=== PATIENT | female | born 1970 | race Caucasian/White ===

== ENCOUNTER 2017-11-06 08:17 | Emergency (ER) | payer MEDICAID, SELFPAY ==
[2017-11-06 08:29] VITALS: BP 140/97; PULSE 92; RESP 16; TEMP 37.1; O2SAT 96
--- NOTE | 2017-11-06 08:34 | W.ED.GENAD ---
Discharge Plan Disposition Patient Disposition: HOME Condition: Stable Discharge Details Chief Complaint: Sorethroat Clinical Impression: Pharyngitis Primary Care Provider: Riri Awad ED Provider: Celia Maloney Home Meds and New Rx's Prescriptions: Continue calcium carbonate-vitamin D3 1 EACH tablet 1 ea PO BID RF: 0 Discharge Instructions Instructions: Pharyngitis (ED) Additional Instructions: Please return immediately to the emergency department if you develop any new or worsening symptoms or if you become otherwise concerned. It is extremely important that you make an appointment to seen by your primary care doctor within the next 1-2 weeks in follow-up for this visit. Stand Alone Forms: Work Release Referrals: Riri Awad PA [Primary Care Provider] - Discharge Data Discharge Date/Time-TO BE ENTERED AT DEPARTURE: 11/06/17 09:06 Medical Decision Making MDM Narrative Medical decision making narrative: Sloane Marte is a 47-year-old woman with history of hypertension presenting to the emergency department with sore throat and subjective fevers since yesterday. On exam she is well and nontoxic-appearing. Her voice is slightly hoarse. She has mild erythema of the posterior oropharynx. No drooling, handling secretions without issue. There is no meningismus. Exam/history not consistent with RPA, GUEST SERVICES AGENT, epiglottitis, meningitis, sepsis. Concern for bacterial versus viral pharyngitis. Plan for rapid strep. Rapid strep negative. Suspect viral pharyngitis. Lengthy discussion with patient regarding return to emergency department precautions and importance of outpatient follow-up with her PCP. Patient has not taken any medications for her sore throat. Will give ibuprofen. Patient is amenable to the plan. Medical Records Medical records reviewed: Yes I reviewed the patient's medical records. Lab Data Lab results reviewed: Yes I reviewed the patient's lab results. HPI - General Adult General Mode of arrival: ambulatory. Date/Time Provider Initiated Documentation: 11/06/17 08:34. Limitations to Documentation: no limitations. Information obtained by: patient and RN notes reviewed. HPI Narrative: Sloane Marte is a 47-year-old woman with history of hypertension presenting to the emergency department with sore throat. Patient reports that she developed sore throat yesterday that seemed somewhat worse this morning. She also has a scratchy voice. She reports no other pain. She has been able to eat and drink without issue. She has had subjective fevers at home. She denies cough, shortness of breath, rash, weakness. Has taken no medications for this. No other recent illnesses. No recent travel. Related Data Home Medications Medication Instructions Recorded Confirmed calcium carbonate-vitamin D3 1 ea PO BID 09/25/12 11/06/17 Allergies Allergy/AdvReac Type Severity Reaction Status Date / Time lactose Allergy Mild Unverified 11/06/17 08:40 Penicillins Allergy Unknown Unverified 11/06/17 08:40 Review of Systems Review of Systems Constitutional: reports subjective fevers Eyes: denies eye pain ENT: denies facial pain, dental pain, reports sore throat Cardiovascular: denies chest pain Respiratory: denies SOB, cough GI: denies abdominal pain, vomiting, diarrhea : denies flank pain MSK: denies back pain, neck pain, arthralgias, myalgias Skin: denies rash Neuro: denies headaches, weakness PFSH Social History Smoking/Tobacco Use Status: Former Tobacco Use Exam Narrative Exam Narrative: Constitutional: well and not-zazmo-rdjcwfkky, pleasant, conversing normally HENT: head atraumatic, normocephalic normal inspection, mucous membranes moist, mild erythema of the posterior oropharynx. Status post tonsillectomy. Handling secretions without issue, no drooling. Eyes: conjunctiva normal, sclera normal, pupils 3mm b/l Neck: no stridor, normal painless ROM, trachea midline, supple Chest: normal inspection Resp: normal work of breathing, LCTAB Cardio: normal rate, normal rhythm, systolic murmur known to patient Back: normal inspection, no rash Skin: warm, dry, normal color, no rash Neuro: alert, not altered, grossly non-focal, normal tone Psych: normal mood, normal affect, normal behavior
[2017-11-06] MEDS: Ibuprofen 400 MG TAB PO (08:50)
--- NOTE | 2017-11-06 08:51 | ED.GENADUL_ITS ---
Discharge Plan Disposition Patient Disposition: HOME Condition: Stable Discharge Details Chief Complaint: Sorethroat Clinical Impression: Pharyngitis Primary Care Provider: Riri Awad ED Provider: Celia Maloney Home Meds and New Rx's Prescriptions: Continue calcium carbonate-vitamin D3 1 EACH tablet 1 ea PO BID RF: 0 Discharge Instructions Instructions: Pharyngitis (ED) Additional Instructions: Please return immediately to the emergency department if you develop any new or worsening symptoms or if you become otherwise concerned. It is extremely important that you make an appointment to seen by your primary care doctor within the next 1-2 weeks in follow-up for this visit. Stand Alone Forms: Work Release Referrals: Riri Awad PA [Primary Care Provider] - Discharge Data Discharge Date/Time-TO BE ENTERED AT DEPARTURE: 11/06/17 09:06 Medical Decision Making MDM Narrative Medical decision making narrative: Sloane Marte is a 47-year-old woman with history of hypertension presenting to the emergency department with sore throat and subjective fevers since yesterday. On exam she is well and nontoxic- appearing. Her voice is slightly hoarse. She has mild erythema of the posterior oropharynx. No drooling, handling secretions without issue. There is no meningismus. Exam/history not consistent with RPA, CRITICAL CARE NURSE SPECIALIST, epiglottitis, meningitis, sepsis. Concern for bacterial versus viral pharyngitis. Plan for rapid strep. Rapid strep negative. Suspect viral pharyngitis. Lengthy discussion with patient regarding return to emergency department precautions and importance of outpatient follow-up with her PCP. Patient has not taken any medications for her sore throat. Will give ibuprofen. Patient is amenable to the plan. Medical Records Medical records reviewed: Yes I reviewed the patient's medical records. Lab Data Lab results reviewed: Yes I reviewed the patient's lab results. HPI - General Adult General Mode of arrival: ambulatory . Date/Time Provider Initiated Documentation: 11/06/17 08:34 . Limitations to Documentation: no limitations . Information obtained by: patient and RN notes reviewed . HPI Narrative: Sloane Marte is a 47-year-old woman with history of hypertension presenting to the emergency department with sore throat. Patient reports that she developed sore throat yesterday that seemed somewhat worse this morning. She also has a scratchy voice. She reports no other pain. She has been able to eat and drink without issue. She has had subjective fevers at home. She denies cough, shortness of breath, rash, weakness. Has taken no medications for this. No other recent illnesses. No recent travel. Related Data Home Medications Medication Instructions Recorded Confirmed calcium carbonate-vitamin D3 1 ea PO BID 09/25/12 11/06/17 Allergies Allergy/AdvReac Type Severity Reaction Status Date / Time lactose Allergy Mild Unverified 11/06/17 08:40 Penicillins Allergy Unknown Unverified 11/06/17 08:40 Review of Systems Review of Systems Constitutional: reports subjective fevers Eyes: denies eye pain ENT: denies facial pain, dental pain, reports sore throat Cardiovascular: denies chest pain Respiratory: denies SOB, cough GI: denies abdominal pain, vomiting, diarrhea : denies flank pain MSK: denies back pain, neck pain, arthralgias, myalgias Skin: denies rash Neuro: denies headaches, weakness PFSH Social History Smoking/Tobacco Use Status: Former Tobacco Use Exam Narrative Exam Narrative: Constitutional: well and juz-iqupt-hpnkxntjk, pleasant, conversing normally HENT: head atraumatic, normocephalic normal inspection, mucous membranes moist, mild erythema of the posterior oropharynx. Status post tonsillectomy. Handling secretions without issue, no drooling. Eyes: conjunctiva normal, sclera normal, pupils 3mm b/l Neck: no stridor, normal painless ROM, trachea midline, supple Chest: normal inspection Resp: normal work of breathing, LCTAB Cardio: normal rate, normal rhythm, systolic murmur known to patient Back: normal inspection, no rash Skin: warm, dry, normal color, no rash Neuro: alert, not altered, grossly non-focal, normal tone Psych: normal mood, normal affect, normal behavior
== END 2017-11-06 09:06 | disposition home or self-care (01) ==
PROVIDERS: Emergency Provider Student in an Organized Health Care Education/Training Program; PCP Physician Assistant Medical
DX: J02.9 Acute pharyngitis, unspecified (principal); R50.9 Fever, unspecified; I10 Essential (primary) hypertension
CPT/HCPCS: 87880; 99282; 87081

== ENCOUNTER 2017-11-10 16:01 | Outpatient (REF) | payer MEDICAID, SELFPAY ==
[2017-11-13 12:07] LABS: Hepatitis C Ab w Rflx HCV PCR Negative (NEGAT)
[2017-11-13 13:12] LABS: HIV-1/2 Ag & Ab Screen Negative (NEGAT)
[2017-11-13 14:10] LABS: Syphilis Serology (RPR) Negative (Negative)
[2017-11-13 14:45] LABS: Chlamydia Result Negative; GC Result Negative; Specimen Description URINE
== END 2017-11-10 16:21 ==
LOC: NCHCN 16:01
PROVIDERS: PCP Physician Assistant Medical; Referring Provider Physician Assistant Medical; Visit Provider Physician Assistant Medical
DX: Z11.3 Encounter for screening for infections with a predominantly sexual mode of transmission (principal); Z11.4 Encounter for screening for human immunodeficiency virus [HIV]; Z11.59 Encounter for screening for other viral diseases; Z01.84 Encounter for antibody response examination
CPT/HCPCS: 86803; 87389; 87491; 87591; 86592

== ENCOUNTER 2019-03-08 08:25 | Outpatient (REF) | payer MEDICAID, SELFPAY ==
[2019-03-08 19:54] LABS: Anion Gap 10.7 mmol/L (3-11); BUN 12 mg/dL (7-18); CO2 26.3 mmol/L (21.0-32.0); CREATININE 0.59 mg/dL (0.55-1.02); Calcium 8.9 mg/dL (8.5-10.1); Calculated LDL 149 mg/dL; Chloride 104 mmol/L (98-107); Cholesterol 216 mg/dL (<200); Glucose 106 mg/dL (74-106); HDL Cholesterol 45 mg/dL (40-60); Potassium 4.3 mmol/L (3.5-5.1); Sodium 141 mmol/L (136-145); TSH 1.42 uIU/mL (0.36-3.74); Triglyceride 110 mg/dL (<150)
== END 2019-03-08 08:45 ==
LOC: NCHCN 08:25
PROVIDERS: PCP Physician Assistant Medical; Visit Provider Nurse Practitioner Family
DX: I10 Essential (primary) hypertension (principal)
CPT/HCPCS: 80048; 80061; 84443

== ENCOUNTER 2019-06-28 10:40 | Emergency (ER) | payer MEDICAID, SELFPAY ==
[2019-06-28 10:56] VITALS: BP 152/96; PULSE 96; RESP 18; TEMP 36.5; O2SAT 96
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
== END 2019-06-28 12:32 | disposition home or self-care (01) ==
PROVIDERS: Emergency Provider Physician Assistant; PCP Physician Assistant Medical
DX: M54.2 Cervicalgia (principal); M54.5 Low back pain; V43.52XA Car driver injured in collision with other type car in traffic accident, initial encounter
CPT/HCPCS: 99283; 72040; L0172

== ENCOUNTER 2019-10-10 00:53 | Outpatient (CLI) | payer MEDICAID, SELFPAY ==
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
== END 2019-10-10 01:13 ==
PROVIDERS: PCP Physician Assistant Medical; Visit Provider Physician Assistant Medical
DX: M50.31 Other cervical disc degeneration, high cervical region (principal); M48.02 Spinal stenosis, cervical region; M54.2 Cervicalgia
CPT/HCPCS: 72141

== ENCOUNTER 2020-05-22 18:31 | Outpatient (REF) | payer MEDICAID, SELFPAY ==
[2020-05-22 18:27] LABS: VALPROIC ACID 24.7 ug/mL (50-100)
[2020-05-22 18:28] LABS: ALT 44 U/L (14-59); AST 24 U/L (15-37); Alkaline Phosphatase 84 U/L (46-116); Anion Gap 10.8 mmol/L (3-11); BUN 11 mg/dL (7-18); Bilirubin, Total 0.5 mg/dL (0.2-1.0); CO2 27.2 mmol/L (21.0-32.0); CREATININE 0.7 mg/dL (0.55-1.02); Calcium 8.9 mg/dL (8.5-10.1); Calculated LDL 125 mg/dL (<100); Chloride 104 mmol/L (98-107); Cholesterol 196 mg/dL (<200); Glucose 118 mg/dL (74-106); HDL Cholesterol 38 mg/dL (40-60); Potassium 3.9 mmol/L (3.5-5.1); Sodium 142 mmol/L (136-145); Total Protein 7.3 g/dL (6.4-8.2); Triglyceride 167 mg/dL (<150)
[2020-05-22 18:29] LABS: Hemoglobin A1C 5.4 % (<5.7)
== END 2020-05-22 18:32 | disposition home or self-care (01) ==
LOC: NCHCN 18:31
PROVIDERS: PCP Physician Assistant Medical; Visit Provider Physician Assistant Medical
DX: R73.03 Prediabetes (principal); I10 Essential (primary) hypertension; Z51.81 Encounter for therapeutic drug level monitoring
CPT/HCPCS: 80053; 80061; 80164; 83036

== ENCOUNTER 2020-07-01 17:35 | Emergency (ER) | payer MEDICAID, SELFPAY ==
--- NOTE | 2020-07-01 17:37 | ED.GENADUL_ITS ---
Discharge Plan Disposition Patient Disposition: HOME Condition: Fair Discharge Details Clinical Impression: COVID-19, Hypokalemia Primary Care Provider: Riri Awad ED Provider: Yeimi King Home Meds and New Rx's Prescriptions: New benzonatate [Tessalon Perles] 100 mg capsule 100 mg PO TID PRN (Reason: cough) Qty: 10 RF: 0 Continued calcium carbonate-vitamin D3 1 EACH tablet 1 ea PO BID RF: 0 divalproex 500 mg Tablet,Delayed Release (Dr/Ec) 500 mg PO BID RF: 0 triamcinolone acetonide 0.025 % Cream 0.025 TOPICAL RF: 0 lisinopril 10 mg Tablet 10 mg PO HS RF: 0 escitalopram oxalate 20 mg Tablet 20 mg PO DAILY RF: 0 Discharge Instructions Instructions: Hypokalemia (ED), Pulse Oximetry (ED), COVID-19 (Coronavirus Disease 2019) (ED) Additional Instructions: Your labs and imaging are reassuring here today. They were significant for a low potassium which was replenished orally. Please encourage potassium rich foods, attached is information on this. In regard to your COVID-19, this is likely what is causing your symptoms. Please encourage water intake. You may continue with Tylenol and/or ibuprofen as needed for discomfort. Prescription for Tessalon Perles has been given to help with cough. This is been sent to your pharmacy of choice. You may qualify for multiclonal antibody infusion as we discussed. Your primary care will reach out to you tomorrow to discuss this further. If you do not hear from them tomorrow morning, please call the office. Please follow-up with primary care in 1 week for reevaluation. You are being sent home with a pulse oximetry, please see attached education on pulse oximetry. If your pulse oximetry reading is less than 90 to 92% please seek care urgently once again. If you develop difficulty breathing, increased shortness of breath, inability to stay hydrated or low oxygen please return to the emergency department once again. Referrals: Riri Awad PA [Primary Care Provider] - Medical Decision Making Patient is a pleasant 49-year-old female presenting today with chief complaint of shortness of breath in the setting of COVID-19. Patient reports she began having symptoms 6 days ago and had a Covid positive test 5 days ago. States over the past 2 to 3 days she developed increased shortness of breath, increased cough and pleuritic chest discomfort. She denies any exertional chest pain. States that she has some nausea but no vomiting. Initially had diarrhea which is now subsided. No melena or bright red blood per rectum. Denies abdominal pain. Has been using Tylenol ibuprofen to help with symptomatic management. Past medical history pertinent for hypertension, psoriasis and anxiety. On exam, patient appears anxious. No respiratory distress. Lungs are clear in all park. Patient is tachycardic with a heart rate of 104. Symptoms are most consistent with known diagnosis of COVID-19. However, unable to rule out pulmonary embolism with PERC criteria based on the patient's tachycardia. Plan to obtain D-dimer for screening. Will obtain bedside x-ray to evaluate for potential bacterial pneumonia although none is appreciated on exam. Patient is afebrile. Will give hydration and reassess EKG reviewed by Dr. Grant. Patient is in normal sinus rhythm with a rate of 95. No acute ischemic changes noted. History and exam not consistent with ACS, dissection. X-ray reviewed by radiology: FINDINGS: Lungs: The lungs are clear without opacity or suspicious parenchymal finding. Pleural spaces: Unremarkable. No pleural effusion. No pneumothorax. Heart/Mediastinum: Unremarkable. No cardiomegaly. Bones/joints: Unremarkable. IMPRESSION: No acute cardiopulmonary process. Labs reviewed. No leukocytosis. Stable H&H. D-dimer within normal limits. Patient potassium 3.1, replenish this orally. Reevaluated patient. Heart rate is coming down. She does appear less anxious a nd is resting comfortably. She continues to have no respiratory distress. Advised her symptoms are associated with her COVID-19. We did discuss [id number] and home regimens that may help with symptomatic management. Patient is requesting medication to help with cough, will prescribe Tessalon Perles. Patient with patient's BMI, I am concerned she is at increased risk for complications and she is a candidate for Mab infusion. I did reach out to on- call primary care physician, Dr. Milner, who is aware of the patient and will help arrange for this as an outpatient tomorrow. Patient I did discuss the potential for infusion. Patient will be sent home with pulse oximeter. Strict return precautions were discussed. All of her questions and concerns were addressed and she is in agreement with this plan. HPI General Mode of arrival: ambulatory . Date/Time Provider Initiated Documentation: 07/01/20 17:37 . Limitations to Documentation: no limitations . Information obtained by: patient and RN notes reviewed . History of Present Illness 49 year old F presents to the emergency department with the chief complaint of increased SOB associated with known COVID diagnosis, described as moderate, Quality is described as aching, and is localized to the chest. Patient reports no radiation. Patient started experiencing this day(s) and it has been constant. No relieving factors improve symptom(s), No exacerbating factors reported . Patient notes chest pain (reports discomfort with coughing), cough, loss of appetite, nausea/vomiting (intermittent nausea, none currently) and shortness of breath; denies fever/chills and rash. Patient did receive the following treatments prior to arrival, NSAID and other (tylenol) Related Data Home Medications Medication Instructions Recorded Confirmed calcium carbonate-vitamin D3 1 ea PO BID 09/25/12 06/28/19 divalproex 500 mg PO BID 06/28/19 07/01/20 escitalopram oxalate 20 mg PO DAILY 06/28/19 07/01/20 lisinopril 10 mg PO HS 06/28/19 07/01/20 triamcinolone acetonide 0.025 TOPICAL 06/28/19 benzonatate [Tessalon Perles] 100 mg PO TID PRN #10 cap 07/01/20 Previous Rx's Medication Instructions Recorded benzonatate [Tessalon Perles] 100 mg PO TID PRN #10 cap 07/01/20 Allergies Allergy/AdvReac Type Severity Reaction Status Date / Time lactose Allergy Mild Unverified 07/01/20 17:49 Penicillins Allergy Unknown Unverified 07/01/20 17:49 General ALBINO: 3 Review of Systems Constitutional Constitutional: Reports as per HPI, Reports chills, Denies fever(s), Reports headache(s), Reports lethargy and Reports poor appetite Eyes Eyes: Denies change in vision ENT Ears, Nose, Mouth, and Throat: Denies dizziness and Reports headache(s) Cardiovascular Cardiovascular: Reports as per HPI, Denies chest pain at rest, Denies chest pain with activity, Denies lightheadedness, Reports dyspnea and Reports dyspnea on exertion Respiratory Respiratory: Reports as per HPI, Denies chest congestion, Reports cough, Denies hemoptysis, Denies pain on inspiration, Reports pain with cough, Reports dyspnea, Reports dyspnea on exertion and Denies wheezing Gastrointestinal Gastrointestinal: Reports as per HPI, Denies abdominal pain, Denies diarrhea, Reports nausea and Denies vomiting Musculoskeletal Musculoskeletal: Reports as per HPI and Denies back pain Integumentary/Breasts Skin/Breast: Reports as per HPI and Denies rash Neurologic Neurologic: Reports as per HPI, Denies dizziness and Reports headache(s) Allergic/Immunologic Allergic/Immunologic: Denies wheezing [facility] Social History Smoking/Tobacco Use Status: Former Tobacco Use Smoking risk assessment performed?: Yes Drug use: Never Substance use type: does not use Do you feel safe in your relationship?: Yes Exam Const General: cooperative, healthy appearing, uncomfortable, no acute distress, well developed and anxious Nutritional Appearance: well nourished and obese Orientation: alert, awake and oriented x3 HENMT Head: normal to inspection Ears: hearing grossly normal bilaterally Face and sinus: normal facial exam Mouth: oral mucosae normal, lip normal, tongue normal and mucous membranes dry (looks dry) Teeth and gingiva: dentition normal Throat: posterior oropharynx normal, tonsils normal and uvula midline Chest Chest: normal inspection of the chest, normal palpation of entire chest wall and no crepitus Resp Effort & Inspection: normal respiratory effort, able to speak in complete sentences and no respiratory distress Auscultation: clear to auscultation bilaterally, no rales, no rhonchi and no wheezes Cardio Rate: tachycardic (104) Rhythm: regular rhythm Heart Sounds: S1 normal and S2 normal GI Inspection: normal to inspection, no edema and non-distended Palpation: soft, no hepatosplenomegaly, not firm, no guarding, not rigid and nontender Auscultation: normal bowel sounds Skin General skin exam: no rashes or lesions noted Trauma: no lacerations or abrasions Neuro General: patient alert, patient awake and patient oriented x3 Cognition: normal cognition Speech: speech normal Gait: normal gait Extrem General: normal to inspection, capillary refill normal, no pedal edema, no calf tenderness and normal gait Psych Appearance: grossly normal and well kempt Mental Status: mental status grossly normal Speech and Movement: speech and movement normal
[2020-07-01 17:43] VITALS: BP 153/92; PULSE 105; RESP 18; TEMP 36.5; O2SAT 96
--- NOTE | 2020-07-01 18:00 | RT.EKG_ITS ---
APPROVED REPORT Exam: Resting ECG Reason for Exam: SOB Patient Location: E HR:95 bpm ECG Measurements Heart Rate 95 AXIS ID 177 P 54 QRSd 85 QRS 26 QT 356 T 44 QTc 448 Conclusion Sinus rhythm...normal P axis, V-rate 60- 99
[2020-07-01 18:20] LABS: Abs Immature Grans 0.01 10^3/uL (0.0-0.06); Absolute Basophil Count 0.01 10^3/uL (0.0-0.2); Absolute Eosinophil Count 0.04 10^3/uL (0.0-0.7); Absolute Lymphocyte Count 0.83 10^3/uL (1.2-3.4); Absolute Monocyte Count 0.44 10^3/uL (0.1-0.8); Absolute Neutrophil Count 2.88 10^3/uL (1.2-6.7); Basophils % 0.2; HCT 36.8 % (36.0-46.0); HGB 12.4 g/dL (11.2-15.7); Immature Grans % 0.2; Lymphocytes % 19.7; MCH 32.1 pg (27.0-33.0); MCHC 33.7 % (32.0-36.0); MCV 95.3 fL (80-95); MPV 8.4 fL (8.0-11.0); Monocytes % 10.5; Neutrophils % 68.4; Nucleated RBC 0 %; Platelet Count 207 10^3/uL (130-400); RBC 3.86 10^6/uL (3.93-5.22); RDW 14.3 % (11.7-14.6); RDW-SD 50.2 fL; WBC 4.21 10^3/uL (4.4-10.8)
[2020-07-01 18:25] LABS: ALT 25 U/L (14-59); AST 18 U/L (15-37); Albumin 3.8 g/dL (3.4-5.0); Alkaline Phosphatase 92 U/L (46-116); Anion Gap 10.6 mmol/L (3-11); BUN 8 mg/dL (7-18); Bilirubin, Total 0.5 mg/dL (0.2-1.0); CO2 26.4 mmol/L (21.0-32.0); CREATININE 0.8 mg/dL (0.55-1.02); Calcium 8.7 mg/dL (8.5-10.1); Chloride 103 mmol/L (98-107); Glucose 143 mg/dL (74-106); Potassium 3.1 mmol/L (3.5-5.1); Sodium 140 mmol/L (136-145); Total Protein 7.6 g/dL (6.4-8.2)
[2020-07-01 18:33] LABS: PTT Activated 24.7 sec (21.0-27.5); Prothrombin Time 10.3 sec (9.3-11.0)
[2020-07-01 18:50] LABS: D-Dimer 464 ng/mlFEU (<500)
--- NOTE | 2020-07-01 19:01 | DI.RAD_ITS ---
Exam(s) XR PORTABLE CHEST AP EXAM: XR PORTABLE CHEST AP CLINICAL HISTORY: covid +, increased SOB. TECHNIQUE: 2D digital imaging was performed. COMPARISON: No exams were available for comparison FINDINGS: Heart size is upper normal. The mediastinum is not widened. Lungs are clear. No infiltrates nor obvious pleural effusions. IMPRESSION: No acute pulmonary findings on this single AP portable view of the chest. DATA REPOSITORY: RADIATION DOSE DELIVERED: All CT scans at this facility use at least one of these dose optimization techniques: automated exposure control; mA and/or kV adjustment per patient size (includes targeted e xams where dose is matched to clinical indication); or iterative reconstruction.
--- NOTE | 2020-07-01 19:21 | DI.VRAD_ITS ---
PROCEDURE INFORMATION: Exam: XR Chest Exam date and time: 07/01/2020 7:01 PM Age: 49 years old Clinical indication: Shortness of breath TECHNIQUE: Imaging protocol: XR of the chest. Views: 1 view. COMPARISON: No relevant prior studies available. FINDINGS: Lungs: The lungs are clear without opacity or suspicious parenchymal finding. Pleural spaces: Unremarkable. No pleural effusion. No pneumothorax. Heart/Mediastinum: Unremarkable. No cardiomegaly. Bones/joints: Unremarkable. IMPRESSION: No acute cardiopulmonary process. Dictated and Authenticated by: Fabrice Summers MD. Ordering:JUDY Jalloh MD
--- NOTE | 2020-07-01 19:33 | NUR.NOTE ---
Referral to Care Management, patient needs [facility] 07/02/20. Dr. Alvarenga quality control lab technician is aware.Nursing Note:
[2020-07-01 19:45] VITALS: BP 143/78; PULSE 96; RESP 18; TEMP 36.5; O2SAT 96
== END 2020-07-01 19:49 | disposition home or self-care (01) ==
PROVIDERS: Emergency Provider Physician Assistant; PCP Physician Assistant Medical
DX: U07.1 COVID-19 (principal); R06.02 Shortness of breath; R05 Cough; R07.81 Pleurodynia; E87.6 Hypokalemia
CPT/HCPCS: 36415; 80053; 93005; 99285; 71045; 85025; 85379; 85610; 85730; 93010; 99284

== ENCOUNTER 2020-07-02 10:44 | Outpatient (CLI) | payer MEDICAID, SELFPAY ==
[2020-07-02 11:05] VITALS: BP 128/87; PULSE 97; RESP 16; TEMP 36; O2SAT 97
[2020-07-02 11:10] VITALS: BP 128/87; PULSE 97; RESP 16; TEMP 36; O2SAT 97
[2020-07-02] MEDS: Normal Saline 500 ML 30 ML IV (11:36)
[2020-07-02] MEDS: Normal Saline Flush 10 ML SYR IVP (11:37)
[2020-07-02 11:50] VITALS: BP 127/85; PULSE 91; RESP 14; TEMP 36.5; O2SAT 96
[2020-07-02 12:20] VITALS: BP 121/85; PULSE 95; TEMP 36.4; O2SAT 95
[2020-07-02 12:49] VITALS: BP 129/85; PULSE 88; RESP 12; TEMP 36.9; O2SAT 98
[2020-07-02 13:25] VITALS: BP 119/85; PULSE 85; RESP 12; TEMP 36.8; O2SAT 97
== END 2020-07-02 10:45 | disposition home or self-care (01) ==
LOC: INF 10:47
PROVIDERS: PCP Physician Assistant Medical; Visit Provider Family Medicine
DX: U07.1 COVID-19 (principal)
CPT/HCPCS: 96365

== ENCOUNTER 2020-07-06 10:16 | Outpatient (REF) | payer MEDICAID, SELFPAY ==
[2020-07-06 15:34] LABS: Abs Immature Grans 0.03 10^3/uL (0.0-0.06); Absolute Basophil Count 0.02 10^3/uL (0.0-0.2); Absolute Eosinophil Count 0.13 10^3/uL (0.0-0.7); Absolute Lymphocyte Count 1.39 10^3/uL (1.2-3.4); Absolute Monocyte Count 0.38 10^3/uL (0.1-0.8); Absolute Neutrophil Count 2.81 10^3/uL (1.2-6.7); Basophils % 0.4; Eosinophils % 2.7; HCT 37.2 % (36.0-46.0); HGB 12.3 g/dL (11.2-15.7); Immature Grans % 0.6; Lymphocytes % 29.2; MCH 31.8 pg (27.0-33.0); MCHC 33.1 % (32.0-36.0); MCV 96.1 fL (80-95); MPV 8.8 fL (8.0-11.0); Neutrophils % 59.1; Nucleated RBC 0 %; Platelet Count 259 10^3/uL (130-400); RBC 3.87 10^6/uL (3.93-5.22); RDW 13.9 % (11.7-14.6); RDW-SD 48.9 fL; WBC 4.76 10^3/uL (4.4-10.8)
[2020-07-06 15:44] LABS: Anion Gap 10.7 mmol/L (3-11); BUN 13 mg/dL (7-18); CO2 27.3 mmol/L (21.0-32.0); CREATININE 0.6 mg/dL (0.55-1.02); Calcium 8.4 mg/dL (8.5-10.1); Chloride 103 mmol/L (98-107); Glucose 97 mg/dL (74-106); Sodium 141 mmol/L (136-145)
== END 2020-07-06 10:17 | disposition home or self-care (01) ==
LOC: NCHCN 10:16
PROVIDERS: PCP Physician Assistant Medical; Visit Provider Physician Assistant Medical
DX: E87.6 Hypokalemia (principal); U07.1 COVID-19
CPT/HCPCS: 80048; 85025

== ENCOUNTER 2020-08-07 02:55 | Outpatient (CLI) | payer MEDICAID, SELFPAY ==
[2020-08-07 15:41] LABS: Abs Immature Grans 0.02 10^3/uL (0.0-0.06); Absolute Basophil Count 0.04 10^3/uL (0.0-0.2); Absolute Eosinophil Count 0.17 10^3/uL (0.0-0.7); Absolute Lymphocyte Count 1.88 10^3/uL (1.2-3.4); Absolute Monocyte Count 0.69 10^3/uL (0.1-0.8); Absolute Neutrophil Count 3.87 10^3/uL (1.2-6.7); Basophils % 0.6; Eosinophils % 2.5; HCT 37.4 % (36.0-46.0); HGB 12.4 g/dL (11.2-15.7); Immature Grans % 0.3; Lymphocytes % 28.2; MCH 32.1 pg (27.0-33.0); MCHC 33.2 % (32.0-36.0); MCV 96.9 fL (80-95); MPV 8.8 fL (8.0-11.0); Monocytes % 10.3; Neutrophils % 58.1; Nucleated RBC 0 %; Platelet Count 300 10^3/uL (130-400); RBC 3.86 10^6/uL (3.93-5.22); RDW 14.2 % (11.7-14.6); RDW-SD 50.3 fL; WBC 6.67 10^3/uL (4.4-10.8)
[2020-08-07 17:09] LABS: ALT 37 U/L (14-59); AST 24 U/L (15-37); Albumin 4.1 g/dL (3.4-5.0); Alkaline Phosphatase 81 U/L (46-116); BUN 11 mg/dL (7-18); Bilirubin, Total 0.4 mg/dL (0.2-1.0); CREATININE 0.7 mg/dL (0.55-1.02); Calcium 9.1 mg/dL (8.5-10.1); Chloride 104 mmol/L (98-107); Glucose 97 mg/dL (74-106); Potassium 4.1 mmol/L (3.5-5.1); Sodium 142 mmol/L (136-145); Total Protein 7.5 g/dL (6.4-8.2)
== END 2020-08-07 02:56 | disposition home or self-care (01) ==
LOC: LBO 02:55
PROVIDERS: PCP Physician Assistant Medical; Visit Provider Physician Assistant Medical
DX: R53.83 Other fatigue (principal); U07.1 COVID-19
CPT/HCPCS: 36415; 80053; 84443; 85025

== ENCOUNTER 2020-10-14 15:33 | Outpatient (REF) | payer MEDICAID, SELFPAY ==
[2020-10-14 20:23] LABS: Anion Gap 9.9 mmol/L (3-11); BUN 12 mg/dL (7-18); CO2 28.1 mmol/L (21.0-32.0); CREATININE 0.6 mg/dL (0.55-1.02); Chloride 101 mmol/L (98-107); Glucose 72 mg/dL (74-106); Potassium 3.7 mmol/L (3.5-5.1); Sodium 139 mmol/L (136-145)
== END 2020-10-14 15:34 | disposition home or self-care (01) ==
LOC: NCHCN 15:33
PROVIDERS: PCP Physician Assistant Medical; Visit Provider Physician Assistant Medical
DX: I10 Essential (primary) hypertension (principal); G43.909 Migraine, unspecified, not intractable, without status migrainosus; F32.9 Major depressive disorder, single episode, unspecified; Z51.81 Encounter for therapeutic drug level monitoring
CPT/HCPCS: 80048; 80164; 83735

== ENCOUNTER 2021-05-13 03:18 | Inpatient (IN) | payer MEDICAID, SELFPAY ==
[2021-05-13] VITALS (84 sets, daily range): BP systolic 111–170; BP diastolic 71–156; PULSE 98–124; RESP 10–32; TEMP 36.3–36.7; O2SAT 88–98
--- NOTE | 2021-05-13 | DI.MRI_ITS ---
Exam(s) MR ABDOMEN WO EXAM: MR ABDOMEN WO CLINICAL HISTORY: gallstone pancreatitis/elevated T Hood. TECHNIQUE: Multiplanar multisequence MRA of the Abdomen was performed. COMPARISON: US US ABDOMEN LIMITED from 05/13/[address] ABDOMEN PELVIS W from 05/13/2021 FINDINGS: Liver: The liver measures 21 cm long. Pancreas: There is mild stranding seen around the head and proximal body of the pancreas. There is s ome infiltration in the pancreatic head. No focal peripancreatic fluid collection is present. Gallbladder and Bile Ducts: Gallstones are present. No gallbladder wall thickening is present. Ther e is pericholecystic fluid. There is no biliary ductal dilatation. No choledocholithiasis is presen t. Adrenals: Unremarkable. Kidneys: Unremarkable. Spleen: Unremarkable. Bowel: Unremarkable. Aorta: Unremarkable. Soft Tissues: Unremarkable. Bone: Unremarkable. Lymph Nodes: Unremarkable. IMPRESSION: 1. Cholelithiasis. No biliary ductal dilatation or choledocholithiasis. Mild pericholecystic fluid. 2. Mild edema seen in the pancreatic head with a small amount of fluid around the pancreatic head and proximal body. The findings raise a question of acute pancreatitis. No focal fluid collection is s een to suggest abscess or pseudocyst. 3. Hepatomegaly. DATA REPOSITORY:
--- NOTE | 2021-05-13 03:30 | DI.CT_ITS ---
Exam(s) CT ABDOMEN PELVIS W EXAM: CT ABDOMEN PELVIS W CLINICAL HISTORY: epigastric/RUQ pain TECHNIQUE: Imaging Protocol: Axial computed tomography images with coronal and sagittal reformatted images were created and reviewed CONTRAST MATERIAL: Intravenous: Omnipaque 350 Contrast volume:100 mL Oral: No COMPARISON: No exams were available for comparison FINDINGS: ABDOMEN: Lung Bases: Normal where visualized. Liver: There is diffuse fatty infiltration of the liver. The liver measures 22 cm long. No measurable mass. Portal, Superior Mesenteric, and Splenic Veins: Unremarkable. Gallbladder and Biliary Tract: Cholelithiasis. There is a small amount of pericholecystic fluid. No b iliary ductal dilatation. Pancreas: Normal density, no abnormal calcifications or inflammatory process. Spleen: Normal. Adrenals: No masses seen. Kidneys: Normal size, contour and axis. No radiodense stones or obstructive uropathy. No masses seen. Abdominal Aorta: Abdominal portion non-dilated. Bowel: No obstruction or bowel wall thickening. The patient appears status post appendectomy. Peritoneal Cavity: No ascites, collection or mesenteric inflammatory response. No free air. Lymph Nodes: Within normal limits. Bones: Within normal limits for the patient's age. Soft Tissues: Unremarkable. PELVIS: Bladder: Symmetric distention, no gross wall thickening. Reproductive Organs: Patient has an IUD which is in good position. Lymph Nodes: Within normal limits. Bones: Within normal limits for the patient's age. IMPRESSION: Cholelithiasis with small amount of pericholecystic fluid. This may represent acute cholecystitis. Ga llbladder ultrasound is recommended for further evaluation. RADIATION DOSE DELIVERED: 1,236.93mGy.cm Total DLP DATA REPOSITORY: All CT scans at this facility are submitted to the National Radiology Data Registry (NRDR) Dose Index Registry (DIR) with the [employer] (A[employer]). RADIATION OPTIMIZATION: All CT scans at this facility use at least one of these dose optimization te chniques: automated exposure control; mA and/or kV adjustment per patient size (includes targeted exa ms where dose is matched to clinical indication); or iterative reconstruction.
--- NOTE | 2021-05-13 03:41 | ED.GENADUL_ITS ---
Discharge Plan Disposition Patient Disposition: [facility] INPATIENT Condition: Serious Discharge Details Clinical Impression: Acute cholecystitis, Acute pancreatitis Admit Date/Time: 05/13/21 09:21 Admit Provider: Marce Allen Attending Provider: Marce Allen Primary Care Provider: Riri Awad ED Provider: Manjeet Maloney Discharge Data Discharge Date/Time-TO BE ENTERED AT DEPARTURE: 05/13/21 12:56 Medical Decision Making <Ronak Grant MD - Last Filed: 05/13/21 07:28> 50-year-old female presents from home. States she was awakened early this morning with epigastric pain that is sharp and constant. One episode of emesis and some nausea. No fever or chills. She has had an appendectomy and previous C-sections. On exam patient is tender in the epigastrium and right upper quadrant. Differential diagnosis includes biliary colic, cholecystitis, pancreatitis. Patient IV established, given fluids, antiemetic, analgesia. Patient's laboratories reveal a white blood cell count of 12, hematocrit 42, platelets 407. Sodium 133, potassium 3.1, BUN 19, creatinine 0.9. Total bili of 2.9, AST 177, ALT 121, lipase 10,682. CT images: Cholelithiasis within a distended gallbladder with small amount of adjacent fluid suggesting possible acute cholecystitis. No choledocholithiasis noted. Bile ducts are nondilated. Must exclude choledocholithiasis. Patient referred for ultrasound. Please see Dr. Maloney's note regarding final impression and disposition. Lab Data Lab results reviewed: Yes I reviewed the patient's lab results. Labs: Laboratory Results - last 24 hr 05/13/21 05/13/21 05/13/21 03:37 03:37 04:05 WBC 12.40 H RBC 4.51 Hgb 14.4 Hct 42.3 MCV 93.8 MCH 31.9 MCHC 34.0 RDW 13.8 Plt Count 407 H MPV 9.0 Immature Gran % 0.2 Neutrophils % 75.7 Lymphocytes % 16.1 Monocytes % 7.3 Eosinophils % 0.3 Basophils % 0.4 Nucleated RBC % 0 Absolute Neutrophils 9.39 H Absolute Lymphocytes 2.00 Absolute Monocytes 0.91 H Absolute Eosinophils 0.04 Absolute Basophils 0.05 Sodium 133 L Potassium 3.1 L Chloride 93 L Carbon Dioxide 27.2 Anion Gap 12.8 H BUN 19 H Creatinine 0.9 Estimated GFR/1.73 m2 >= 60.00 Glucose 279 H Calcium 9.2 Magnesium 2.0 Total Bilirubin 2.9 H AST 177 H ALT 121 H Alkaline Phosphatase 94 Total Protein 8.3 H Albumin 4.6 Lipase 96796 H Urine Color Yellow Urine Clarity Clear Urine pH 6.5 Ur Specific [place] 1.020 Urine Protein Trace H Urine Ketones 40 H Urine Blood Small H Urine Nitrite Negative Urine Bilirubin Negative Urine Urobilinogen 2.0 H Ur Leukocyte Esterase Trace H Urine RBC 5-10 H Urine WBC 10-20 H Ur Epithelial Cells Few Urine Crystals Negative Urine Bacteria Few Urine Casts Negative Urine Mucus Negative Urine Other Rare Trichomonas Ur Culture Indicated? Yes Urine Glucose 100 HPI <Ronak Grant MD - Last Filed: 05/13/21 07:28> General Mode of arrival: ambulatory . Date/Time Provider Initiated Documentation: 05/13/21 03:35 . Limitations to Documentation: no limitations . Information obtained by: patient . History of Present Illness 50 year old F presents to the emergency department with the chief complaint of Epigastric pain, described as moderate, and is localized to the abdomen. Patient reports no radiation. Patient started experiencing this hour(s) and it has been constant. improves with No relieving factors improve symptom(s), No e xacerbating factors reported . Patient notes loss of appetite and nausea/vomiting; denies fever/chills. Patient did receive the following treatments prior to arrival, none Related Data Home Medications Medication Instructions Recorded Confirmed lisinopril 10 mg tablet 10 mg PO HS 06/28/19 05/13/21 adalimumab 40 mg/0.4 mL 40 mg SUBCUT Q2W 05/13/21 05/13/21 subcutaneous pen kit (Humira(CF) Pen) amitriptyline 10 mg tablet 20 mg PO HS 05/13/21 05/13/21 benzonatate 100 mg capsule 100 mg PO TID PRN 05/13/21 05/13/21 hydrochlorothiazide 25 mg tablet 25 mg PO DAILY 05/13/21 05/13/21 Allergies Allergy/AdvReac Type Severity Reaction Status Date / Time lactose Allergy Mild Unverified 05/13/21 03:27 Penicillins Allergy Unknown Unverified 05/13/21 03:27 General Stated Complaint: Abd Prob ALBINO: 3 Review of Systems <Ronak Grant MD - Last Filed: 05/13/21 07:28> Narrative: 6 systems reviewed and otherwise negative PFSH <Ronak Grant MD - Last Filed: 05/13/21 07:28> All Active Problems Former smoker (Acute) Gallstone pancreatitis (Acute) Gallstones (Acute) COVID-19 (Acute) Hypokalemia (Acute) Acute cholecystitis (Acute) Acute pancreatitis (Acute) Social History Smoking/Tobacco Use Status: Former Tobacco Use Smoking risk assessment performed?: Yes Drug use: Never Substance use type: does not use Do you feel safe in your relationship?: Yes Exam <Ronak Grant MD - Last Filed: 05/13/21 07:28> Narrative Exam Narrative: GEN: awake, alert, oriented 3. Pleasant, well groomed, interactive. HEAD: Normocephalic, atraumatic ENT: Mucous membranes moist, oropharynx unremarkable, External ear exam unremarkable EYES: PERRL, EOMI NECK: Full ROM, no JYOTSNA, no menigismus CHEST/RESP: Nontender, clear to auscultation bilateral, no wheeze/rhonchi/rales CARDIOVASCULAR: regular and tqachycardic, no murmur, rub terry. 2+ Rad pulse bilateral ABDOMEN: Soft, tender in the epigastrium and right upper quadrant, no mass. +Bowel sounds EXT: Full ROM, no edema, no rash Neuro: Grossly normal neurologic exam, conversant, interactive. Psych: Speech fluent, thoughts congruent, affect normal Course <Ronak Grant MD - Last Filed: 05/13/21 07:28> Vital Signs Vital signs: Vital Signs Temperature 36.3 C L 05/13/21 03:22 Pulse 124 H 05/13/21 03:22 Respiratory Rate 22 05/13/21 03:22 Blood Pressure 138/86 05/13/21 03:22 Pulse Oximetry 97 05/13/21 03:22 Temperature 36.3 C L 05/13/21 03:22 Temperature Source Skin 05/13/21 03:22 Pulse 124 H 05/13/21 03:22 Respiratory Rate 22 05/13/21 03:22 Respiratory Effort 05/13/21 03:25 Blood Pressure 138/86 05/13/21 03:22 Blood Pressure Position Supine 05/13/21 03:22 Pulse Oximetry 97 05/13/21 03:22 Oxygen Delivery Method Room Air 05/13/21 03:22 Oxygen Flow Rate 0 05/13/21 03:22 Pain Level 10 05/13/21 03:22 Sign Out <Ronak Grant MD - Last Filed: 05/13/21 07:28> Sign Out Data: Sign Out Comment: Followup US Last updated by Ronak Grant MD at 05/13/21 07:31
[2021-05-13] MEDS: Ondansetron 4 MG/2 ML VIAL IVP ×4 (03:47→15:36)
[2021-05-13] MEDS: HYDROmorphone 2 MG/ML VIAL 1 MG IVP ×2 (03:47→07:00)
[2021-05-13] MEDS: Normal Saline 1,000 ML 1000 ML IV (03:48)
[2021-05-13 04:03] LABS: Abs Immature Grans 0.03 10^3/uL (0.0-0.06); Absolute Basophil Count 0.05 10^3/uL (0.0-0.2); Absolute Eosinophil Count 0.04 10^3/uL (0.0-0.7); Basophils % 0.4; Eosinophils % 0.3; HCT 42.3 % (36.0-46.0); HGB 14.4 g/dL (11.2-15.7); Immature Grans % 0.2; Lymphocytes % 16.1; MCH 31.9 pg (27.0-33.0); MCV 93.8 fL (80-95); Monocytes % 7.3; Neutrophils % 75.7; Nucleated RBC 0 %; Platelet Count 407 10^3/uL (130-400); RBC 4.51 10^6/uL (3.93-5.22); RDW 13.8 % (11.7-14.6); RDW-SD 47.6 fL
[2021-05-13 04:06] LABS: Absolute Monocyte Count 0.91 10^3/uL (0.1-0.8); Absolute Neutrophil Count 9.39 10^3/uL (1.2-6.7)
[2021-05-13 04:16] LABS: Bilirubin Negative (Negative); Blood Small (Negative); Clarity Clear (Clear); Glucose 100 mg/dL (Negative); Ketones 40 mg/dL (Negative); Leukocyte Esterase Trace (Negative); Nitrite Negative (Negative); pH 6.5 (5-8)
[2021-05-13 04:19] LABS: ALT 121 U/L (14-59); AST 177 U/L (15-37); Albumin 4.6 g/dL (3.4-5.0); Alkaline Phosphatase 94 U/L (46-116); Anion Gap 12.8 mmol/L (3-11); BUN 19 mg/dL (7-18); Bilirubin, Total 2.9 mg/dL (0.2-1.0); CO2 27.2 mmol/L (21.0-32.0); CREATININE 0.9 mg/dL (0.55-1.02); Calcium 9.2 mg/dL (8.5-10.1); Chloride 93 mmol/L (98-107); Glucose 279 mg/dL (74-106); Potassium 3.1 mmol/L (3.5-5.1); Sodium 133 mmol/L (136-145); Total Protein 8.3 g/dL (6.4-8.2)
[2021-05-13 04:24] LABS: Bacteria Few HPF (Negative); C & S Indicated? Yes; Casts Negative LPF (Negative); Crystals Negative HPF (Negative); Epithelial Cells Few HPF (Negative); Mucus Negative (Negative)
[2021-05-13 04:34] LABS: Lipase 10682 U/L (73-393)
[2021-05-13] MEDS: POTASSIUM CHLORIDE/0.9% NACL 1,000 ML 150 MEQ IV (04:48)
[2021-05-13] MEDS: Omnipaque 350 MG/ML 100 ML BTL IJ (04:50)
[2021-05-13] MEDS: Normal Saline Flush 10 ML SYR IVP ×2 (04:51→13:28)
--- NOTE | 2021-05-13 07:00 | DI.US_ITS ---
Exam(s) US ABDOMEN LIMITED EXAM: US ABDOMEN LIMITED CLINICAL HISTORY: RUQ pain, gallstones TECHNIQUE: Ultrasound abdomen performed using standard protocol. COMPARISON: CT CT ABDOMEN PELVIS W from 05/13/2021 FINDINGS: PANCREAS: Normal where visualized. LIVER: There is diffuse increased echogenicity of the liver consistent with fatty infiltration. Hepa topedal flow in the Portal Vein. The liver measures in 21 length. GALLBLADDER:Multiple mobile gallstones are present. No evidence of wall thickening. No pericholecyst ic fluid identified. BILIARY SYSTEM: Common bile duct measures < 7 mm. No intrahepatic biliary ductal dilation. AGOSTO'S SIGN: Positive RIGHT KIDNEY: Kidney is normal in size. No evidence of renal calculi. No evidence of hydronephrosis. No renal mass or cyst identified. ASCITES: None seen. IMPRESSION: Cholelithiasis with a positive sonographic Agosto sign suggestive of acute cholecystitis. DATA REPOSITORY:
--- NOTE | 2021-05-13 07:08 | DI.VRAD_ITS ---
PROCEDURE INFORMATION: Exam: CT Abdomen And Pelvis With Contrast Exam date and time: 05/13/2021 4:36 AM Age: 50 years old Clinical indication: Abdominal pain; Localized; Right upper quadrant (ruq); Prior surgery; Surgery date: 6+ months; Surgery type: C-sections; Additional info: Acute ruq pain TECHNIQUE: Imaging protocol: Computed tomography of the abdomen and pelvis with contrast. Radiation optimization: All CT scans at this facility use at least one of these dose optimization techniques: automated exposure control; mA and/or kV adjustment per patient size (includes targeted exams where dose is matched to clinical indication); or iterative reconstruction. Contrast material: OMNI 350; Contrast volume: 100 ml; Contrast route: INTRAVENOUS (IV); COMPARISON: XR PORTABLE CHEST AP 07/01/2020 6:55 PM FINDINGS: Liver: Hepatomegaly. Fatty Infiltration. No mass. Gallbladder and bile ducts: Cholelithiasis within a distended gallbladder with small amount of adjacent fluid suggesting possible acute cholecystitis. No definite wall thickening. Nuclear medicine HIDA scan and/or gallbladder ultrasound may be of benefit to confirm cystic duct obstruction. No choledocholithiasis. Bile ducts nondilated. Pancreas: No enlargement. No mass. No ductal dilatation. Spleen: Normal size. No mass. Adrenal glands: No mass. No enlargement. No hemorrhage. Kidneys and ureters: No mass. No hydronephrosis. No hydroureter or ureterolithiasis. Stomach and bowel: Stomach decompressed and relatively unremarkable. Small bowel normal caliber without mechanical obstruction or pneumatosis. Large bowel relatively unremarkable and decompressed distally. No significant diverticulosis or diverticulitis. No colitis. Appendix: Status post appendectomy. Intraperitoneal space: No significant free fluid. No free intraperitoneal air. Vasculature: Aorta normal caliber without aneurysm. Lymph nodes: No significant lymphadenopathy demonstrated. Urinary bladder: No wall thickening, mass or calculus. Reproductive: Unremarkable uterus. IUD in place without perforation or extrusion. Ovarian follicular changes. No dominant adnexal mass. Bones/joints: Mild degenerative changes noted throughout the spine. No fracture or subluxation. Soft tissues: Small uncomplicated fat containing umbilical hernia. Generous subcutaneous adipose tissues. IMPRESSION: 1. Cholelithiasis within a distended gallbladder with small amount of adjacent fluid suggesting possible acute cholecystitis. No definite wall thickening. Nuclear medicine HIDA scan and/or gallbladder ultrasound may be of benefit to confirm cystic duct obstruction. 2. Nonemergent findings as described above. Dictated and Authenticated by: Talat Hernandez MD. Ordering:VICTORIANO Simons MD
[2021-05-13 07:45] LABS: Source Nasal/Nares
--- NOTE | 2021-05-13 08:11 | NUR.NOTE ---
Nursing Note:Pt is A/O x3 HRR but Tachy, B/P high in response to pain, came down after zofran and pain meds. BS Hypoactive, pain on Right side of abdomen and much worse with gentle touching. No Major swelling noted in extremities, Mild trace edema in BLLE, states that Edema in BLLE is normal for her. Pt is on Monitor and waiting to go to Ultrasound when it is available. Daughter and fiancee have alternated being at bedside. Room has been darkened to allow some rest.
[2021-05-13 08:24] LABS: COVID-19 PCR Negative (Negative)
--- NOTE | 2021-05-13 09:30 | HPE_ITS ---
Date of service: 05/13/21 Time of Service: 09:30 Assessment and Plan Assessment and plan (1) Gallstones: Status: Acute (2) Gallstone pancreatitis: Status: Acute Assessment and plan: pepcid hydration pain management MRCP- neg for choledocholiasis supportive care for pancreatitis repeat labs in am lap rochelle in 2-3 wks time (3) Hypokalemia: Status: Acute (4) Acute cholecystitis: Status: Acute (5) Acute pancreatitis: Status: Acute Assessment and plan: ? (6) Former smoker: Status: Acute History of Present Illness Consults Consult date: 05/13/21 Narrative: from ED: 50-year-old female presents from home.? States she was awakened early this morning with epigastric pain that is sharp and constant.? One episode of emesis and some nausea.? No fever or chills.? She has had an appendectomy and previous C-sections. Patient states she woke up with severe epigastric pain that radiated straight into her back. It was associated with nausea and vomiting. Patient has never had anything like this before. Prior to this episode she has been having mild episodes of right upper quadrant pain associated with eating. They have been very mild and far in between and only lasted a few minutes. This attack was much more severe and was unrelenting and associated with nausea and vomiting. There is a family history of gallbladder disease. She does have children. Patient takes Humira every 2 weeks for eczema. She is no longer on Depakote. She has had no problems with anesthesia in the past. She has no cardiopulmonary problems. MPRESSION: 1. Cholelithiasis.? No biliary ductal dilatation or choledocholithiasis.? Mild pericholecystic fluid. 2. Mild edema seen in the pancreatic head with a small amount of fluid around the pancreatic head and proximal body.? The findings raise a question of acute pancreatitis.? No focal fluid collection is seen to suggest abscess or pseudocyst. 3. Hepatomegaly Review of Systems All systems reviewed & are unremarkable except as noted in HPI and below PFSH All Active Problems Former smoker (Acute) Gallstone pancreatitis (Acute) Gallstones (Acute) COVID-19 (Acute) Hypokalemia (Acute) Acute cholecystitis (Acute) Acute pancreatitis (Acute) Social History Smoking/Tobacco Use Status: Former Tobacco Use Smoking risk assessment performed?: Yes Drug use: Never Substance use type: does not use Do you feel safe in your relationship?: Yes Meds Allergies and Home Medications Allergies Allergy/AdvReac Type Severity Reaction Status Date / Time lactose Allergy Mild Unverified 05/13/21 03:27 Penicillins Allergy Unknown Unverified 05/13/21 03:27 Home Medications Medication Instructions Recorded Confirmed Type lisinopril 10 mg tablet 10 mg PO HS 06/28/19 05/13/21 History adalimumab 40 mg/0.4 mL 40 mg SUBCUT Q2W 05/13/21 05/13/21 History subcutaneous pen kit (Humira(CF) Pen) amitriptyline 10 mg tablet 20 mg PO HS 05/13/21 05/13/21 History benzonatate 100 mg capsule 100 mg PO TID PRN 05/13/21 05/13/21 History hydrochlorothiazide 25 mg tablet 25 mg PO DAILY 05/13/21 05/13/21 History Exam Narrative Exam Narrative: PHYSICAL EXAM GENERAL APPEARANCE: Alert, healthy appearance, oriented, in no acute distress SKIN: No rashes.? No breakdown HYDRATION: Well hydrated HEAD, EYES, EARS, NECK, THROAT: Head is normocephalic, pupils equal, round, reactive to light and accommodation, ocular movement intact, sclera clear and no jaundice. ?Dentition intact. No sore throat.? No jaw pain. No thrush NECK: Supple, Trachea midline. No JVD. LUNGS: normal respiration/nl chest excursion. ?Clear to auscultation B/l no R/R/W ?HEART: Regular rate and rhythm, EXTREMITY: No edema or cyanosis? no leg pain, redness, swelling.? No IV infi ltration ABDOMEN: tender in epigastric procedure. mild distention hypoactive BS. prior C section. post surgical noted. NEURO: no focal neuro deficits. ? Results Labs Result diagrams: 05/13/21 03:37 05/13/21 03:37 Labs: Laboratory Results - last 24 hr 05/13/21 05/13/21 05/13/21 03:37 03:37 04:05 WBC 12.40 H RBC 4.51 Hgb 14.4 Hct 42.3 MCV 93.8 MCH 31.9 MCHC 34.0 RDW 13.8 Plt Count 407 H MPV 9.0 Immature Gran % 0.2 Neutrophils % 75.7 Lymphocytes % 16.1 Monocytes % 7.3 Eosinophils % 0.3 Basophils % 0.4 Nucleated RBC % 0 Absolute Neutrophils 9.39 H Absolute Lymphocytes 2.00 Absolute Monocytes 0.91 H Absolute Eosinophils 0.04 Absolute Basophils 0.05 Sodium 133 L Potassium 3.1 L Chloride 93 L Carbon Dioxide 27.2 Anion Gap 12.8 H BUN 19 H Creatinine 0.9 Estimated GFR/1.73 m2 >= 60.00 Glucose 279 H Calcium 9.2 Magnesium 2.0 Total Bilirubin 2.9 H AST 177 H ALT 121 H Alkaline Phosphatase 94 Total Protein 8.3 H Albumin 4.6 Lipase 67898 H Urine Color Yellow Urine Clarity Clear Urine pH 6.5 Ur Specific [place] 1.020 Urine Protein Trace H Urine Ketones 40 H Urine Blood Small H Urine Nitrite Negative Urine Bilirubin Negative Urine Urobilinogen 2.0 H Ur Leukocyte Esterase Trace H Urine RBC 5-10 H Urine WBC 10-20 H Ur Epithelial Cells Few Urine Crystals Negative Urine Bacteria Few Urine Casts Negative Urine Mucus Negative Urine Other Rare Trichomonas Ur Culture Indicated? Yes Urine Glucose 100 COVID-19 Source SARS-CoV-2 (PCR) 05/13/21 07:35 WBC RBC Hgb Hct MCV MCH MCHC RDW Plt Count MPV Immature Gran % Neutrophils % Lymphocytes % Monocytes % Eosinophils % Basophils % Nucleated RBC % Absolute Neutrophils Absolute Lymphocytes Absolute Monocytes Absolute Eosinophils Absolute Basophils Sodium Potassium Chloride Carbon Dioxide Anion Gap BUN Creatinine Estimated GFR/1.73 m2 Glucose Calcium Magnesium Total Bilirubin AST ALT Alkaline Phosphatase Total Protein Albumin Lipase Urine Color Urine Clarity Urine pH Ur Specific [place] Urine Protein Urine Ketones Urine Blood Urine Nitrite Urine Bilirubin Urine Urobilinogen Ur Leukocyte Esterase Urine RBC Urine WBC Ur Epithelial Cells Urine Crystals Urine Bacteria Urine Casts Urine Mucus Urine Other Ur Culture Indicated? Urine Glucose COVID-19 Source Nasal/Nares SARS-CoV-2 (PCR) Negative Last Vital Signs Temp 36.3 C L 05/13/21 03:22 Pulse 99 H 05/13/21 08:01 Resp 14 05/13/21 08:01 BP 122/81 05/13/21 08:01 Pulse Ox 97 05/13/21 08:01
--- NOTE | 2021-05-13 10:28 | ED.PROG_ITS ---
Date of service: 05/13/21 Time of Service: 10:30 Medical Decision Making Care signed out by Dr. Grant, please see his documentation regarding initial ED presentation course. Plan at signout was to follow-up on right upper quadrant abdominal ultrasound and reassess patient for disposition. Right upper quadrant ultrasound was reviewed and interpreted by radiology: Cholelithiasis is present, no gallbladder wall thickening, no choledocholithiasis. Patient was reassessed and continues to have discomfort. Labs are reviewed and elevated lipase concerning for acute pancreatitis likely related to passed gallstone. I called and spoke with Dr. Gama and discussed ED presentation and course including CT findings, ultrasound findings and labs. She will admit the patient. Care transition to Dr. Allen at time of admission Lab Data Lab results reviewed: Yes I reviewed the patient's lab results. Labs: 05/13/21 04:05 Urine - Reflex from Ua Urine Culture - Pending Laboratory Tests Range/Units 05/13/21 05/13/21 05/13/21 03:37 03:37 04:05 WBC (4.4-10.8) 10^3/uL 12.40 H RBC (3.93-5.22) 10^6/uL 4.51 Hgb (11.2-15.7) g/dL 14.4 Hct (36.0-46.0) % 42.3 MCV (80-95) fL 93.8 MCH (27.0-33.0) pg 31.9 MCHC (32.0-36.0) % 34.0 RDW (11.7-14.6) % 13.8 Plt Count (130-400) 10^3/uL 407 H MPV (8.0-11.0) fL 9.0 Immature Gran % 0.2 Neutrophils % 75.7 Lymphocytes % 16.1 Monocytes % 7.3 Eosinophils % 0.3 Basophils % 0.4 Nucleated RBC % % 0 Absolute Neutrophils (1.2-6.7) 10^3/uL 9.39 H Absolute Lymphocytes (1.2-3.4) 10^3/uL 2.00 Absolute Monocytes (0.1-0.8) 10^3/uL 0.91 H Absolute Eosinophils (0.0-0.7) 10^3/uL 0.04 Absolute Basophils (0.0-0.2) 10^3/uL 0.05 Sodium (136-145) mmol/L 133 L Potassium (3.5-5.1) mmol/L 3.1 L Chloride (98-107) mmol/L 93 L Carbon Dioxide (21.0-32.0) mmol/L 27.2 Anion Gap (3-11) mmol/L 12.8 H BUN (7-18) mg/dL 19 H Creatinine (0.55-1.02) mg/dL 0.9 Estimated GFR/1.73 m2 (mL/min/1.73m2) >= 60.00 Glucose (74-106) mg/dL 279 H Calcium (8.5-10.1) mg/dL 9.2 Magnesium (1.8-2.4) mg/dL 2.0 Total Bilirubin (0.2-1.0) mg/dL 2.9 H AST (15-37) U/L 177 H ALT (14-59) U/L 121 H Alkaline Phosphatase (46-116) U/L 94 Total Protein (6.4-8.2) g/dL 8.3 H Albumin (3.4-5.0) g/dL 4.6 Lipase (73-393) U/L 47669 H Urine Color (Yellow) Yellow Urine Clarity (Clear) Clear Urine pH (5-8) 6.5 Ur Specific [place] (1.005-1.025) 1.020 Urine Protein (Negative) mg/dL Trace H Urine Ketones (Negative) mg/dL 40 H Urine Blood (Negative) Small H Urine Nitrite (Negative) Negative Urine Bilirubin (Negative) Negative Urine Urobilinogen (Up TO 0.2) EU/dL 2.0 H Ur Leukocyte Esterase (Negative) Trace H Urine RBC (0-2) HPF 5-10 H Urine WBC (0-5) HPF 10-20 H Ur Epithelial Cells (Negative) HPF Few Urine Crystals (Negative) HPF Negative Urine Bacteria (Negative) HPF Few Urine Casts (Negative) LPF Negative Urine Mucus (Negative) Negative Urine Other (Negative) Rare Trichomonas Ur Culture Indicated? Yes Urine Glucose (Negative) mg/dL 100 COVID-19 Source SARS-CoV-2 (PCR) (Negative) Range/Units 05/13/21 07:35 WBC (4.4-10.8) 10^3/uL RBC (3.93-5.22) 10^6/uL Hgb (11.2-15.7) g/dL Hct (36.0-46.0) % MCV (80-95) fL MCH (27.0-33.0) pg MCHC (32.0-36.0) % RDW (11.7-14.6) % Plt Count (130-400) 10^3/uL MPV (8.0-11.0) fL Immature Gran % Neutrophils % Lymphocytes % Monocytes % Eosinophils % Basophils % Nucleated RBC % % Absolute Neutrophils (1.2-6.7) 10^3/uL Absolute Lymphocytes (1.2-3.4) 10^3/uL Absolute Monocytes (0.1-0.8) 10^3/uL Absolute Eosinophils (0.0-0.7) 10^3/uL Absolute Basophils (0.0-0.2) 10^3/uL Sodium (136-145) mmol/L Potassium (3.5-5.1) mmol/L Chloride (98-107) mmol/L Carbon Dioxide (21.0-32.0) mmol/L Anion Gap (3-11) mmol/L BUN (7-18) mg/dL Creatinine (0.55-1.02) mg/dL Estimated GFR/1.73 m2 (mL/min/1.73m2) Glucose (74-106) mg/dL Calcium (8.5-10.1) mg/dL Magnesium (1.8-2.4) mg/dL Total Bilirubin (0.2-1.0) mg/dL AST (15-37) U/L ALT (14-59) U/L Alkaline Phosphatase (46-116) U/L Total Protein (6.4-8.2) g/dL Albumin (3.4-5.0) g/dL Lipase (73-393) U/L Urine Color (Yellow) Urine Clarity (Clear) Urine pH (5-8) Ur Specific [place] (1.005-1.025) Urine Protein (Negative) mg/dL Urine Ketones (Negative) mg/dL Urine Blood (Negative) Urine Nitrite (Negative) Urine Bilirubin (Negative) Urine Urobilinogen (Up TO 0.2) EU/dL Ur Leukocyte Esterase (Negative) Urine RBC (0-2) HPF Urine WBC (0-5) HPF Ur Epithelial Cells (Negative) HPF Urine Crystals (Negative) HPF Urine Bacteria (Negative) HPF Urine Casts (Negative) LPF Urine Mucus (Negative) Urine Other (Negative) Ur Culture Indicated? Urine Glucose (Negative) mg/dL COVID-19 Source Nasal/Nares SARS-CoV-2 (PCR) (Negative) Negative Sign Out Sign Out Data: Sign Out Comment: Followup US Last updated by Ronak Grant MD at 05/13/21 07:31 Discharge Plan Disposition Patient Disposition: [facility] INPATIENT Condition: Serious Discharge Details Clinical Impression: Acute cholecystitis, Acute pancreatitis Primary Care Provider: Riri Awad ED Provider: Manjeet Maloney Home Meds and New Rx's Prescriptions: No Action amitriptyline 10 mg tablet 20 mg PO HS 0RF Label Comments: TAKE 2 TABLETS BY MOUTH EVERY NIGHT hydrochlorothiazide 25 mg tablet 25 mg PO DAILY 0RF benzonatate 100 mg capsule 100 mg PO TID PRN (Reason: Cough) 0RF Humira(CF) Pen 40 mg/0.4 mL pen injector kit 40 mg SUBCUT Q2W 0RF lisinopril 10 mg Tablet 10 mg PO HS 0RF
[2021-05-13] MEDS: Lactated Ringers 1,000 ML 125 ML IV (10:53)
[2021-05-13] MEDS: MORPHine 4 MG/ML SYR 2 MG IVP ×3 (11:04→15:35)
[2021-05-13] MEDS: ACETAMINOPHEN 1,000 MG/100 ML BTL 400 MG IVPB ×2 (11:36→17:30)
[2021-05-13] MEDS: FAMOTIDINE 20 MG in Normal Saline 100 ML 400 MG IVPB (11:51)
[2021-05-13] MEDS: HYDROmorphone 2 MG/ML SYR 0.5 MG IVP ×2 (18:06→22:11)
[2021-05-13] MEDS: Lisinopril 10 MG TAB PO (22:10)
[2021-05-14] MEDS: HYDROmorphone 2 MG/ML SYR 0.5 MG IVP ×3 (03:07→22:10)
[2021-05-14] MEDS: MORPHine 4 MG/ML SYR 2 MG IVP ×4 (03:58→14:39)
[2021-05-14] MEDS: ACETAMINOPHEN 1,000 MG/100 ML BTL 400 MG IVPB (04:01)
[2021-05-14] MEDS: Lactated Ringers 1,000 ML 125 ML IV (06:15)
[2021-05-14 06:59] LABS: Abs Immature Grans 0.03 10^3/uL (0.0-0.06); Absolute Basophil Count 0.03 10^3/uL (0.0-0.2); Absolute Eosinophil Count 0.06 10^3/uL (0.0-0.7); Absolute Lymphocyte Count 1.88 10^3/uL (1.2-3.4); Absolute Monocyte Count 0.55 10^3/uL (0.1-0.8); Basophils % 0.4; Eosinophils % 0.7; HCT 36.1 % (36.0-46.0); Immature Grans % 0.4; Lymphocytes % 23.2; MCH 32.1 pg (27.0-33.0); MCV 97.3 fL (80-95); MPV 8.9 fL (8.0-11.0); Monocytes % 6.8; Neutrophils % 68.5; Nucleated RBC 0 %; Platelet Count 245 10^3/uL (130-400); RBC 3.71 10^6/uL (3.93-5.22); RDW 14.4 % (11.7-14.6); RDW-SD 51.8 fL; WBC 8.12 10^3/uL (4.4-10.8)
[2021-05-14 07:02] LABS: Absolute Neutrophil Count 5.56 10^3/uL (1.2-6.7)
[2021-05-14 07:04] LABS: HGB 11.9 g/dL (11.2-15.7)
[2021-05-14 07:25] VITALS: BP 110/75; PULSE 97; RESP 14; TEMP 36.4; O2SAT 92
[2021-05-14 07:25] LABS: ALT 99 U/L (14-59); AST 63 U/L (15-37); Albumin 3.6 g/dL (3.4-5.0); Alkaline Phosphatase 71 U/L (46-116); Anion Gap 4.3 mmol/L (3-11); BUN 10 mg/dL (7-18); Bilirubin, Total 0.9 mg/dL (0.2-1.0); CO2 31.7 mmol/L (21.0-32.0); CREATININE 0.8 mg/dL (0.55-1.02); Calcium 8.4 mg/dL (8.5-10.1); Chloride 102 mmol/L (98-107); Glucose 143 mg/dL (74-106); Lipase 931 U/L (73-393); Potassium 3.3 mmol/L (3.5-5.1); Sodium 138 mmol/L (136-145); Total Protein 6.6 g/dL (6.4-8.2)
[2021-05-14] MEDS: Acetaminophen 500 MG TAB 1000 MG PO ×2 (09:14→22:08)
[2021-05-14] MEDS: Normal Saline Flush 10 ML SYR IVP ×4 (09:15→18:45)
--- NOTE | 2021-05-14 10:44 | PDOC.CMIN ---
- If Service Date Differs Date of service: 05/14/21 Time of Service: 10:44 Care Management Initial Assess REASON FOR HOSPITALIZATION:: Gallstones, Pancreatitis/Choledochlithiasis PAST MEDICAL HISTORY/PAST SURGICAL HISTORY:: Former smoker (Acute). Gallstone pancreatitis (Acute). Gallstones (Acute). COVID-19 (Acute). Hypokalemia (Acute). Acute cholecystitis (Acute). Acute pancreatitis (Acute) PREVIOUS FUNCTIONAL STATUS/SOCIAL/FAMILY SUPPORTS:: Resides in [place], SO resides in [place]. Sloane is independent at baseline in the community. CURRENT FUNCTIONAL STATUS:: Sloane slept throughout the day, waking in pain; per caterpillar tractor operator. CM continues to follow. ADVANCE DIRECTIVES:: None on file at [facility]. Has patient been provided with info about the portal/API?: Yes Did the patient sign up for the portal?: No CODE STATUS:: Full Code INSURANCE COVERAGE / FINANCIAL ISSUES:: Medicaid CURRENT HOME/COMMUNITY SERVICES/EQUIPMENT:: None, currently. PRIMARY CARE PHYSICIAN:: Riri Awad POTENTIAL DISCHARGE NEEDS:: Follow up appointments. PATIENT/FAMILY EDUCATION NEEDS:: Review discharge instructions, discuss Ask Me Three. ANTICIPATED BARRIERS TO DISCHARGE:: None identified at this time. TRANSPORTATION:: Via private vehicle with family. PLAN:: Sloane continues to be closely monitored and treated. CM continues to follow. Anticipate she will return home when ready, follow up with her community providers and transport via private vehicle with family.
[2021-05-14] MEDS: Enoxaparin 40 MG/0.4 ML SYR SC (11:37)
--- NOTE | 2021-05-14 13:28 | W.PM.PROGNOT ---
Date of Service Date of service: 05/15/21 Time of Service: 10:36 Assessment and Plan Assessment and plan (1) Gallstone pancreatitis: Status: Acute Assessment and plan: -Clinically improving, less pain today, lipase normal -Advance to regular low fat diet, DC IV fluids -PRN Miralax added, patient had 2 BMs after 1 dose -Repeat labs in AM -Possible DC home in am for outpatient follow up in 1-2 weeks with cholecystectomy in 2-3 weeks (2) Gallstones: Status: Acute Subjective Subjective Patient reports: no new complaints, feels better, pain is less and bowel movement; denies nausea or vomiting Exam Const General: cooperative, healthy appearing, comfortable and no acute distress Nutritional Appearance: average body habitus and well nourished Eyes General: appearance normal, both eyes and all related structures Conjunctivae: conjunctivae normal Sclera: sclerae normal Resp Effort & Inspection: normal respiratory effort, able to speak in complete sentences, no audible wheezes and not labored Cardio Rate: regular rate and tachycardic (intermittent) Rhythm: regular rhythm GI Inspection: normal to inspection and non-distended Palpation: soft, no guarding and nontender Percussion: normal to percussion Neuro General: patient alert, patient awake and patient oriented x3 Objective Last Vital Signs Temp 97.5 F L 05/14/21 07:25 Pulse 97 H 05/14/21 07:25 Resp 14 05/14/21 07:25 BP 110/75 05/14/21 07:25 Pulse Ox 92 05/14/21 07:25 Laboratory Results - last 24 hr 05/14/21 05/14/21 06:10 06:10 WBC 8.12 D RBC 3.71 L Hgb 11.9 D Hct 36.1 MCV 97.3 H MCH 32.1 MCHC 33.0 RDW 14.4 Plt Count 245 D MPV 8.9 Immature Gran % 0.4 Neutrophils % 68.5 Lymphocytes % 23.2 Monocytes % 6.8 Eosinophils % 0.7 Basophils % 0.4 Nucleated RBC % 0 Absolute Neutrophils 5.56 Absolute Lymphocytes 1.88 Absolute Monocytes 0.55 Absolute Eosinophils 0.06 Absolute Basophils 0.03 Sodium 138 Potassium 3.3 L Chloride 102 Carbon Dioxide 31.7 Anion Gap 4.3 BUN 10 D Creatinine 0.8 Estimated GFR/1.73 m2 >= 60.00 Glucose 143 H D Calcium 8.4 L Total Bilirubin 0.9 AST 63 H ALT 99 H Alkaline Phosphatase 71 Total Protein 6.6 Albumin 3.6 Lipase 931 H
--- NOTE | 2021-05-14 14:11 | W.PM.PROGNOT ---
Date of Service Date of service: 05/14/21 Time of Service: 14:11 Assessment and Plan Assessment and plan (1) Gallstone pancreatitis: Status: Acute Assessment and plan: pt still having pain adn nausea. (2) Gallstones: Status: Acute Objective Last Vital Signs Temp 36.4 C L 05/14/21 07:25 Pulse 97 H 05/14/21 07:25 Resp 14 05/14/21 07:25 BP 110/75 05/14/21 07:25 Pulse Ox 92 05/14/21 07:25 Laboratory Results - last 24 hr 05/14/21 05/14/21 06:10 06:10 WBC 8.12 D RBC 3.71 L Hgb 11.9 D Hct 36.1 MCV 97.3 H MCH 32.1 MCHC 33.0 RDW 14.4 Plt Count 245 D MPV 8.9 Immature Gran % 0.4 Neutrophils % 68.5 Lymphocytes % 23.2 Monocytes % 6.8 Eosinophils % 0.7 Basophils % 0.4 Nucleated RBC % 0 Absolute Neutrophils 5.56 Absolute Lymphocytes 1.88 Absolute Monocytes 0.55 Absolute Eosinophils 0.06 Absolute Basophils 0.03 Sodium 138 Potassium 3.3 L Chloride 102 Carbon Dioxide 31.7 Anion Gap 4.3 BUN 10 D Creatinine 0.8 Estimated GFR/1.73 m2 >= 60.00 Glucose 143 H D Calcium 8.4 L Total Bilirubin 0.9 AST 63 H ALT 99 H Alkaline Phosphatase 71 Total Protein 6.6 Albumin 3.6 Lipase 931 H
--- NOTE | 2021-05-14 15:04 | PDOC.CMIN ---
- If Service Date Differs Date of service: 05/14/21 Time of Service: 15:04 Care Management Initial Assess REASON FOR HOSPITALIZATION:: Gallstones Pancreatitis/Choledochlithiasis
[2021-05-14 15:23] VITALS: BP 119/78; PULSE 106; RESP 16; TEMP 37.5; O2SAT 94
--- NOTE | 2021-05-14 16:06 | CHAPLAIN ---
Sloane did not appear to be very comfortable when I stopped in. She was in bed and her nurse, RAINA Mejia, was getting ready to give her medication for her gallstones and pancreatitis. I will attempt to follow up another time.
[2021-05-14] MEDS: Lisinopril 10 MG TAB PO (22:07)
[2021-05-14 23:50] VITALS: BP 110/72; PULSE 99; RESP 16; TEMP 36.3; O2SAT 92
[2021-05-15] MEDS: Lactated Ringers 1,000 ML 100 ML IV ×2 (01:43→13:13)
[2021-05-15] MEDS: HYDROmorphone 2 MG/ML SYR 0.5 MG IVP ×3 (01:53→07:52)
[2021-05-15 07:50] LABS: Abs Immature Grans 0.02 10^3/uL (0.0-0.06); Absolute Basophil Count 0.03 10^3/uL (0.0-0.2); Absolute Lymphocyte Count 1.85 10^3/uL (1.2-3.4); Absolute Monocyte Count 0.57 10^3/uL (0.1-0.8); Absolute Neutrophil Count 4.07 10^3/uL (1.2-6.7); Basophils % 0.5; Eosinophils % 1.5; HCT 33.8 % (36.0-46.0); Immature Grans % 0.3; Lymphocytes % 27.9; MCH 32.2 pg (27.0-33.0); MCHC 32.5 % (32.0-36.0); MCV 98.8 fL (80-95); MPV 8.7 fL (8.0-11.0); Monocytes % 8.6; Neutrophils % 61.2; Nucleated RBC 0 %; Platelet Count 210 10^3/uL (130-400); RBC 3.42 10^6/uL (3.93-5.22); RDW 14.1 % (11.7-14.6); RDW-SD 50.9 fL; WBC 6.64 10^3/uL (4.4-10.8)
[2021-05-15] MEDS: Normal Saline Flush 10 ML SYR IVP (07:53)
[2021-05-15 08:08] LABS: ALT 62 U/L (14-59); AST 30 U/L (15-37); Albumin 3.3 g/dL (3.4-5.0); Alkaline Phosphatase 68 U/L (46-116); Bilirubin, Direct 0.2 mg/dL (0.0-0.2); Bilirubin, Total 0.8 mg/dL (0.2-1.0); Total Protein 6.5 g/dL (6.4-8.2)
[2021-05-15 08:11] LABS: ALT 65 U/L (14-59); AST 30 U/L (15-37); Albumin 3.3 g/dL (3.4-5.0); Alkaline Phosphatase 67 U/L (46-116); Anion Gap 7.6 mmol/L (3-11); BUN 7 mg/dL (7-18); Bilirubin, Total 0.8 mg/dL (0.2-1.0); CO2 28.4 mmol/L (21.0-32.0); CREATININE 0.5 mg/dL (0.55-1.02); Calcium 8.3 mg/dL (8.5-10.1); Chloride 105 mmol/L (98-107); Glucose 132 mg/dL (74-106); Lipase 158 U/L (73-393); Magnesium 2.3 mg/dL (1.8-2.4); Potassium 3.2 mmol/L (3.5-5.1); Sodium 141 mmol/L (136-145); Total Protein 6.5 g/dL (6.4-8.2)
[2021-05-15 09:06] VITALS: BP 136/87; PULSE 98; RESP 20; TEMP 36.6; O2SAT 96
[2021-05-15] MEDS: Potassium Chloride Liquid 20 MEQ PKT 40 MEQ PO (11:01)
[2021-05-15] MEDS: Acetaminophen 500 MG TAB 1000 MG PO ×2 (11:02→22:07)
[2021-05-15] MEDS: Polyethylene Glycol 3350 17 GM PACKET PO (11:48)
[2021-05-15] MEDS: Enoxaparin 40 MG/0.4 ML SYR SC (11:48)
[2021-05-15] MEDS: Lisinopril 10 MG TAB PO (21:58)
[2021-05-16] MEDS: Acetaminophen 500 MG TAB 1000 MG PO ×2 (05:10→14:25)
[2021-05-16 07:22] LABS: ALT 56 U/L (14-59); AST 27 U/L (15-37); Albumin 3.4 g/dL (3.4-5.0); Alkaline Phosphatase 69 U/L (46-116); Anion Gap 7.8 mmol/L (3-11); BUN 6 mg/dL (7-18); Bilirubin, Total 0.6 mg/dL (0.2-1.0); CO2 27.2 mmol/L (21.0-32.0); CREATININE 0.6 mg/dL (0.55-1.02); Calcium 8.4 mg/dL (8.5-10.1); Chloride 106 mmol/L (98-107); Glucose 141 mg/dL (74-106); Lipase 128 U/L (73-393); Magnesium 2.3 mg/dL (1.8-2.4); Potassium 3.6 mmol/L (3.5-5.1); Sodium 141 mmol/L (136-145); Total Protein 6.9 g/dL (6.4-8.2)
[2021-05-16 07:40] VITALS: BP 135/86; PULSE 86; RESP 18; TEMP 36.2; O2SAT 97
--- NOTE | 2021-05-16 15:32 | CMDISCH_ITS ---
- If Service Date Differs Date of service: 05/16/21 Time of Service: 15:32 LACE Index Scoring Tool - Questions: Length of Stay (in days): 3 Acuity (Admit via E.D.?): Yes E.D. Visits: 2 - Answers: Total Score: 8 Risk of Readmission: Low Risk Care Management Discharge Reason for Hospitalization: Gallstones, Pancreatitis/Choledochlithiasis Discharge Plan: Sloane will return home when ready, follow up with her community providers and plan of care as prescribed; per MD outpatient cholecystectomy planned in 2-3 weeks. Sloane will transport via private vehicle with family. Patient/Family Education Needs: Review discharge instructions, discuss Ask Me T hree.
[2021-05-16 15:50] VITALS: BP 148/86; PULSE 91; RESP 18; TEMP 36.4; O2SAT 96
--- NOTE | 2021-05-16 16:24 | W.PM.DS.N ---
Date of service: 05/16/21 Time of Service: 16:24 DS: Diagnosis Discharge Diagnosis (1) Gallstone pancreatitis: Status: Acute Asessment and Plan: -Resolved, will follow up outpatient to schedule laparoscopic cholecystectomy -Tylenol and Motrin OTC for pain control, patient to call if pain is not controlled with these medications (2) Gallstones: Status: Acute Discharge Plan Disposition Patient Disposition: HOME Condition: Stable Discharge Details Reason For Visit: Gallstones Pancreatitis/Choledochlithiasis Admit Date/Time: 05/13/21 09:21 Admit Provider: Marce Allen Attending Provider: Marce Allen Primary Care Provider: Riri Awad Hospital Course Hospital Course: Patient was admitted to the hospital after being found to have gallstone pancreatitis without evidence of biliary obstruction. She was treated with IV fluids and IV pain medications until she was able to tolerate PO intake. Lipase trended down to normal levels for >24hrs and patient is tolerating PO diet and medications. She will be discharged home to make follow up arrangements for cholecystectomy. Home Meds and New Rx's Prescriptions: Continued amitriptyline 10 mg tablet 20 mg PO HS 0RF Label Comments: TAKE 2 TABLETS BY MOUTH EVERY NIGHT hydrochlorothiazide 25 mg tablet 25 mg PO DAILY 0RF benzonatate 100 mg capsule 100 mg PO TID PRN (Reason: Cough) 0RF Humira(CF) Pen 40 mg/0.4 mL pen injector kit 40 mg SUBCUT Q2W 0RF lisinopril 10 mg Tablet 10 mg PO HS 0RF Discharge Instructions Instructions: Pancreatitis (DC), Diet for Stomach Ulcers and Gastritis (GEN) Referrals: Fawn Basilio MD [ [facility] STAFF PHYSICIAN] - Activity:: Activity as Tolerated Equipment/Supplies:: No Equipment Needed Diet:: low fat Discharge Orders Discharge Orders: Discharge Order (Routine); Ordered 05/16/21 Ordered By: Connie Rocha DS: Summary Time Spent with Patient providing and/or coordinating discharge services: Less than 30 minutes Status at Discharge Functional status at discharge: independent ambulation Overall status at discharge: patient is progressing back to baseline Mental Status: mental status grossly normal Speech and Movement: speech and movement normal Mood: congruent mood Affect: normal affect Exam Const General: cooperative, healthy appearing, comfortable and no acute distress Nutritional Appearance: average body habitus and well nourished Eyes General: appearance normal, both eyes and all related structures Conjunctivae: conjunctivae normal Sclera: sclerae normal Resp Effort & Inspection: normal respiratory effort, able to speak in complete sentences, no audible wheezes and not labored Cardio Rate: regular rate and tachycardic (intermittent) Rhythm: regular rhythm GI Inspection: normal to inspection and non-distended Palpation: soft, no guarding and nontender Percussion: normal to percussion Neuro General: patient alert, patient awake and patient oriented x3 Psych Mental Status: mental status grossly normal Speech and Movement: speech and movement normal Mood: congruent mood Affect: normal affect DS: Data Vitals/I&O Vitals and I&O: Vital Signs Temperature 97.5 F L 05/16/21 15:50 Temperature Source Tympanic 05/16/21 15:50 Pulse 91 H 05/16/21 15:50 Pulse Rhythm Regular 05/16/21 11:07 Pulse 107 H 05/13/21 12:31 Respiratory Rate 18 05/16/21 15:50 Respiratory Effort 05/16/21 11:07 Respiratory Depth Normal 05/16/21 11:07 Respiratory Pattern Normal 05/16/21 11:07 Blood Pressure 148/86 H 05/16/21 15:50 Blood Pressure Mean 97 05/13/21 12:30 Blood Pressure Position Supine 05/13/21 03:22 Pulse Oximetry 96 05/16/21 15:50 Oxygen Delivery Method Room Air 05/16/21 15:50 Oxygen Flow Rate 0 05/16/21 15:50 Pain Level 3 05/16/21 14:25 Intake & Output 05/15/21 05/16/21 05/16/21 23:59 11:59 23:59 Intake Total 760 / 2364 2822 / 3284 462 / 3284 Output Total 500 / 1650 500 / 1000 500 / 1000 Balance 260 / 714 2322 / 2284 -38 / 2284 Intake: IV 2102 / 2204 102 / 2204 Oral 760 / 1160 720 / 1080 360 / 1080 Output: Urine 500 / 1650 500 / 1000 500 / 1000 Other: Urine Color Yellow Urine Appearance Clear Clear Clear Stool Size Large Large Stool Characteristics Soft Soft Voiding Methods Toilet Toilet Data Completed and Pending Labs on day of discharge: Labs from last 24 hours 05/16/21 06:30 Sodium 141 Potassium 3.6 Chloride 106 Carbon Dioxide 27.2 Anion Gap 7.8 BUN 6 L Creatinine 0.6 Estimated GFR/1.73 m2 >= 60.00 Glucose 141 H Calcium 8.4 L Magnesium 2.3 Total Bilirubin 0.6 AST 27 ALT 56 Alkaline Phosphatase 69 Total Protein 6.9 Albumin 3.4 Lipase 128 PFSH All Active Problems Former smoker (Acute) Gallstone pancreatitis (Acute) Gallstones (Acute) COVID-19 (Acute) Hypokalemia (Acute) Acute cholecystitis (Acute) Acute pancreatitis (Acute) Social History Smoking/Tobacco Use Status: Former Tobacco Use Smoking risk assessment performed?: Yes Drug use: Never Substance use type: does not use Do you feel safe in your relationship?: Yes
--- NOTE | 2021-05-21 10:49 | W.PM.PROGNOT ---
Date of Service Date of service: 05/15/21 Time of Service: 13:30 Assessment and Plan Assessment and plan (1) Gallstone pancreatitis: Status: Resolved Assessment and plan: -Clinically improving, less pain today, lipase trending down -Advance to liquid diet -Repeat labs in AM (2) Gallstones: Status: Acute Exam Const General: cooperative, healthy appearing, comfortable and no acute distress Nutritional Appearance: average body habitus and well nourished Eyes General: appearance normal, both eyes and all related structures Conjunctivae: conjunctivae normal Sclera: sclerae normal Resp Effort & Inspection: normal respiratory effort, able to speak in complete sentences, no audible wheezes and not labored Cardio Rate: regular rate and tachycardic (intermittent) Rhythm: regular rhythm GI Inspection: normal to inspection and non-distended Palpation: soft, no guarding and nontender Percussion: normal to percussion Neuro General: patient alert, patient awake and patient oriented x3 Psych Mental Status: mental status grossly normal Speech and Movement: speech and movement normal Mood: congruent mood Affect: normal affect Objective Last Vital Signs Temp 97.5 F L 05/16/21 15:50 Pulse 91 H 05/16/21 15:50 Resp 18 05/16/21 15:50 BP 148/86 H 05/16/21 15:50 Pulse Ox 96 05/16/21 15:50
== END 2021-05-16 17:33 | disposition home or self-care (01) | DRG 439 ==
LOC: ER 10:31 → MS 13:04
PROVIDERS: Emergency Medicine; Surgery; Admitting Provider Surgery; Emergency Provider Student in an Organized Health Care Education/Training Program; PCP Physician Assistant Medical; Visit Provider Surgery
DX: K85.10 Biliary acute pancreatitis without necrosis or infection (principal); K80.00 Calculus of gallbladder with acute cholecystitis without obstruction; E87.6 Hypokalemia; R16.0 Hepatomegaly, not elsewhere classified; Z87.891 Personal history of nicotine dependence; Z86.16 Personal history of COVID-19
CPT/HCPCS: 36415; 80053; 80076; 81025; 83690; 87635; 96361; 96365; 96366; 96367; 96375; 96376; 99284; 99285; J1650; 74177; 74181; 76705; 81003; 81015; 83735; 85025; 87086; J0131; J1170; J2270; J2405; J3490

== ENCOUNTER 2021-05-19 14:42 | Outpatient (REF) | payer MEDICAID, SELFPAY ==
--- OUTSIDE RECORDS SUMMARY | 2021-05-19 14:43 | XMS_ITS | Encounter Summary ---
:1970 Author Organization [facility] Address [address] [place] [address] Care Team Providers Name Role Phone Nathan, Primary Care Provider Encounter Details Date Type Department Care Team Description 08/16/2006 Results Only [facility] - Brenda Grant MD [facility] [address] [facility] [address] [place], [place] [id number] [place] [address] [phone] (Wo rk) Social History Tobacco Use Types Packs/Day Years Used Date Never Assessed Sex Assigned at Date Recorded Not on file documented as of this encounter Plan of Treatment Not on filedocumented as of this encounter Procedures Procedure Name Priority Date/Time Associated Diagnosis Comme nts CYTOPATHOLOGY Routine 08/16/2006 0:00 EDT Result s for this procedure are i n the results section . documented in this encounter Results CYTOPATHOLOGY (08/16/2006 0:00 EDT) Pathology Report: CYTOPATHOLOGY REPORT [facility] Reports generated via electronic interface contain shereen ginal data; however they are lacking the format of the original re port. Caution should be taken when reading/interpreting unfo rmatted reports. Name: ? SLOANE MARTE ? Accession #: ? [id number] : ? 1970 (Age: 35) ??F ?Collect Date: ? 07/22 Location: ? [facility] ? Receive Date : ? 08/17/2006 Provider: ?BRENDA FRY MD Copy to: ? Specimen/Source: ? ThinPrep Pap Test, Cervix/Endocervix, processed on [employer] ThinPrep Imaging System, with manual evaluation Last Menstrual Period: ? 07/27/06 Other: ? Additional clinical information: last delivery 1 02/25, last pap 05/26 HPVA - HPV testing requested if ASC-US on the current ThinPrep Pap test. ? SPECIMEN ADEQUACY ? Satisfactory for Evaluation - transformation zone component absent GENERAL CATEGORIZATION ? Negative for Intraepithelial Lesion or Malignan cy ? Document reviewed and electronically signed by: ? ROB Greene(ASCP) ? Report Date: ??08/28/2006 14:25 End of Report Specimen Performing Organization Address City/State/ZIP Code Phon e Number [facility] [address] [place] [address] SERVICES [facility] [address] [place] [address] documented in this encounter Visit Diagnoses Not on filedocumented in this encounter Care Teams Circular Shear Operator Relationship Specialty Start Date End Date Unknown, Provider, PCP - General 11/26/08 12/12/12 documented as of this encounter
--- OUTSIDE RECORDS SUMMARY | 2021-05-19 14:43 | XMS_ITS | Encounter Summary ---
:1970 Author Organization [facility] Address [address] [place] [address] Care Team Providers Name Role Phone Nathan, Primary Care Provider Encounter Details Date Type Department Care Team Description 05/24/2005 Results Only [facility] - Katharine Ventura MD conversion [address] [place] [address] [place], [place] [id number] [phone] Social History Tobacco Use Types Packs/Day Years Used Date Never Assessed Sex Assigned at Date Recorded Not on file documented as of this encounter Plan of Treatment Not on filedocumented as of this encounter Procedures Procedure Name Priority Date/Time Associated Diagnosis Comme nts CYTOPATHOLOGY Routine 05/24/2005 0:00 EDT Result s for this procedure are i n the results section . documented in this encounter Results CYTOPATHOLOGY (05/24/2005 0:00 EDT) Pathology Report: CYTOPATHOLOGY REPORT [facility] Reports generated via electronic interface contain shereen ginal data; however they are lacking the format of the original re port. Caution should be taken when reading/interpreting unfo rmatted reports. Name: ? SLOANE MARTE ? Accession #: ? [id number] : ? 1970 (Age: 34) ??F ?Collect Date: ? 04/0 05/2005 Location: ? [facility] ? Receive Date : ? 05/26/2005 Provider: ?KATHARINE ECKERT MD Copy to: ? Specimen/Source: ? ThinPrep Pap Test, Cervix/Endocervix, processed on [employer] ThinPrep Imaging System, with manual evaluation Last Menstrual Period: ? Menstrual/ Status: ? SPECIMEN ADEQUACY ? Satisfactory for Evaluation - transformation zone component absent GENERAL CATEGORIZATION ? Negative for Intraepithelial Lesion or Malignan cy ? Document reviewed and electronically signed by: ? ROB Mendosa(ASCP) ? Report Date: ??05/30/2005 09:12 End of Report Specimen Performing Organization Address City/State/ZIP Code Phon e Number [facility] [address] [place] [address] SERVICES [facility] [address] [place] [address] documented in this encounter Visit Diagnoses Not on filedocumented in this encounter Care Teams Fiberglass Laminator Relationship Specialty Start Date End Date Unknown, Provider, PCP - General 11/26/08 12/12/12 documented as of this encounter
--- OUTSIDE RECORDS SUMMARY | 2021-05-19 14:43 | XMS_ITS | Clinical Summary ---
:1970 Author Organization [facility] Address [address] [place] [address] Care Team Providers Name Role Phone Sheridan Awad PA-C Primary Care Provider Social History Tobacco Use Types Packs/Day Years Used Date Never Assessed Sex Assigned at Date Recorded Not on file Plan of Treatment Health Maintenance Due Date Last Done Comments COVID-19 Vaccine (1) 1984 Insurance Payer Benefit Plan Subscriber ID Effective Phone Address Typ e / Group Dates MEDICAID ACO MEDICAID ACO [id number] 2019-Pres [phone] [address] Medicaid [place] ent [address] [facility] [id number] Care Teams Fire Extinguisher Sprinkler Inspector Relationship Specialty Start Date End Date Riri Awad PA-C PCP - General 12/13/12 [address] [place] [phone]
--- OUTSIDE RECORDS SUMMARY | 2021-05-19 14:43 | XMS_ITS | Encounter Summary ---
:1970 Author Organization [facility] Address [address] [place] [address] Care Team Providers Name Role Phone Unknown, Primary Care Provider Encounter Details Date Type Department Care Team Description 12/11/2012 Hospital Encounter [facility] - S Unknown, Pro Larry felix MD [address] [facility] [phone] [place] [address] (Work) [phone] Social History Tobacco Use Types Packs/Day Years Used Date Never Assessed Sex Assigned at Date Recorded Not on file documented as of this encounter Discharge Disposition Disposition Code Departure Means Destination Home or Self Detention documented in this encounter Plan of Treatment Not on filedocumented as of this encounter Visit Diagnoses Not on filedocumented in this encounter Care Teams Workers Compensation Claims Examiner Relationship Specialty Start Date End Date Unknown, Provider, PCP - General 11/26/08 12/12/12 documented as of this encounter
--- OUTSIDE RECORDS SUMMARY | 2021-05-19 14:43 | XMS_ITS | Encounter Summary ---
:1970 Author Organization [facility] Address [address] [place] [address] Care Team Providers Name Role Phone Unknown, Primary Care Provider Encounter Details Date Type Department Care Team Description 07/03/2009 Results Only [facility] Tisha Edge CNM Laboratory Services - [address] [facility] [place] [address] [address] [facility] [place] [address] [phone] Social History Tobacco Use Types Packs/Day Years Used Date Never Assessed Sex Assigned at Date Recorded Not on file documented as of this encounter Plan of Treatment Not on filedocumented as of this encounter Procedures Procedure Name Priority Date/Time Associated Diagnosis Comme nts CYTOPATHOLOGY Routine 07/03/2009 0:00 EDT Result s for this procedure are i n the results section . documented in this encounter Results CYTOPATHOLOGY (07/03/2009 0:00 EDT) Pathology Report: CYTOPATHOLOGY REPORT ? [facility] ? LAB Reports generated via electr onic interface contain original data; ? however they are lacking the format of the original report. ? Caution should be taken when reading/interpreting unformatted reports. ? Name: ? CAROLINE MARTE ET ? Accession #: ? [id number] ? : ? 1970 (Age: 38) ??F ?Collect Date: ? 07/03/2009 ? Location: ? [facility] ? Receive Date: ? 07/06/2009 ? Provider: ?ANEA LELON G CNM ? Copy to: ? Specimen/Source: ? Pap Test, Cervix/Endocervix, ThinPrep Imaging System ? with manual evaluation ? Last Menstrual Period: ? 02/27/10 ? Menstrual/ Status: ? SPECIMEN ADEQUACY ? Satisfactory for Eval uation ? - transformation zone compon ent absent ? GENERAL CATEGORIZATION ? Negative for Intraepi thelial Lesion or Malignancy ? Document reviewed and electr onically signed by: ? Katharine Khoi, CT(ASCP ) ? Report Date: ??05/20/ 2010 14:17 ? End of Report ? Specimen Performing Organization Address City/State/[facility] Code Phon e Number [facility] [address] [place] [address] SERVICES [facility] [address] [place] [address] documented in this encounter Visit Diagnoses Not on filedocumented in this encounter Care Teams Academic Support Coordinator Relationship Specialty Start Date End Date Unknown, Provider, PCP - General 11/26/08 12/12/12 documented as of this encounter
--- OUTSIDE RECORDS SUMMARY | 2021-05-19 14:43 | XMS_ITS | Encounter Summary ---
:1970 Author Organization [facility] Address [address] [place] [address] Care Team Providers Name Role Phone Nathan, Primary Care Provider Encounter Details Date Type Department Care Team Description 08/28/2000 Results Only [facility] - Ginny Simpson MD conversion [address] [facility] [address] [place], [place] [address] [place] [address] [phone] Social History Tobacco Use Types Packs/Day Years Used Date Never Assessed Sex Assigned at Date Recorded Not on file documented as of this encounter Plan of Treatment Not on filedocumented as of this encounter Procedures Procedure Name Priority Date/Time Associated Diagnosis Comme nts SURGICAL PATHOLOGY Routine 08/28/2000 0:00 Resul ts for this EDT procedure are i n the results section. documented in this encounter Results SURGICAL PATHOLOGY (08/28/2000 0:00 EDT) Pathology Report: SURGICAL PATHOLOGY REPORT [facility] Reports generated via electronic interface contain shereen ginal data; LAB however they are lacking the format of the original re port. Caution should be taken when reading/interpreting unfo rmatted reports. Name: ? EFRAÍN MARTE ? Accession #: ? [id number] ? : ? 1970 (Age: 30) ??F ? Collect Date: ? 08/28/2000 ? Location: ? [facility] ? Receive Date: ? 001 ? Provider: GINNY HELM MD Copy to: JANKI STEVENSON MD ? Final Pathologic Diagnosis: A. ?Tonsil, right, tonsillectomy: 1. ?Chronic active tonsillitis. 2. ?Luminal loki terial colonies consistent with Actinomyces species. 3. ?Follicular lymphoid hyperplasia. B. ?Tonsil, left, tonsillectomy: 1. ?Chronic focally active tonsillitis. 2. ?Follicular lymphoid hyperplasia. Document reviewed and electronically signed by: Reyna Youssef MD Report ??Date: 08/30/2000 16:03 By the signature above, the attending physician certif ies that he/she has personally conducted a gross and/or microscopic examin ation of the described specimens and rendered or confirmed the above diagnosi s. Specimen(s) Received: A. ?Tonsil, right #1 B. ?Tonsil, left #2 Clinical History: ? Chronic and acute tonsillitis Gross Description: ? Received in formalin labelled Boutah and rig ht tonsil is an ovoid peter-pink focally hemorrhagic lobular fir m palatine tonsil which measures 3.0 x 1.8 x 1.4 cm. ??Serially sectioned pieces reveal no nodules. ??Casework Supervisor section submitted as (A). Received in formalin labelled Boutah and left tonsi l is an slightly fragmented peter-pink focally hemorrhagic firm lobular palatine tonsil measuring 2.5 x 1.7 x 1.0 cm. ??Two fr agments received in the same container are white to pink focally hemorrhagic tissues measuring 1.9 x 0.6 x 0.2 cm and 1.9 x 0.5 x 0.4 cm. ??Sections reveal no nodules. ??One representa tive section from the palatine section and one section from each of the smal ler fragments are submitted as (B). ??(Dr. King)/[facility] End of Report Specimen Performing Organization Address City/State/ZIP Code Phon e Number [facility] [address] [place] [address] SERVICES [facility] [address] [place] [phone] documented in this encounter Visit Diagnoses Not on filedocumented in this encounter Care Teams Courseware Developer Relationship Specialty Start Date End Date Unknown, Provider, PCP - General 11/26/08 12/12/12 documented as of this encounter
--- OUTSIDE RECORDS SUMMARY | 2021-05-19 14:43 | XMS_ITS | Encounter Summary ---
:1970 Author Organization [facility] Address [address] [place] [address] Care Team Providers Name Role Phone Unknown, Primary Care Provider Encounter Details Date Type Department Care Team Description 02/29/2000 Results Only [facility] - Kaila Davies od, Jami Aponte, DIRECTOR OF STRATEGIC INITIATIVES conversion [address] [place] [phone] (Wo rk) Social History Tobacco Use Types Packs/Day Years Used Date Never Assessed Sex Assigned at Date Recorded Not on file documented as of this encounter Plan of Treatment Not on filedocumented as of this encounter Procedures Procedure Name Priority Date/Time Associated Diagnosis Comme nts CYTOPATHOLOGY Routine 02/29/2000 0:00 EST Result s for this procedure are i n the results section . documented in this encounter Results CYTOPATHOLOGY (02/29/2000 0:00 EST) Pathology Report: CYTOPATHOLOGY REPORT [facility] Reports generated via electronic interface contain shereen ginal data; however they are lacking the format of the original re port. Caution should be taken when reading/interpreting unfo rmatted reports. Name: ? SLOANE MARTE ? Accession #: ? [id number] : ? 1970 (Age: 29) ??F ?Collect Date: ? 10/2000 Location: ? [facility] ? Receive Date : ? 03/01/2000 Provider: ?JAMI GARCIA DIRECTOR OF STRATEGIC INITIATIVES Copy to: ? Specimen/Source: ?ThinPrep Pap Test, Cervix/ Endocervix Last Menstrual Period: ? 02/20/00 Hormonal/Contraceptive Status: ? Depo-Provera ? SPECIMEN ADEQUACY ? Satisfactory for evaluation. GENERAL CATEGORIZATION ? Within Normal Limits ? Document reviewed and electronically signed by: ? Amberly Pfeiffer, RUST(ASCP) ? Report Date: ??03/01/2000 15:39 End of Report Specimen Performing Organization Address City/State/ZIP Code Phon e Number [facility] [address] [place] [address] [facility] [place] [facility] [address] [place] [address] documented in this encounter Visit Diagnoses Not on filedocumented in this encounter Care Teams Machine Maintenance Relationship Specialty Start Date End Date Unknown, Provider, PCP - General 11/26/08 12/12/12 documented as of this encounter
--- OUTSIDE RECORDS SUMMARY | 2021-05-19 14:43 | XMS_ITS | Encounter Summary ---
:1970 Author Organization [facility] Address [address] [place] [address] Care Team Providers Name Role Phone Unavailable Primary Care Provider Unavailable Encounter Details Date Type Department Care Team Description 11/22/2008 Orders Only [facility] Devendra Sutton , Laboratory Services - [address] BEN SERRANO [address] [place] [address] [place] [address] [phone] Social History Tobacco Use Types Packs/Day Years Used Date Never Assessed Sex Assigned at Date Recorded Not on file documented as of this encounter Plan of Treatment Not on filedocumented as of this encounter Procedures Procedure Name Priority Date/Time Associated Diagnosis Comme [facility] SURGICAL PATHOLOGY Routine 11/22/2008 0:00 Resul ts for this EDT procedure are i n the results section. documented in this encounter Results SURGICAL PATHOLOGY (11/22/2008 0:00 EDT) Pathology Report: SURGICAL PATHOLOGY REPORT ? [facility] Reports generated via [employer] interface contain original data; ? LAB however they are lacking the format of the original report. ? Caution should be taken when reading/interpreting unformatted reports. ? Name: ? BOUTAHLYON, GIDG ET ? Accession #: ? [id number] ? : ? 1970 (Age: 38) ??F ? Collec t Date: ? 11/22/2008 ? Location: ? [facility] ? R eceive Date: ? 11/24/2008 ? Provider: DEVENDRA AUGUSTE SON DO ? Copy to: BRENDA READY MD ? Final Pathologic Diagnosis: ? Appendix, appendectom y: ? 1. ?Acute appen dicitis with transmural inflammation and acute serositis. See comment. ? 2. ? Appendiceal dilatio n. ? Comment: ? Dietary Supervisor sectio ns of this case have been reviewed at ? intradepartmental consultati on conference. ??(Dr. Baum)/[facility] ? Document reviewed and electr onically signed by: ? OSMANY BAUM MD ? Report ??Date: 11/26/2008 15 :10 ? By the signature above, the attending physician certifies that he/she has ? personally conducted a gross and/or microscopic examination of the described ? specimens and rendered or co nfirmed the above diagnosis. ? Specimen(s) Received: ? Appendix ? Clinical History: ? Acute appendicitis ? Gross Description: ? Received in formalin labelled EvelinaLyon, Sloane and appendix is a ? light peter, intact appendix m easuring 9.0 cm in length and a diameter of 1.5 cm. The specimen is received wit h minimal mesoappendix and the proximal end is ? stapled. ??The staple margin is inked in black. ??The serosa is peter-german and dusky with a small amount of peter-w ruben exudate. ??No perforations are identified. ??The wall thickness is 0.2 cm. ?? The luminal diameter is 1.0 cm. ??The lumen contains ?? peter to light brown liquid fe pauline material. ??No fecaliths are identified. ??A cross section of the area adjacent to the stapled margin, a longitudinal section of ?? the tip of the appendix, and credit and collections representative sections of the appendix are ? submitted in one cassette. ? ?(RafaStas [place])/rikn ? End of Report ? Specimen Performing Organization Address City/State/ZIP Code Phon e Number [facility] [address] [place] [address] SERVICES [facility] [address] [place] [address] documented in this encounter Visit Diagnoses Not on filedocumented in this encounter
--- OUTSIDE RECORDS SUMMARY | 2021-05-19 14:43 | XMS_ITS | Encounter Summary ---
:1970 Author Organization [facility] Address [address] [place] [address] Care Team Providers Name Role Phone Unknown, Primary Care Provider Encounter Details Date Type Department Care Team Description 03/17/1999 Results Only [facility] - Kaila Davies od, Jami Aponte, BOAT RENTAL CLERK conversion [address] [place] [phone] (Wo rk) Social History Tobacco Use Types Packs/Day Years Used Date Never Assessed Sex Assigned at Date Recorded Not on file documented as of this encounter Plan of Treatment Not on filedocumented as of this encounter Procedures Procedure Name Priority Date/Time Associated Diagnosis Comme nts CYTOPATHOLOGY Routine 03/17/1999 12:28 EST Result s for this procedure are i n the results section . documented in this encounter Results CYTOPATHOLOGY (03/17/1999 12:28 EST) Pathology Report: CYTOPATHOLOGY REPORT [facility] Reports generated via electronic interface contain shereen ginal data; however they are lacking the format of the original re port. Caution should be taken when reading/interpreting unfo rmatted reports. Name: ? SLOANE MARTE ? Accession #: ? [id number] : ? 1970 (Age: 28) ??F ?Collect Date: ? 02/21 Location: ?Receive Date: ? 03/17/1999 Provider: ?JAMI JOSE BOAT RENTAL CLERK Copy to: ?JAMI JOSE BOAT RENTAL CLERK ? Specimen/Source: ?Lead Sql Developer ThinPrep Last Menstrual Period: ? GYNECOLOGIC ??CYTOPATHOLOG Y ??REPORT Name: MERLY,SLOANE ?[facility] : 1970 ?? 28Y F ?Client ID: [id number] SS#: ? Clinician: JOSE BOAT RENTAL CLERK, JAMI ?? Location: [facility] ??Copy to: ?? Specimen: ?Lead Sql Developer ThinPrep ? Source: Cervix/Endocervix ?Collected: 03/16/99 ? Received: 03/17/1999 ?LMP: 03/02/99 ? Hormone Therapy: No ? : No ? Radiation Therapy: No ?? Post : No ?Chemotherapy: No ?IUD: No ? Prev Abnormal Pap: No ?? Clinical Hx: ?(Blank park indicate information not provided on requisition) SPECIMEN ADEQUACY: ? Satisfactory For Evaluation ?? GENERAL CATEGORIZATION: ? WITHIN NORMAL LIMITS ? Reviewed And Electronically Signed By: ? Musa Jaramillo , CT(ASCP) ? Report Date : ?? 03/17/1999 [employer] Archived Tests - Final Diagnosis Text Field: Clinical History : ? Document reviewed and electronically signed by: ? Conversion ? Report Date: ??03/17/1999 00:00 End of Report Specimen Performing Organization Address City/State/ZIP Code Phon e Number [facility] [address] [place] [address] SERVICES [facility] [address] [place] [address] documented in this encounter Visit Diagnoses Not on filedocumented in this encounter Care Teams Ladle Watcher Relationship Specialty Start Date End Date Unknown, Provider, PCP - General 11/26/08 12/12/12 documented as of this encounter
--- OUTSIDE RECORDS SUMMARY | 2021-05-19 14:43 | XMS_ITS | Encounter Summary ---
:1970 Author Organization [facility] Address [address] [place] [address] Care Team Providers Name Role Phone Unknown, Primary Care Provider Encounter Details Date Type Department Care Team Description 12/11/2012 Results Only [facility] Ruthann Rothman MD Laboratory Services - [address] [place] [phone] [place] [id number] Social History Tobacco Use Types Packs/Day Years Used Date Never Assessed Sex Assigned at Date Recorded Not on file documented as of this encounter Plan of Treatment Not on filedocumented as of this encounter Procedures Procedure Name Priority Date/Time Associated Diagnosis Comme nts SURGICAL PATHOLOGY Routine 12/11/2012 9:46 Resul ts for this EDT procedure are i n the results section. PAP TEST- RESULT Routine 12/11/2012 0:00 Results for this ONLY EDT procedure are i n the results section. documented in this encounter Results SURGICAL PATHOLOGY (12/11/2012 9:46 EDT) Pathology Report: SURGICAL PATHOLOGY REPORT [facility] Reports generated via electronic interface contain shereen ginal data; LAB however they are lacking the format of the original re port. Caution should be taken when reading/interpreting unfo rmatted reports. Name: ? TARAS MARTE ? Accession #: ? [id number] ? : ? 1970 (Age: 42) ??F ? Collect Date: ? 12/11/2012 ? Location: ? [facility] ? Receive Date: ? 013 ? Provider: RUTHANN ROTHMAN MD Copy to: QUYNH MOURA ? Final Pathologic Diagnosis: ENDOMETRIUM, BIOPSY: - ??Benign endocervical epithelium. Comment: Deeper levels of this case were examined on blocks 1 a nd 2. No endometrial tissue identified. Re-biopsy if clinically indicated. (Dr. Jhaveri). Document reviewed and electronically signed by: NA JHAVERI MD Report ??Date: 12/14/2012 15:03 By the signature above, the attending physician certif ies that he/she has personally conducted a gross and/or microscopic examin ation of the described specimens and rendered or confirmed the above diagnosi s. Specimen(s) Received: Endometrial bx Clinical History: Irregular bleeding; LMP: 12/03/12 (not sexually active ) Gross Description: ? Received in formalin labelled with proper patient identification (initials B, G) and endometrial biopsy is an aggregate of bloo d-tinged mucus and red-brown tissue (5 cc). Submitted in toto in blocks 1 -2. Maria E Tijerina 12/12/2012 10:01 AM End of Report Specimen Performing Organization Address City/State/ZIP Code Phon e Number [facility] [address] [place] [address] SERVICES [facility] [address] [place] [address] PAP TEST- RESULT ONLY (12/11/2012 0:00 EDT) Pathology Report: CYTOPATHOLOGY REPORT [facility] Reports generated via electronic interface contain shereen ginal data; however they are lacking the format of the original re port. Caution should be taken when reading/interpreting unfo rmatted reports. Name: ? EFRAÍN MARTE M ? Accession #: ? [id number] ? : ? 1970 (Age: 42) ??F ?Collect Da te: ? 12/11/2012 ? Location: ? [facility] ? Receive Date: ? 013 ? Provider: RUTHANN ROTHMAN MD Copy to: QUYNH MOURA ? Final Report SPECIMEN ADEQUACY ? Satisfactory for Evaluation - transformation zone component present GENERAL CATEGORIZATION ? Negative for Intraepithelial Lesion or Malignan cy ?? Last Menstrual Period: 11/23/12 Specimen/Source: ??Pap Test, Source Not Provided, [employer] Imaging System with manual evaluation Document reviewed and electronically signed by: ? ROB Salinas(ASCP) ? Report ??Date: 12/17/2012 12:40 HPV with Pap Test ? Date Ordered: ? 12/17/2012 ? Status: ?? Signed Out ?Date Complete: ? 12/19/2012 ? By: ??S ystem Interface ? Date Reported: ? 12/19/2012 ? Interpretation RESULT: Negative for HPV. No E6 or E7 mRNA is detected from HPV types 16,18,31,3 3,35, 39,45,51,52,56,58,59,66, and 68 by racing manager media twyla amplification. Test not validated for this type of specimen or collec tion method. The sensitivity and specificity of the test in this situation are unknown. The results should be interpret ed with caution. Comments Document reviewed and electronically signed by: ? System Interface ? Report date: 12/19/2012 By the signature above, the attending physician certif ies that he/she has personally conducted a gross and/or microscopic examin ation of the described specimens and rendered or confirmed the above diagnosi s. End of Report Specimen Performing Organization Address City/State/ZIP Code Phon e Number [facility] [address] [place] [address] SERVICES [facility] [address] [place] [address] documented in this encounter Visit Diagnoses Not on filedocumented in this encounter Care Teams Bowling Alley Refinisher Relationship Specialty Start Date End Date Unknown, Provider, PCP - General 11/26/08 12/12/12 documented as of this encounter
--- OUTSIDE RECORDS SUMMARY | 2021-05-19 14:43 | XMS_ITS | Encounter Summary ---
:1970 Author Organization [facility] Address [address] [place] [address] Care Team Providers Name Role Phone Unknown, Primary Care Provider Encounter Details Date Type Department Care Team Description 05/23/2001 Results Only [facility] - Kaila Davies od, Jami Aponte, JOGGER OPERATOR conversion [address] [place] [phone] (Wo rk) Social History Tobacco Use Types Packs/Day Years Used Date Never Assessed Sex Assigned at Date Recorded Not on file documented as of this encounter Plan of Treatment Not on filedocumented as of this encounter Procedures Procedure Name Priority Date/Time Associated Diagnosis Comme nts CYTOPATHOLOGY Routine 05/23/2001 0:00 EST Result s for this procedure are i n the results section . documented in this encounter Results CYTOPATHOLOGY (05/23/2001 0:00 EST) Pathology Report: CYTOPATHOLOGY REPORT [facility] Reports generated via electronic interface contain shereen ginal data; however they are lacking the format of the original re port. Caution should be taken when reading/interpreting unfo rmatted reports. Name: ? SLOANE MARTE ? Accession #: ? [id number] : ? 1970 (Age: 30) ??F ?Collect Date: ? 04/04/2001 Location: ? [facility] ? Receive Date : ? 05/25/2001 Provider: ?JAMI GARCIA JOGGER OPERATOR Copy to: ? Specimen/Source: ?ThinPrep Pap Test, Cervix/ Endocervix Last Menstrual Period: ? Hormonal/Contraceptive Status: ? Depo-Provera ? SPECIMEN ADEQUACY ? Satisfactory for Evaluation - transformation zone component absent GENERAL CATEGORIZATION ? Negative for Intraepithelial Lesion or Malignan cy INTERPRETATION ? Fungal organisms pres ent morphologically consistent with Lina species. ? Document reviewed and electronically signed by: ? ROB Coello(ASCP) ? Report Date: ??05/30/2001 14:43 End of Report Specimen Performing Organization Address City/State/ZIP Code Phon e Number [facility] [address] [place] [address] SERVICES [facility] [address] [place] [address] documented in this encounter Visit Diagnoses Not on filedocumented in this encounter Care Teams Senior Sous Chef Relationship Specialty Start Date End Date Unknown, Provider, PCP - General 11/26/08 12/12/12 documented as of this encounter
[2021-05-19 14:46] LABS: Abs Immature Grans 0.02 10^3/uL (0.0-0.06); Absolute Basophil Count 0.04 10^3/uL (0.0-0.2); Absolute Eosinophil Count 0.17 10^3/uL (0.0-0.7); Absolute Monocyte Count 0.62 10^3/uL (0.1-0.8); Basophils % 0.6; Eosinophils % 2.4; HCT 41.8 % (36.0-46.0); HGB 14.2 g/dL (11.2-15.7); Immature Grans % 0.3; Lymphocytes % 37.4; MCH 31.8 pg (27.0-33.0); MCV 93.7 fL (80-95); MPV 8.8 fL (8.0-11.0); Monocytes % 8.9; Neutrophils % 50.4; Nucleated RBC 0 %; Platelet Count 404 10^3/uL (130-400); RBC 4.46 10^6/uL (3.93-5.22); RDW 13.4 % (11.7-14.6); RDW-SD 45.7 fL; WBC 6.95 10^3/uL (4.4-10.8)
[2021-05-19 15:01] LABS: ALT 73 U/L (14-59); AST 49 U/L (15-37); Albumin 4.4 g/dL (3.4-5.0); Alkaline Phosphatase 81 U/L (46-116); Anion Gap 9.3 mmol/L (3-11); BUN 9 mg/dL (7-18); Bilirubin, Total 0.8 mg/dL (0.2-1.0); CO2 25.7 mmol/L (21.0-32.0); CREATININE 0.7 mg/dL (0.55-1.02); Calcium 9.4 mg/dL (8.5-10.1); Chloride 100 mmol/L (98-107); Glucose 111 mg/dL (74-106); Lipase 128 U/L (73-393); Potassium 3.5 mmol/L (3.5-5.1); Sodium 135 mmol/L (136-145); Total Protein 8.6 g/dL (6.4-8.2)
== END 2021-05-19 14:43 | disposition home or self-care (01) ==
LOC: LBN 14:42
PROVIDERS: PCP Physician Assistant Medical; Visit Provider Surgery
DX: K80.20 Calculus of gallbladder without cholecystitis without obstruction (principal); K85.10 Biliary acute pancreatitis without necrosis or infection
CPT/HCPCS: 80053; 83690; 85025

== ENCOUNTER 2021-05-24 04:05 | Outpatient (CLI) | payer MEDICAID, SELFPAY ==
[2021-05-24 10:36] LABS: Source Nasal/Nares
[2021-05-24 14:44] LABS: COVID-19 PCR Negative (Negative)
== END 2021-05-24 04:06 | disposition home or self-care (01) ==
LOC: LBO 04:05
PROVIDERS: PCP Physician Assistant Medical; Visit Provider Surgery
DX: Z20.822 Contact with and (suspected) exposure to COVID-19 (principal); Z01.818 Encounter for other preprocedural examination
CPT/HCPCS: 87635

== ENCOUNTER 2021-05-26 06:17 | Day surgery (SDC) | payer MEDICAID, SELFPAY ==
[2021-05-26] VITALS (12 sets, daily range): BP systolic 108–156; BP diastolic 77–106; PULSE 80–98; RESP 15–18; TEMP 36.4–37.1; O2SAT 94–100; BMI 47.2
--- NOTE | 2021-05-26 06:26 | W.PM.OP ---
Date of service: 05/26/21 Time of Service: 08:48 Operative Note Operative Note DATE OF PROCEDURE: 05/26/21 PRE-OP DIAGNOSIS: Gallstone Pancreatitis, Chronic cholecystitis POST-OP DIAGNOSIS: same PROCEDURE: laparoscopic Cholecystectomy SURGEON: Fawn Basilio PIGMENT MAKING SUPERVISOR: Patricia Ragland Refer to Anesthesia Record ESTIMATED BLOOD LOSS: 15 PATHOLOGY: other (gallbladder) COMPLICATIONS: None Patient was transported to: PACU Patient's condition: stable Indications: Patient is a pleasant 50-year-old female who was admitted last week for gallstone pancreatitis.? She was discharged on Monday on a low-fat diet.? She was not feeling well this morning and was nauseated.? By the time I saw her in the office she was able to have a bowel movement and better.? Her labs look okay.? There are no signs of pancreatitis.? We discussed risks of proceeding with laparoscopic cholecystectomy next week which will be 2 weeks out from her presentation with pancreatitis versus waiting another week.? After explaining the slight increase in risk of injury to other organs or structures due to inflammation and also slight increased risk in an open procedure the patient would like to proceed with laparoscopic cholecystectomy next week if at all possible.? I used a pamphlet to describe the procedure in detail as well as the risks, benefits and complications.? Her questions were answered and she wished to proceed. Risks, benefits, complications were reviewed with the patient in the office.? Complications include but are not limited to bleeding, infection, injury to stomach, small bowel and large bowel, injury to the pancreas, injury to the common bile duct necessitating drainage and referral to tertiary center for repair, bile leak, adverse reactions to the medications, complications of intubation including a sore throat or injury to the uvula, ME, stroke and even .? Questions were entertained and answered to her satisfaction and she wished to proceed.? No guarantees were given or implied. Cholecystectomy under general anesthesia, possible open, possible intraoperative cholangiogram Findings: Normal appearing Gallbladder Stones Procedure Description: After informed consent was obtained the patient was brought to the operating room, placed in a supine position and monitors were applied. SCDs were applied to her lower extremities and she was placed under general anesthesia and intubated without difficulty. Her abdomen was then prepped and draped in a sterile fashion using ChloraPrep. At this point a timeout was done and the patient's name, date of , procedure type, allergies to medications, metal in her body, antibiotic and DVT prophylaxis, and fire risk was assessed. At this point 0.25% Bupivocaine was injected just above the umbilicus into the dermis and subcutaneous tissue. A 5 mm incision was made with an 11 blade. The skin next to the incision was grasped with penetrating towel clamps and while pulling up on the skin a 5 mm port was placed under direct visualization. The abdomen was insuflated and then 3 more ports were placed. A 12 mm port was placed in the subxiphoid area and two 5 mm ports were placed in the right upper quadrant. The liver was inspected and looked normal. The patient's bed was then turned to the left and her head was brought up. The gallbladder was grasped at the body and pushed towards the right shoulder, this allowed me to visualize the neck of the gallbladder. The neck was grasped and pulled towards the right flank and down allowing me to visualize the lymph node. Using a [place] dissector with cautery the lymph node was gently dissected away from the tissues and the fatty tissue was also dissected away. The cystic duct was identified it was normal in size. The duct was dissected 360 degrees using the [place] dissector in order for me to visualize its entrance into the gallbladder. Liver was noted behind it. There were no other structures right behind. Critical view was achieved. 3 clips were placed one proximal and 2 distal and the cystic duct was cut. The cystic artery was then identified and dissected 360 degrees. It was located just medial to the cystic duct. It was visualized going into the gallbladder. Once dissected 3 more clips were placed one proximal and 2 distal and the artery was cut. Using the hook dissector the gallbladder was then dissected away from the liver bed and placed into an Endo Catch bag and pulled through the 12 mm port site. The port site had to be made larger due to the stones. The fascia was grasp[ed with cockers and closed with figure of eight stitch with 0 Vicryl. The liver bed was inspected no bleeding was noted. The abdomen was then irrigated with a liter of normal saline until the effluent was clear. Once all the fluid was suctioned out, the 2 right upper quadrant ports were removed under direct visualization and no bleeding was noted from the fascia. The abdomen was deflated completely and lastly the umbilical port was removed. The skin was cleaned and the incisions were closed with 4-0 Vicryl. The skin was dried and skin affix was applied over the closed incisions. Needle, instrument and sponge counts were correct at the end of the case. At this point the patient was woken up, extubated and taken back to recovery in stable condition. There were no immediate complications.
--- NOTE | 2021-05-26 06:28 | W.PM.DSUDISC ---
Discharge Plan Disposition Patient Disposition: HOME Condition: Stable Discharge Details Reason For Visit: Laparoscopic CHolecystectomy Attending Provider: Fawn Basilio Primary Care Provider: Riri Awad Home Meds and New Rx's Prescriptions: New oxycodone 5 mg tablet 5 mg PO Q6H PRNQty: 14 0RF Continued acetaminophen [Tylenol Extra Strength] 500 mg tablet 1,000 mg PO Q6H PRN0RF amitriptyline 10 mg tablet 20 mg PO HS 0RF Label Comments: TAKE 2 TABLETS BY MOUTH EVERY NIGHT hydrochlorothiazide 25 mg tablet 25 mg PO DAILY 0RF Humira(CF) Pen 40 mg/0.4 mL pen injector kit 40 mg SUBCUT Q2W 0RF lisinopril 10 mg Tablet 10 mg PO HS 0RF Discharge Instructions Instructions: Low Fat Diet (DC), Laparoscopic Cholecystectomy (DC) Additional Instructions: Activity at Home after surgery: 1. Make sure you walk outside at least 4 times per day 2. You should be able to climb a flight of stairs 3. No driving while in pain or taking pain medications 4. No strenuous activity or heavy lifting for 2 weeks (laparoscopic surgery) or 4 weeks (open surgery) Diet, Nutrition, & wound healin. Avoid alcohol until after you are recovered from your surgery 2. Make sure to eat plenty of lean protein (meat, fish, eggs, cottage cheese, beans) 3. Eat a variety of fruits and vegetables. Eat plenty of high fiber foods to avoid constipation. 4. Drink plenty of liquids to stay hydrated and avoid constipation Pain Medications: 1. Tylenol 650mg every 6 hours as needed and Ibuprofen 600 mg every 6 hours as needed. You may alternate between the 2 medications every 3 hours 2. If a narcotic has been prescribed take as directed only for breakthrough pain For Constipation: 1. Take Milk of Magnesia or MiraLax as needed for constipation Other: 1. You may shower daily. Do not scrub the incisions 2. Do not soak the incisions for 1 week 3. You may alternate ice and heat as needed for pain and swelling Wound Care: 1. Keep the incisions clean and dry Other Services that may have been ordered: 0 Home Health- to help with dressing changes 0 Outpatient physical therapy Please call our office if you develop: 1. Fevers >101.5 2. Nausea or Vomiting 3. Worsening pain 4. Redness and thick discharge from the wounds If after hours please call the Hospital at and ask to speak to the on-call surgeon Referrals: Fawn Basilio MD [ [facility] STAFF PHYSICIAN] - 06/15/21 8:00 am Activity:: as above Remove Dressings/Wound Care:: Do Not Remove Shower/Bathe:: 24 hours Diet:: low fat Discharge Orders Discharge Orders: Discharge Order (Routine); Ordered 05/26/21 Ordered By: Fawn Basilio
[2021-05-26] MEDS: Celecoxib 200 MG CAP PO (07:03)
[2021-05-26] MEDS: Acetaminophen 500 MG TAB 1000 MG PO (07:03)
[2021-05-26] MEDS: Gabapentin 300 MG CAP 600 MG PO (07:03)
--- NOTE | 2021-05-26 07:07 | W.ANESPRE ---
General Info Date of Service Date Performed: 05/26/21 Height: 5 ft 1.5 in Weight: 115.3 kg Body Mass Index (BMI): 47.2 Surgical Procedure: Operation Date: 05/26/21 07:40 Proposed Procedure Side Surgeon p Cholecystectomy Laparoscopic Poss. Cholangio, Poss. Open Fawn Basilio MD Meds Allergies and Home Medications Allergies Allergy/AdvReac Type Severity Reaction Status Date / Time lactose Allergy Mild Other (See Unverified 05/26/21 06:36 Comment) Penicillins Allergy Unknown Skin Rash Unverified 05/26/21 06:36 Home Medication Medication Instructions Recorded lisinopril 10 mg tablet 10 mg PO HS 06/28/19 adalimumab 40 mg/0.4 mL 40 mg SUBCUT Q2W 05/13/21 subcutaneous pen kit (Humira(CF) Pen) amitriptyline 10 mg tablet 20 mg PO HS 05/13/21 hydrochlorothiazide 25 mg tablet 25 mg PO DAILY 05/13/21 acetaminophen 500 mg tablet 1,000 mg PO Q6H PRN tab 05/19/21 (Tylenol Extra Strength) Current Visit Medications: Current Medications Generic Name Dose Route Start Last Admin Trade Name Freq PRN Reason Stop Dose Admin Acetaminophen 1,000 mg 05/26/21 06:00 05/26/21 07:03 Acetaminophen 500 Mg Tab PO 06/24/21 23:59 1,000 mg PREOP PACO Administration Celecoxib 200 mg 05/26/21 06:00 05/26/21 07:03 Celecoxib 200 Mg Cap PO 06/24/21 23:59 200 mg PREOP PACO Administration Gabapentin 600 mg 05/26/21 06:00 05/26/21 07:03 Gabapentin 300 Mg Cap PO 06/24/21 23:59 600 mg PREOP PACO Administration Ringer's Solution 1,000 mls @ 80 mls/hr 05/26/21 06:00 IV 06/24/21 23:59 INFUSION PACO Cefazolin Sodium/Dextrose 2 gm in 50 mls @ 100 mls/hr 05/26/21 06:00 Ancef Duplex IVPB 06/24/21 23:59 PREOP PACO Ondansetron HCl 4 mg/ Sodium 52 mls @ 200 mls/hr 05/26/21 06:29 Chloride IVPB Q6H PRN PRN IV Miscellaneous Supplies 1 each 05/26/21 06:00 Iv Access IV 06/24/21 23:59 DIRECTED PACO Ibuprofen 600 mg 05/26/21 06:29 Ibuprofen 600 Mg Tab PO Q6H PRN PRN Pain Oxycodone HCl 5 mg 05/26/21 06:29 Oxycodone 5 Mg Tab PO Q3H PRN PRN Pain Sodium Chloride 0 ml 05/26/21 06:00 Normal Saline Flush 10 Ml Syr IV 06/24/21 23:59 PRN PRN Sodium Chloride 0 ml 05/26/21 06:00 Normal Saline 10 Ml Vial IJ 06/24/21 23:59 DIRECTED PRN Sterile Water 0 ml 05/26/21 06:00 Water,Injection,Sterile 10 Ml Vial IJ 06/24/21 23:59 DIRECTED PRN PFSH Active Problems Active Problems: Problem Status Onset Code COVID-19 U07.1 Acute cholecystitis K81.0 Gallstones K80.20 Medical History Medical History (Updated 05/26/21 @ 07:16 by Ana Cabrales) Former smoker HTN (hypertension) Hx of sleep apnea Psoriasis Surgical History Surgical History (Updated 05/26/21 @ 06:33 by Ana Cabrales) History of carpal tunnel release of both wrists History of section x5 Hx of appendectomy Hx of tonsillectomy Tobacco Smoking/Tobacco Use Status: Former Tobacco Use Alcohol Alcohol Intake: current Alcohol intake frequency: holidays/special occasions only Substance Use Substance use: Never Substance use type: does not use Vital Signs and Lab Results Vital Signs Most Recent Vital Signs in EMR: Most Recent Vital Signs Temp Pulse Resp BP Pulse Ox 37.1 C 92 H 16 132/93 H 98 05/26/21 06:53 05/26/21 06:53 05/26/21 06:53 05/26/21 06:53 05/26/21 06:53 Point of Care Results Point of Care Results: POC- Test(urine) Negative 05/26/21 06:53 Lab Results Blood Type / Crossmatch: No Data to Display Complete Blood Count: White Blood Count 6.95 10^3/uL (4.4-10.8) 05/19/21 14:15 05/19/21 Red Blood Count 4.46 10^6/uL (3.93-5.22) 05/19/21 14:15 05/19/21 Hemoglobin 14.2 g/dL (11.2-15.7) 05/19/21 14:15 05/19/21 Hematocrit 41.8 % (36.0-46.0) 05/19/21 14:15 05/19/21 Platelet Count 404 10^3/uL (130-400) H 05/19/21 14:15 05/19/21 Complete Metabolic Panel: Sodium Level 135 mmol/L (136-145) L 05/19/21 14:15 05/19/21 Potassium Level 3.5 mmol/L (3.5-5.1) 05/19/21 14:15 05/19/21 Chloride Level 100 mmol/L (98-107) 05/19/21 14:15 05/19/21 Carbon Dioxide Level 25.7 mmol/L (21.0-32.0) 05/19/21 14:15 05/19/21 Blood Urea Nitrogen 9 mg/dL (7-18) 05/19/21 14:15 05/19/21 Creatinine 0.7 mg/dL (0.55-1.02) 05/19/21 14:15 05/19/21 Estimated GFR/1.73 m2 >= 60.00 (mL/min/1.73m2) 05/19/21 14:15 05/19/21 Magnesium Level 2.3 mg/dL (1.8-2.4) 05/16/21 06:05/16/21 Calcium Level 9.4 mg/dL (8.5-10.1) 05/19/21 14:15 05/19/21 Albumin 4.4 g/dL (3.4-5.0) 05/19/21 14:15 05/19/21 Glucose Level 111 mg/dL (74-106) H 05/19/21 14:15 05/19/21 Liver Function Panel: Alanine Aminotransferase (ALT/SGPT) 73 U/L (14-59) H 05/19/21 14:15 05/19/21 Aspartate Amino Transf (AST/SGOT) 49 U/L (15-37) H 05/19/21 14:15 05/19/21 Coagulation Panel: No Data to Display Cardiac Panel: No Data to Display Arterial Blood Gas: No Data to Display Venous Blood Gas: No Data to Display Pancreas Panel: Lipase 128 U/L (73-393) 05/19/21 14:15 05/19/21 Thyroid Panel: No Data to Display Infectious Disease: Coronavirus (COVID-19)(PCR) Negative (Negative) 05/24/21 08:19 05/24/21 Coronavirus 2019 Source Nasal/Nares 05/24/21 08:19 05/24/21 Blood Cultures: No Data to Display Toxicology Panel: No Data to Display Panel: No Data to Display Imaging and Studies Imaging and Studies Study information below may be from another EMR and interpreted by another provider. Please see original notes in EMR for more complete details. EKG Summary: Conclusion Sinus rhythm...normal P axis, V-rate 60- 99 I have reviewed and I agree with the emergency room physician's ECG interpretation. Anesthesia Assessment and Plan Anesthesia History Personal History: No History of Anesthesia Complications Family History: No Family History of Anesthesia Complications Exercise Tolerance Exercise Tolerance: Metabolic Equivalents>4 Pertinent Negatives Pertinent Negatives: No Major Pulmonary Symptoms or Complaints Cardiac & Pulmonary Exam Cardiac Exam: Normal S1/S2 Heart Sounds Pulmonary Exam: Clear Bilateral Breath Sounds Implantable Cardiac Device Does patient have a Pacemaker or an ICD?: No Airway Exam Known Difficult Airway: No Mallampati Class: 2 Mouth Opening: Normal (> 3cm) Thyromental Distance: Greater than 3 cm Neck Range of Motion: Full ROM Neck Circumference: Normal Teeth Condition: Normal Dentition and Other (Missing left lower teeth, nothing loose) ASA Classification ASA Score: ASA 3 Emergency Case?: No NPO Status NPO Status: NPO Clears >2 hours, Solids >8 hours Status Status: Negative HCG Anesthesia Plan Resuscitation Status: Full Code Anesthesia Technique: General Anesthesia Airway Planned: Endotracheal Tube Monitors Used: Standard Monitors
[2021-05-26] MEDS: Lactated Ringers 1,000 ML 80 ML IV (07:15)
[2021-05-26] MEDS: ceFAZolin 2 GM/50 ML BAG IVPB (07:28)
[2021-05-26] MEDS: Bupivacaine 0.25% Pres-Free 30 ML VIAL (07:49)
--- NOTE | 2021-05-26 08:15 | GB_PTH ---
PATIENT: Sloane Astorga LOC: [facility] U#:[id number] AGE/SX: 50/F ROOM: RE05/26/[address]: Fawn Basilio MD : 1970 BED: DIS: 05/26/2021 SPEC #: [id number] RECD: 05/26/21 12:23 STATUS: MANNIE REAshutosh #: [id number] IRMA: 05/26/21 08:[address]: Fawn Basilio DEPT: Surgical Specimen RECD BY: Lennie Joaquin ENTERED: 05/26/21 12:24 SP TYPE: GB OTHR DR: Riri Awad Tissues: 1 - GALLBLADDER Procedures: GROSS AND MICRO LEVEL 3 Comments: [id number]
[2021-05-26] MEDS: fentaNYL 100 MCG/2 ML VIAL IVP ×2 (09:22→10:00)
[2021-05-26] MEDS: HYDROmorphone 2 MG/ML VIAL IVP (09:28)
[2021-05-26] MEDS: oxyCODONE 5 MG TAB PO (10:40)
--- NOTE | 2021-05-26 11:25 | ANES.POST_ITS ---
Postoperative Evaluation Date, Time and Location Date Performed: 05/26/21 Time Performed: 11:26 Patient Location: Day Surgery Unit Vital Signs Most Recent Imported Vital Signs: Most Recent Vital Signs Temp Pulse Resp BP Pulse Ox 36.5 C 91 H 16 108/79 97 05/26/21 10:25 05/26/21 10:25 05/26/21 10:25 05/26/21 10:25 05/26/21 10:25 Pain Score Most Recent Pain Score: Most Recent Pain Score Pain Level 10 05/26/21 10:25 Assessment Mental Status: Awake (Alert & Oriented to Patient Baseline) Airway and Respiratory Function: Patent airway with normal (patient baseline) respiratory exam Cardiovascular Function: Hemodynamically Stable Hydration Status: Adequately Hydrated Nausea & Vomiting: No Nausea or Vomiting Pain: Pain is Moderate or Severe Postoperative Pain Management: Pain being ad dressed with medication Peripheral Nerve Block: Patient did not receive a nerve block
[2021-05-26] MEDS: Ibuprofen 600 MG TAB PO (11:40)
== END 2021-05-26 13:05 | disposition home or self-care (01) ==
PROVIDERS: PCP Physician Assistant Medical; Visit Provider Surgery
PROC: 0FT44ZZ Resection of Gallbladder, Percutaneous Endoscopic Approach (ICD-10-PCS; CPT 47563; principal; 2021-05-26 07:30)
DX: K80.10 Calculus of gallbladder with chronic cholecystitis without obstruction (principal); K85.10 Biliary acute pancreatitis without necrosis or infection; I10 Essential (primary) hypertension; Z87.891 Personal history of nicotine dependence
CPT/HCPCS: 47562; 81025; 88304; J0690; J1100; J2250; J2405; J3010

== ENCOUNTER 2021-06-18 09:29 | Outpatient (REF) | payer MEDICAID, SELFPAY ==
[2021-06-18 14:56] LABS: Abs Immature Grans 0.01 10^3/uL (0.0-0.06); Absolute Basophil Count 0.04 10^3/uL (0.0-0.2); Absolute Eosinophil Count 0.15 10^3/uL (0.0-0.7); Absolute Lymphocyte Count 1.84 10^3/uL (1.2-3.4); Absolute Monocyte Count 0.44 10^3/uL (0.1-0.8); Absolute Neutrophil Count 3.04 10^3/uL (1.2-6.7); Basophils % 0.7; Eosinophils % 2.7; HCT 38.2 % (36.0-46.0); HGB 12.6 g/dL (11.2-15.7); Immature Grans % 0.2; Lymphocytes % 33.3; MCH 33.2 pg (27.0-33.0); MCV 101 fL (80-95); Neutrophils % 55.1; Platelet Count 277 10^3/uL (130-400); RDW 16.1 % (11.7-14.6); RDW-SD 59.6 fL; WBC 5.52 10^3/uL (4.4-10.8)
[2021-06-18 15:16] LABS: Hemoglobin A1C 5.6 % (<5.7)
[2021-06-18 15:17] LABS: ALT 50 U/L (14-59); AST 30 U/L (15-37); Albumin 4.4 g/dL (3.4-5.0); Alkaline Phosphatase 77 U/L (46-116); Anion Gap 10.1 mmol/L (3-11); BUN 10 mg/dL (7-18); Bilirubin, Total 0.8 mg/dL (0.2-1.0); CO2 26.9 mmol/L (21.0-32.0); CREATININE 0.7 mg/dL (0.55-1.02); Calcium 8.9 mg/dL (8.5-10.1); Chloride 102 mmol/L (98-107); Glucose 116 mg/dL (74-106); Potassium 3.8 mmol/L (3.5-5.1); Sodium 139 mmol/L (136-145); Total Protein 7.3 g/dL (6.4-8.2)
== END 2021-06-18 09:30 | disposition home or self-care (01) ==
LOC: NCHCN 09:29
PROVIDERS: PCP Physician Assistant Medical; Visit Provider Physician Assistant Medical
DX: R11.0 Nausea (principal); R73.03 Prediabetes; I10 Essential (primary) hypertension
CPT/HCPCS: 80053; 83036; 85025

== ENCOUNTER 2021-07-26 03:24 | Outpatient (CLI) | payer MEDICAID, SELFPAY ==
[2021-07-26 10:10] LABS: Source Nasal/Nares
[2021-07-26 15:36] LABS: COVID-19 PCR Negative (Negative)
== END 2021-07-26 03:25 | disposition home or self-care (01) ==
LOC: LBO 03:24
PROVIDERS: PCP Physician Assistant Medical; Visit Provider Surgery
DX: Z20.822 Contact with and (suspected) exposure to COVID-19 (principal); Z01.818 Encounter for other preprocedural examination
CPT/HCPCS: 87635

== ENCOUNTER 2021-07-28 08:39 | Day surgery (SDC) | payer MEDICAID, SELFPAY ==
--- NOTE | 2021-07-28 06:22 | W.ANESPRE ---
General Info Date of Service Date Performed: 07/28/21 Height: 5 ft 1.5 in Weight: 143 kg Body Mass Index (BMI): 58.6 Surgical Procedure: Operation Date: 07/28/21 10:20 Proposed Procedure Side Surgeon p Gastroscopy Fawn Basilio MD Meds Allergies and Home Medications Allergies Allergy/AdvReac Type Severity Reaction Status Date / Time lactose Allergy Mild Other (See Unverified 07/28/21 08:56 Comment) Penicillins Allergy Unknown Skin Rash Unverified 07/28/21 08:56 Home Medication Medication Instructions Recorded lisinopril 10 mg tablet 10 mg PO HS 06/28/19 adalimumab 40 mg/0.4 mL 40 mg subcut Q2W 05/13/21 subcutaneous pen kit (Humira(CF) Pen) amitriptyline 10 mg tablet 20 mg PO HS 05/13/21 hydrochlorothiazide 25 mg tablet 25 mg PO DAILY 05/13/21 acetaminophen 500 mg tablet 1,000 mg PO Q6H PRN 05/19/21 (Tylenol Extra Strength) omeprazole 40 mg capsule,delayed 40 mg PO DAILY #30 caps 06/15/21 release sucralfate 1 gram tablet (Carafate) 1 g PO TID #90 tabs 06/15/21 ondansetron HCl 4 mg tablet 4 mg PO Q6H PRN nausea and 07/05/21 vomiting #14 tabs Current Visit Medications: Current Medications Generic Name Dose Route Start Last Admin Trade Name Freq PRN Reason Stop Dose Admin Ringer's Solution 1,000 mls @ 80 mls/hr 07/28/21 06:00 IV 08/26/21 23:59 INFUSION PACO IV Miscellaneous Supplies 1 each 07/28/21 06:00 Iv Access IV 08/26/21 23:59 DIRECTED PACO Sodium Chloride 0 ml 07/28/21 06:00 Normal Saline Flush 10 Ml Syr IV 08/26/21 23:59 PRN PRN Sodium Chloride 0 ml 07/28/21 06:00 Normal Saline 10 Ml Vial IJ 08/26/21 23:59 DIRECTED PRN Sterile Water 0 ml 07/28/21 06:00 Water,Injection,Sterile 10 Ml Vial IJ 08/26/21 23:59 DIRECTED PRN PFSH Active Problems Active Problems: Problem Status Onset Code Pre-operative clearance Z01.818 Nausea R11.0 Heart burn R12 COVID-19 U07.1 Medical History Medical History Anemia due to chronic blood loss (12/11/12) Former smoker HTN (hypertension) Hx of sleep apnea Menometrorrhagia (12/11/12) Psoriasis Surgical History Surgical History History of carpal tunnel release of both wrists History of section x5 Hx of appendectomy Hx of tonsillectomy S/P laparoscopic cholecystectomy (~05/26/21) Chronic cholecystitis and Cholelithiasis Tobacco Smoking/Tobacco Use Status: Former Tobacco Use Alcohol Alcohol Intake: current Alcohol intake frequency: holidays/special occasions only Substance Use Substance use: Never Substance use type: does not use Vital Signs and Lab Results Vital Signs Most Recent Vital Signs in EMR: Temp Pulse Resp BP Pulse Ox 36.5 C 94 H 18 137/95 H 98 07/28/21 08:57 07/28/21 08:57 07/28/21 08:57 07/28/21 08:57 07/28/21 08:57 Lab Results Blood Type / Crossmatch: No Data to Display Complete Blood Count: No Data to Display Complete Metabolic Panel: No Data to Display Liver Function Panel: No Data to Display Coagulation Panel: No Data to Display Cardiac Panel: No Data to Display Arterial Blood Gas: No Data to Display Venous Blood Gas: No Data to Display Pancreas Panel: No Data to Display Thyroid Panel: No Data to Display Infectious Disease: Coronavirus (COVID-19)(PCR) Negative (Negative) 07/26/21 08:30 Coronavirus 2019 Source Nasal/Nares 07/26/21 08:30 Blood Cultures: No Data to Display Toxicology Panel: No Data to Display Panel: No Data to Display Imaging and Studies Imaging and Studies Study information below may be from another EMR and interpreted by another provider. Please see original notes in EMR for more complete details. EKG Summary: 07/10: Sinus rhythm...normal P axis, V-rate 60- 99 Anesthesia Assessment and Plan Anesthesia History Personal History: No History of Anesthesia Complications Family History: No Family History of Anesthesia Complications Exercise Tolerance Exercise Tolerance: Metabolic Equivalents>4 Cardiac & Pulmonary Exam Cardiac Exam: Normal S1/S2 Heart Sounds Pulmonary Exam: Clear Bilateral Breath Sounds Implantable Cardiac Device Does patient have a Pacemaker or an ICD?: No Airway Exam Known Difficult Airway: No Mallampati Class: 2 Mouth Opening: Normal (> 3cm) Thyromental Distance: Greater than 3 cm Neck Range of Motion: Full ROM Neck Circumference: Normal Teeth Condition: Normal Dentition and Other ASA Classification ASA Score: ASA 3 Emergency Case?: No NPO Status NPO Status: NPO Clears >2 hours, Solids >8 hours Status Status: Negative HCG Anesthesia Plan Resuscitation Status: Full Code Anesthesia Technique: General Anesthesia Airway Planned: Natural Airway Monitors Used: Standard Monitors Preoperative Comments:: 50 yo female with pain in subxiphoid after lap rochelle here for EGD. Sig PMHx: HTN (hctz, lisinopril), former smoker, Previous Anes: glide 3
--- NOTE | 2021-07-28 06:47 | HPE_ITS ---
Assessment and Plan Assessment and plan (1) Nausea: Status: Acute Assessment and plan: Sloane is almost 3 weeks out from her laparoscopic cholecystectomy.? She is still complaining of some local pain at her subxiphoid incision as well as one of the right upper quadrant incisions.? On examination her incisions are clean dry and intact.? I cannot feel or see any sutures from the incisions.? I cannot feel any hernias.? I suspect that she just still has a little bit of inflammation in the area.? Recommend that she medicinal plant picker some Arnica cream or oil to rub on these incisions a couple times a day.? She can also do ice, heat and Tylenol every 6 hours as needed.? Due to her stomach pain I would recommend not doing any ibuprofen right now. I suspect that Sloane has developed some gastritis either due to acid overproduction or due to bile reflux.? I will start her on omeprazole 40 mg daily as well as Carafate 3 times a day before meals.? We discussed continuing a low-fat low acid diet for now.? She needs to make sure that she is getting enough protein in her diet.? We discussed things like rice, chicken, fish, pasta without heavy sauces should all be good for her to eat.? Eggs and toast are perfect for breakfast.? She could try some oatmeal for breakfast as well. Risks, benefits and complications have been reviewed. Complications include but are not limited to bleeding, pain, perforation, sore throat, aspiration, and adverse reaction to the medications. Questions were entertained and answered to their satisfaction and they wished to proceed. No guarantees were given or implied. (2) Heart burn: (3) Nausea: (2) Heart burn: Status: Acute History of Present Illness Narrative: Sloane is here today for her postop visit.? She complains of sharp pain at the subxiphoid incision as well as one of the right upper quadrant incisions.? She tells me that it feels like she is getting stabbed from the inside if she moves just right.? She also complains of nausea and epigastric pain.? She has been eating small meals throughout the day and trying to stay away from fats.? We discussed her pathology results.? She has had no vomiting.? She has had some looser stools which I reassured her is not that abnormal after cholecystectomy.? This should hopefully resolve in time.? She also complains of being more gassy and burping a lot more.? She denies fevers or chills. Review of Systems All systems reviewed & are unremarkable except as noted in HPI and below PFSH All Active Problems Pre-operative clearance (Acute) Nausea (Acute) Heart burn (Acute) COVID-19 (Acute) Medical History Anemia due to chronic blood loss (12/11/12) Former smoker HTN (hypertension) Hx of sleep apnea Menometrorrhagia (12/11/12) Psoriasis Surgical History History of carpal tunnel release of both wrists History of section x5 Hx of appendectomy Hx of tonsillectomy S/P laparoscopic cholecystectomy (~05/26/21) Chronic cholecystitis and Cholelithiasis Social History Smoking/Tobacco Use Status: Former Tobacco Use Quit Date: 02/20/14 Smoking risk assessment performed?: Yes Alcohol Intake: current Alcohol Intake frequency: holidays/special occasions only Drug use: Never Substance use type: does not use Current gender identity: female Do you feel safe at home: Yes Do you feel safe in your relationship?: Yes Meds Allergies and Home Medications Allergies Allergy/AdvReac Type Severity Reaction Status Date / Time lactose Allergy Mild Other (See Unverified 07/28/21 08:56 Comment) Penicillins Allergy Unknown Skin Rash Unverified 07/28/21 08:56 Home Medications Medication Instructions Recorded Confirmed Type lisinopril 10 mg tablet 10 mg PO HS 06/28/19 07/28/21 History adalimumab 40 mg/0.4 mL 40 mg subcut Q2W 05/13/21 07/28/21 History subcutaneous pen kit (Humira(CF) Pen) amitriptyline 10 mg tablet 20 mg PO HS 05/13/21 07/28/21 History hydrochlorothiazide 25 mg tablet 25 mg PO DAILY 05/13/21 07/28/21 History acetaminophen 500 mg tablet 1,000 mg PO Q6H PRN 05/19/21 07/28/21 History (Tylenol Extra Strength) omeprazole 40 mg capsule,delayed 40 mg PO DAILY #30 caps 06/15/21 06/15/21 Rx release sucralfate 1 gram tablet (Carafate) 1 g PO TID #90 tabs 06/15/21 06/15/21 Rx ondansetron HCl 4 mg tablet 4 mg PO Q6H PRN nausea and 07/05/21 07/28/21 Rx vomiting #14 tabs Exam HENMT Head: normocephalic and atraumatic Resp Effort & Inspection: normal respiratory effort Auscultation: clear to auscultation bilaterally Cardio Rate: regular rate Rhythm: regular rhythm GI Inspection: normal to inspection Palpation: soft, no hepatosplenomegaly and nontender Auscultation: normal bowel sounds
--- NOTE | 2021-07-28 06:52 | W.PM.DSUDISC ---
Discharge Plan Disposition Patient Disposition: HOME Condition: Good Discharge Details Reason For Visit: EGD Attending Provider: Fawn Basilio Primary Care Provider: Riri Awad Home Meds and New Rx's Prescriptions: Continued omeprazole 40 mg capsule,delayed release(DR/EC) 40 mg PO DAILY Qty: 30 0RF sucralfate [Carafate] 1 gram tablet 1 g PO TID Qty: 90 0RF Rx Instructions: Take 30 minutes before breakfast, lunch and dinner acetaminophen [Tylenol Extra Strength] 500 mg tablet 1,000 mg PO Q6H PRN ondansetron HCl 4 mg tablet 4 mg PO Q6H PRN (Reason: nausea and vomiting) Qty: 14 1RF amitriptyline 10 mg tablet 20 mg PO HS Label Comments: TAKE 2 TABLETS BY MOUTH EVERY NIGHT hydrochlorothiazide 25 mg tablet 25 mg PO DAILY Humira(CF) Pen 40 mg/0.4 mL pen injector kit 40 mg SUBCUT Q2W lisinopril 10 mg Tablet 10 mg PO HS Discharge Instructions Instructions: Gastritis (DC), Diet for Stomach Ulcers and Gastritis (ED) Additional Instructions: Findings: inflammation of the stomach due to bile reflux Follow up: 2 weeks Please call if you develop: fevers >101.5 Nausea or Vomiting Abdominal pain that is not transient Rectal bleeding that is more then a tbsp A hard abdomen and inability to pass gas DAY SURGERY UNIT POST ENDOSCOPY INSTRUCTIONS Instructions for everyone who is given Anesthesia: For your safety, please do the following for the next 24 Hours: a. Do not drive or operate dangerous equipment b. Do not drink alcohol beverages or use any recreational drugs for the first 24 hours or while taking pain medications. The medications in your body may have a reaction that can be dangerous. c. Do not make any important decisions or sign any important papers 1. Generally there are no restrictions on your activity after a day or so has gone by, but you may feel a bit fatigued for a few days. 2. After you arrive home you may have a light meal and return to a normal diet as you can tolerate it without feeling sick to your stomach. 3. After surgery, you may feel pain or discomfort. This should be only transient, but if it persists please contact your doctor. 4. If there are any questions regarding the findings of your procedure, please feel free to contact your doctor. 6. If you are unable to contact your doctor with a problem, contact the hospital at [phone]. 7. Continue all your regular medications unless directed otherwise. I understand the above instructions and have no questions. Signature of Patient or Responsible Adult Escort Date/Time Name of Responsible Adult Escort Signature of Nurse Date/Time Referrals: Fawn Basilio MD [ [facility] STAFF PHYSICIAN] - Activity:: Activity as Tolerated Diet:: As Tolerated Discharge Orders Discharge Orders: Discharge Order (Routine); Ordered 07/28/21 Ordered By: Fawn Basilio DS: Diagnosis Discharge Diagnosis (1) Nausea: Status: Acute (2) Heart burn: Status: Acute
--- NOTE | 2021-07-28 06:53 | ENDO_ITS ---
Date of service: 07/28/21 Time of Service: 10:02 Endoscopy Report DATE OF PROCEDURE: 07/28/21 PRE-OP DIAGNOSIS: Nausea and epigastric pain POST-OP DIAGNOSIS: other (bile reflux gastritis) PROCEDURE: EGD with biopsies SURGEON: Fawn Basilio ANESTHESIA TYPE: General:No Airway ESTIMATED BLOOD LOSS: 2 PATHOLOGY: other (biopsies of stomach and esophagus) COMPLICATIONS: None DISPOSITION: same day INDICATIONS: Sloane is almost 3 weeks out from her laparoscopic cholecystectomy.? She is still complaining of some local pain at her subxiphoid incision as well as one of the right upper quadrant incisions.? On examination her incisions are clean dry and intact.? I cannot feel or see any sutures from the incisions.? I cannot feel any hernias.? I suspect that she just still has a little bit of inflammation in the area.? Recommend that she berry picker machine operator some Arnica cream or oil to rub on these incisions a couple times a day.? She can also do ice, heat and Tylenol every 6 hours as needed.? Due to her stomach pain I would recommend not doing any ibuprofen right now. I suspect that Sloane has developed some gastritis either due to acid overproduction or due to bile reflux.? I will start her on omeprazole 40 mg daily as well as Carafate 3 times a day before meals.? We discussed continuing a low-fat low acid diet for now.? She needs to make sure that she is getting enough protein in her diet.? We discussed things like rice, chicken, fish, pasta without heavy sauces should all be good for her to eat.? Eggs and toast are perfect for breakfast.? She could try some oatmeal for breakfast as well. Risks, benefits and complications have been reviewed. Complications include but are not limited to bleeding, pain, perforation, sore throat, aspiration, and adverse reaction to the medications.? Questions were entertained and answered to their satisfaction and they wished to proceed. No guarantees were given or implied. FINDINGS: large amount of bile within the stomach PROCEDURE DESCRIPTION: After informed consent was obtained the patient was take to the procedure room and placed in a supine position. Monitors were applied and a time out was done. The patients name, date of , procedure type, allergies to medications and metal in their body was reviewed. A bite block was placed and the patient was sedated. Once sedated and comfortable the gastroscope was advanced through the oropharynx which was grossly normal into the esophagus. The proximal and mid- esophagus were normal. In the distal esophagus there was evidence of reflux noted. The scope was advanced into the stomach and through the pylorus into the 3rd portion of the duodenum. The duodenum was noted to be normal. Biopsies were done. The scope was retracted back into the stomach and biopsies were done to rule out H. pylori. There were no ulcers. There was a large amount of bile in the stomach which was suctioned out. The scope was retroflexed. The cardia and fundus were noted to be normal. There was no hiatal hernia noted. The scope was retracted back into the esophagus and biopsies were done of the GE junction to rule out Montgomery's. The Z line was regular. The GE junction was at 32 cm. The scope was removed and the patient was woken up and taken back to [facility] in stable condition. Follow up: 2 weeks in the office. Start carafate
[2021-07-28 08:57] VITALS: BP 137/95; PULSE 94; RESP 18; TEMP 36.5; O2SAT 98
[2021-07-28] MEDS: Lactated Ringers 1,000 ML 80 ML IV (09:18)
[2021-07-28 09:44] VITALS: BMI 58.6
--- NOTE | 2021-07-28 10:04 | STOM_PTH ---
PATIENT: Sloane Astorga LOC: [facility] U#:[id number] AGE/SX: 50/F ROOM: RE07/28/[address]: Fawn Basilio MD : 1970 BED: DIS: 07/28/2021 SPEC #: [id number] RECD: 07/28/21 17:08 STATUS: MANNIE REQ #: [id number] IRMA: 07/28/21 10:[address]: Fawn Basilio DEPT: Surgical Specimen RECD BY: Lennie Joaquin ENTERED: 07/28/21 17:09 SP TYPE: STOMACH OTHR DR: Riri Awad Tissues: 1 - STOMACH BIOPSY 2 - ESOPHAGUS BIOPSY Procedures: GROSS AND MICRO LEVEL 4 Comments: [id number]
[2021-07-28 10:20] VITALS: BP 115/86; PULSE 99; RESP 16; TEMP 36.5; O2SAT 96
--- NOTE | 2021-07-28 10:22 | W.ANESPOSTOP ---
Postoperative Evaluation Date, Time and Location Date Performed: 07/28/21 Time Performed: 10:22 Patient Location: Day [facility] Unit Vital Signs Most Recent Imported Vital Signs: Most Recent Vital Signs Temp Pulse Resp BP Pulse Ox 36.5 C 99 H 16 115/86 96 07/28/21 10:20 07/28/21 10:20 07/28/21 10:20 07/28/21 10:20 07/28/21 10:20 Pain Score Most Recent Pain Score: Most Recent Pain Score Pain Level 0 07/28/21 08:57 Assessment Mental Status: Awake (Alert & Oriented to Patient Baseline) Airway and Respiratory Function: Patent airway with normal (patient baseline) respiratory exam Cardiovascular Function: Hemodynamically Stable Hydration Status: Adequately Hydrated Nausea & Vomiting: No Nausea or Vomiting Pain: Pt. Denies Any Pain Peripheral Nerve Block: Patient did not receive a nerve block
[2021-07-28 10:46] VITALS: BP 117/87; PULSE 85; RESP 16; TEMP 36.8; O2SAT 95
[2021-07-28 11:20] VITALS: BP 118/88; PULSE 84; RESP 16; TEMP 36.7; O2SAT 95
== END 2021-07-28 11:23 | disposition home or self-care (01) ==
PROVIDERS: PCP Physician Assistant Medical; Visit Provider Surgery
PROC: 0DJ68ZZ Inspection of Stomach, Via Natural or Artificial Opening Endoscopic (ICD-10-PCS; CPT 43235; principal; 2021-07-28 10:15)
DX: R11.0 Nausea (principal); K29.60 Other gastritis without bleeding; I10 Essential (primary) hypertension; D50.0 Iron deficiency anemia secondary to blood loss (chronic); K31.89 Other diseases of stomach and duodenum; K22.89 Other specified disease of esophagus
CPT/HCPCS: 43239; 88305; J2704

== ENCOUNTER → 2021-08-17 01:30 | Outpatient (CLI) | payer MEDICAID, SELFPAY ==
--- NOTE | 2021-08-17 06:45 | DI.MRI_ITS ---
Exam(s) MR ABDOMEN WO EXAM: MR ABDOMEN WO CLINICAL HISTORY: Nausea, heart burn after cholecystectomy,k91.5 TECHNIQUE: Multiplanar multisequence MRA of the Abdomen was performed. COMPARISON: MR MR ABDOMEN WO from 05/13/[address] ABDOMEN PELVIS W from 05/13/2021 FINDINGS: Liver: No hepatic mass is seen. There is fatty infiltration of the liver. The liver is enlarged breonna suring 20 cm. Pancreas: Unremarkable. Gallbladder and Bile Ducts: Status post cholecystectomy. No biliary ductal dilatation. Adrenals: Unremarkable. Kidneys: Unremarkable. Spleen: Unremarkable. Bowel: Unremarkable. Aorta: Unremarkable. Soft Tissues: There is a small fat containing umbilical hernia. Bone: Unremarkable. Lymph Nodes: Unremarkable. IMPRESSION: 1. Hepatic steatosis and hepatomegaly. 2. Status post cholecystectomy. No biliary dilatation or choledocholithiasis. DATA REPOSITORY:
== END ==
PROVIDERS: PCP Physician Assistant Medical; Visit Provider Surgery
DX: K76.0 Fatty (change of) liver, not elsewhere classified (principal); R16.0 Hepatomegaly, not elsewhere classified; R11.0 Nausea; K91.5 Postcholecystectomy syndrome; R12 Heartburn; Z90.49 Acquired absence of other specified parts of digestive tract
CPT/HCPCS: 74181

== ENCOUNTER 2021-09-24 17:22 | Outpatient (REF) | payer MEDICAID, SELFPAY ==
[2021-09-25 12:05] LABS: COVID-19 RT-PCR UVMMC Result Negative (Negative)
== END 2021-09-24 17:23 | disposition home or self-care (01) ==
LOC: LBN 17:22
PROVIDERS: PCP Physician Assistant Medical; Visit Provider Physician Assistant Medical
DX: R42 Dizziness and giddiness (principal); Z20.822 Contact with and (suspected) exposure to COVID-19
CPT/HCPCS: U0003

== ENCOUNTER 2022-05-19 11:25 | Outpatient (CLI) | payer MEDICAID, SELFPAY ==
--- NOTE | 2022-05-19 10:00 | DI.CT_ITS ---
Exam(s) CT HEAD WO EXAM: CT HEAD WO CLINICAL HISTORY: fall, head strike, head injury, S09.90XA. TECHNIQUE: Imaging Protocol: Axial computed tomography images with coronal and sagittal reformatted images were created and reviewed COMPARISON: No exams were available for comparison FINDINGS: Ventricles and Extra axial spaces: Normal in size and morphology for the patient's age. Hemorrhage: None. Cerebral parenchyma: Normal. Midline shift: None. Brainstem/Cerebellum: Normal. Calvarium: Normal. Visualized Paranasal sinuses/Mastoids: Clear. Soft Tissues: Unremarkable. IMPRESSION: No acute intracranial process. RADIATION DOSE DELIVERED: 922.14mGy.cm Total DLP DATA REPOSITORY: All CT scans at this facility are submitted to the National Radiology Data Registry (NRDR) Dose Index Registry (DIR) with the [employer] ([employer]). RADIATION OPTIMIZATION: All CT scans at this facility use at least one of these dose optimization te chniques: automated exposure control; mA and/or kV adjustment per patient size (includes targeted exa ms where dose is matched to clinical indication); or iterative reconstruction.
--- NOTE | 2022-05-19 10:00 | DI.RAD_ITS ---
Exam(s) XR ELBOW LT COMPLETE EXAM: XR ELBOW LT COMPLETE CLINICAL HISTORY: fall, injury, M25.522. TECHNIQUE: 2D digital imaging was performed. Three views. COMPARISON: No exams were available for comparison FINDINGS: BONES: No acute fracture is present. No bony destructive lesion is seen. JOINTS: The elbow is normally aligned. No joint effusion is seen. SOFT TISSUE: Normal. IMPRESSION: Unremarkable radiographs of the left elbow. DATA REPOSITORY: RADIATION DOSE DELIVERED:
== END 2022-05-19 11:45 ==
LOC: DI 11:26
PROVIDERS: PCP Physician Assistant Medical; Visit Provider Physician Assistant
DX: S09.8XXA Other specified injuries of head, initial encounter (principal); W19.XXXA Unspecified fall, initial encounter; M25.522 Pain in left elbow
CPT/HCPCS: 70450; 73080

== ENCOUNTER 2022-06-20 11:57 | Emergency (ER) | payer MEDICAID, SELFPAY ==
[2022-06-20 12:05] VITALS: BP 140/90; RESP 105; TEMP 36.8; O2SAT 95
[2022-06-20 14:50] VITALS: RESP 16
--- NOTE | 2022-06-20 15:11 | W.ED.GENAD ---
Discharge Plan Disposition Patient Disposition: Home Condition: Stable Discharge Details Clinical Impression: Medication adverse effect Primary Care Provider: Riri Awad ED Provider: Manjeet Maloney Home Meds and New Rx's Prescriptions: Continued omeprazole 40 mg capsule,delayed release(DR/EC) 40 mg PO DAILY Qty: 90 3RF ondansetron HCl 4 mg tablet 4 mg PO Q6H PRN (Reason: nausea and vomiting) Qty: 14 1RF prochlorperazine maleate 5 mg tablet See Rx Instructions PO TID PRN (Reason: headaches) Qty: 30 3RF Rx Instructions: 5-10 mg orally three times a day PRN; acetaminophen [Tylenol Extra Strength] 500 mg tablet 1,000 mg PO Q6H PRN prednisone 20 mg tablet 20 mg PO BID Qty: 10 0RF cyclobenzaprine 10 mg tablet 10 mg PO Q8H Qty: 10 0RF Mirena 20 mcg/24 hours (7 yrs) 52 mg intrauterine device 1 device intrauterine ONCE Rx Instructions: as a single dose meclizine 12.5 mg tablet 12.5 mg PO TID PRN sucralfate 1 gram tablet See Rx Instructions .ROUTE .COMPLEX Qty: 90 3RF Dose Instruction: TAKE ONE TABLET BY MOUTH THREE TIMES A DAY 30 MIN BEFORE BREAKFAST, LUNCH AND DINNER Rx Instructions: TAKE ONE TABLET BY MOUTH THREE TIMES A DAY 30 MIN BEFORE BREAKFAST, LUNCH AND DINNER hydrochlorothiazide 25 mg tablet 25 mg PO DAILY Humira(CF) Pen 40 mg/0.4 mL pen injector kit 40 mg SUBCUT Q2W Patient Comments: pt states not taking lisinopril 10 mg Tablet 10 mg PO HS Discontinued Taltz Autoinjector 80 mg/mL Auto-Injector 80 mg SUBCUT USEASDIRECTD Discharge Instructions Additional Instructions: Please stop using Taltz. Please follow-up with your sequencing machine operator. Call today to schedule follow-up. Please contact your primary care physician to arrange follow-up. Return to the ER immediately for any worsening or new concerning symptoms. Referrals: Riri Awad PA [Primary Care Provider] - Medical Decision Making 51-year-old female here with inflammation at Taltz injection sites bilateral anterior thighs. Patient also with an episode of right upper anterior chest discomfort and difficulty swallowing earlier today that has now resolved. Patient is tachycardic, normal blood pressure, airway intact. I spoke with pharmacist who notes high rate (17%) of localized reaction with this injection. Spoke with sequencing machine operator on[place] [facility] discussed [place] presentation course, she recommends applying ice to the area bilaterally and discontinuation of medication. She recommends patient call to arrange timely follow-up. Patient persistently tachycardic here. I did review prior medical record and she has been tachycardic in the past on prior ED visits. Possible anxiety. Consider other etiologies and will check screening labs including CK, CBC and chemistry and provide IV fluid bolus. Screening EKG was reviewed and interpreted by me: Please report, sinus tachycardia 118 bpm. Lab Data Lab results reviewed: Yes I reviewed the patient's lab results. Labs: Laboratory Tests Range/Units 06/20/22 16:42 WBC (4.4-10.8) 10^3/uL 7.87 RBC (3.93-5.22) 10^6/uL 5.13 Hgb (11.2-15.7) g/dL 16.5 H Hct (36.0-46.0) % 46.9 H MCV (80-95) fL 91 MCH (27.0-33.0) pg 32.2 MCHC (32.0-36.0) % 35.2 RDW (11.7-14.6) % 13.8 Plt Count (130-400) 10^3/uL 321 MPV (8.0-11.0) fL 9.1 Immature Gran % 0.4 Neutrophils % 51.3 Lymphocytes % 37.1 Monocytes % 8.4 Eosinophils % 2.2 Basophils % 0.6 Nucleated RBC % (0.0-0.3) % 0.0 Absolute Neutrophils (1.2-6.7) 10^3/uL 4.04 Absolute Lymphocytes (1.2-3.4) 10^3/uL 2.92 Absolute Monocytes (0.1-0.8) 10^3/uL 0.66 Absolute Eosinophils (0.0-0.7) 10^3/uL 0.17 Absolute Basophils (0.0-0.2) 10^3/uL 0.05 HPI General Mode of arrival: ambulatory. Date/Time Provider Initiated Documentation: 06/20/22 12:57. Limitations to Documentation: no limitations. Information obtained by: patient. HPI Narrative: 51-year-old female with history of psoriasis, injected new biologic Taltz into bilateral anterior thighs about 2 weeks ago. She notes she subsequently developed redness and bruising at injection sites a few days later. Symptoms have persisted. Today she notes she was feeling quite anxious and had difficulty swallowing and had some discomfort in her right upper chest. This discomfort has since resolved since being here. No associated shortness of breath. No associated fever. Related Data Home Medications Medication Instructions Recorded Confirmed lisinopril 10 mg tablet 10 mg PO HS 06/28/19 06/20/22 adalimumab 40 mg/0.4 mL 40 mg subcut Q2W 05/13/21 06/13/22 subcutaneous pen kit (Humira(CF) Pen) hydrochlorothiazide 25 mg tablet 25 mg PO DAILY 05/13/21 06/20/22 acetaminophen 500 mg tablet 1,000 mg PO Q6H PRN 05/19/21 06/20/22 (Tylenol Extra Strength) omeprazole 40 mg capsule,delayed 40 mg PO DAILY #90 caps 07/28/21 06/20/22 release ondansetron HCl 4 mg tablet 4 mg PO Q6H PRN nausea and 07/28/21 06/20/22 vomiting #14 tabs levonorgestrel 21 mcg/24 hours (8 1 device intrauterine ONCE 11/05/21 06/20/22 yrs) 52 mg intrauterine device (Mirena) meclizine 12.5 mg tablet 12.5 mg PO TID PRN 11/05/21 06/20/22 prochlorperazine maleate 5 mg See Rx Instructions PO TID PRN 12/23/21 06/20/22 tablet headaches #30 tabs cyclobenzaprine 10 mg tablet 10 mg PO Q8H #10 tabs 06/13/22 06/20/22 prednisone 20 mg tablet 20 mg PO BID #10 tabs 06/13/22 06/20/22 sucralfate 1 gram tablet See Rx Instructions .Route 06/13/22 06/20/22 .COMPLEX #90 tabs Previous Rx's Medication Instructions Recorded omeprazole 40 mg capsule,delayed 40 mg PO DAILY #90 caps 07/28/21 release ondansetron HCl 4 mg tablet 4 mg PO Q6H PRN nausea and 07/28/21 vomiting #14 tabs prochlorperazine maleate 5 mg See Rx Instructions PO TID PRN 12/23/21 tablet headaches #30 tabs cyclobenzaprine 10 mg tablet 10 mg PO Q8H #10 tabs 06/13/22 prednisone 20 mg tablet 20 mg PO BID #10 tabs 06/13/22 sucralfate 1 gram tablet See Rx Instructions .Route 06/13/22 .COMPLEX #90 tabs Allergies Allergy/AdvReac Type Severity Reaction Status Date / Time lactose Allergy Mild Other (See Unverified 06/17/22 11:34 Comment) Penicillins Allergy Unknown Skin Rash Unverified 06/17/22 11:34 General Stated Complaint: GenMedical ALBINO: 3 Review of Systems All systems reviewed & are unremarkable except as noted in HPI and below Constitutional Constitutional: Denies fever(s) Cardiovascular Cardiovascular: Reports as per HPI Respiratory Respiratory: Reports as per HPI PFSH All Active Problems Medication adverse effect (Acute) COVID-19 (Acute) Heart burn (Acute) Nausea (Acute) Post-cholecystectomy syndrome (Acute) Migraine headache without aura (Acute) Medical History Anemia due to chronic blood loss (12/11/12) Depression Dizziness Family distress Former smoker HTN (hypertension) Hx of sleep apnea Menometrorrhagia (12/11/12) Migraine headache Neck pain on right side Obesity Pancreatitis Psoriasis PTSD (post-traumatic stress disorder) Snoring Tobacco use Unresolved grief Vertigo Surgical History History of carpal tunnel release of both wrists History of section x5 History of cholecystectomy Hx of appendectomy Hx of tonsillectomy S/P laparoscopic cholecystectomy (~05/26/21) Chronic cholecystitis and Cholelithiasis Social History Smoking/Tobacco Use Status: Former Tobacco Use Quit Date: 02/20/14 Smoking risk assessment performed?: Yes Alcohol Intake: current Alcohol Intake frequency: holidays/special occasions only Drug use: Never Substance use type: does not use Current gender identity: female Do you feel safe at home: Yes Do you feel safe in your relationship?: Yes Exam Const General: cooperative and no acute distress HENMT Mouth: moist mucous membranes Eyes Conjunctivae: normal conjunctivae Sclera: normal sclerae Neck Neck: trachea midline and supple Resp Auscultation: clear to auscultation bilaterally, no rales, no rhonchi and no wheezes Cardio Rate: regular rate and not tachycardic Rhythm: regular rhythm GI Palpation: soft, not firm, no guarding, no masses, not rigid and nontender Skin General skin exam: no induration Rashes: rashes noted (See extremity exam) Neuro General: patient alert, patient awake and tone normal Extrem General: other (Bilateral thighs with 5 cm circular erythema surrounding injection site) Psych Appearance: grossly normal Mental Status: mental status grossly normal Speech and Movement: speech and movement normal Course Vital Signs Vital signs: Vital Signs Temperature 36.8 C 06/20/22 12:05 Respiratory Rate 105 H 06/20/22 12:05 Blood Pressure 140/90 06/20/22 12:05 Pulse Oximetry 95 06/20/22 12:05 Temperature 36.8 C 06/20/22 12:05 Temperature Source Oral 06/20/22 12:05 Respiratory Rate 16 06/20/22 14:50 Respiratory Effort Normal, Non-Labored 06/20/22 14:50 Respiratory Depth Normal 06/20/22 14:50 Respiratory Pattern Normal 06/20/22 14:50 Blood Pressure 140/90 06/20/22 12:05 Blood Pressure Position Sitting 06/20/22 12:05 Pulse Oximetry 95 06/20/22 12:05 Oxygen Delivery Method Room Air 06/20/22 12:05 Oxygen Flow Rate 0 06/20/22 12:05 Pain Level 3 06/20/22 12:05
[2022-06-20 15:39] VITALS: BP 136/99; PULSE 116; RESP 16; TEMP 36.9; O2SAT 98
--- NOTE | 2022-06-20 15:45 | RT.EKG_ITS ---
APPROVED REPORT Exam: Resting ECG Reason for Exam: tachycardia Patient Location: E HR:118 bpm ECG Measurements Heart Rate 118 AXIS MI 168 P 50 QRSd 83 QRS 2 QT 320 T 49 QTc 449 Conclusion Sinus tachycardia...rate> 99
[2022-06-20 17:02] LABS: Abs Immature Grans 0.03 10^3/uL (0.0-0.06); Absolute Basophil Count 0.05 10^3/uL (0.0-0.2); Absolute Eosinophil Count 0.17 10^3/uL (0.0-0.7); Absolute Lymphocyte Count 2.92 10^3/uL (1.2-3.4); Absolute Monocyte Count 0.66 10^3/uL (0.1-0.8); Absolute Neutrophil Count 4.04 10^3/uL (1.2-6.7); Basophils % 0.6; Eosinophils % 2.2; HCT 46.9 % (36.0-46.0); HGB 16.5 g/dL (11.2-15.7); Immature Grans % 0.4; Lymphocytes % 37.1; MCH 32.2 pg (27.0-33.0); MCHC 35.2 % (32.0-36.0); MCV 91 fL (80-95); MPV 9.1 fL (8.0-11.0); Monocytes % 8.4; Neutrophils % 51.3; Platelet Count 321 10^3/uL (130-400); RBC 5.13 10^6/uL (3.93-5.22); RDW 13.8 % (11.7-14.6); RDW-SD 46.4 fL; WBC 7.87 10^3/uL (4.4-10.8)
[2022-06-20 17:14] VITALS: BP 137/105; PULSE 117; RESP 18; TEMP 36.8; O2SAT 95
[2022-06-20 17:24] LABS: ALT 72 U/L (14-59); AST 53 U/L (15-37); Albumin 4.5 g/dL (3.4-5.0); Alkaline Phosphatase 87 U/L (46-116); Anion Gap 11.7 mmol/L (3-11); BUN 12 mg/dL (7-18); Bilirubin, Total 1.1 mg/dL (0.2-1.0); CO2 26.3 mmol/L (21.0-32.0); CREATININE 0.7 mg/dL (0.55-1.02); Calcium 9.7 mg/dL (8.5-10.1); Chloride 95 mmol/L (98-107); Estimated GFR 105.95 (mL/min/1.73m2); Glucose 267 mg/dL (74-106); Potassium 3.4 mmol/L (3.5-5.1); Sodium 133 mmol/L (136-145); Total Protein 8.5 g/dL (6.4-8.2); Troponin I < 50 ng/L (<or=60)
[2022-06-20 17:43] LABS: D-Dimer 241 ng/mlFEU (<500)
[2022-06-20 17:59] LABS: TSH (W/Ref FT4) 1.94 uIU/mL (0.36-3.74)
--- NOTE | 2022-06-20 18:21 | W.EDPROG ---
Date of service: 06/20/22 Time of Service: 18:21 Medical Decision Making Resting comfortably no acute distress. No shortness of breath no chest pain. Troponin and D-dimer negative. With her primary care physician. Home care instructions and return precautions given Sign Out Sign Out Data: Sign Out Comment: Patient here with likely localized reaction to new biologic injection bilateral anterior thighs. Patient found to be tachycardic of unclear etiology. Follow-up on labs and reassess patient for disposition. Last updated by Manjeet Maloney MD at 06/20/22 17:25 Discharge Plan Disposition Patient Disposition: Home Condition: Stable Discharge Details Clinical Impression: Medication adverse effect Primary Care Provider: Riri Awad ED Provider: Dereje Ferris Home Meds and New Rx's Prescriptions: Continued omeprazole 40 mg capsule,delayed release(DR/EC) 40 mg PO DAILY Qty: 90 3RF ondansetron HCl 4 mg tablet 4 mg PO Q6H PRN (Reason: nausea and vomiting) Qty: 14 1RF prochlorperazine maleate 5 mg tablet See Rx Instructions PO TID PRN (Reason: headaches) Qty: 30 3RF Rx Instructions: 5-10 mg orally three times a day PRN; acetaminophen [Tylenol Extra Strength] 500 mg tablet 1,000 mg PO Q6H PRN prednisone 20 mg tablet 20 mg PO BID Qty: 10 0RF cyclobenzaprine 10 mg tablet 10 mg PO Q8H Qty: 10 0RF Mirena 20 mcg/24 hours (7 yrs) 52 mg intrauterine device 1 device intrauterine ONCE Rx Instructions: as a single dose meclizine 12.5 mg tablet 12.5 mg PO TID PRN sucralfate 1 gram tablet See Rx Instructions .ROUTE .COMPLEX Qty: 90 3RF Dose Instruction: TAKE ONE TABLET BY MOUTH THREE TIMES A DAY 30 MIN BEFORE BREAKFAST, LUNCH AND DINNER Rx Instructions: TAKE ONE TABLET BY MOUTH THREE TIMES A DAY 30 MIN BEFORE BREAKFAST, LUNCH AND DINNER hydrochlorothiazide 25 mg tablet 25 mg PO DAILY Humira(CF) Pen 40 mg/0.4 mL pen injector kit 40 mg SUBCUT Q2W Patient Comments: pt states not taking lisinopril 10 mg Tablet 10 mg PO HS Discontinued Taltz Autoinjector 80 mg/mL Auto-Injector 80 mg SUBCUT USEASDIRECTD Discharge Instructions Additional Instructions: Please stop using Taltz. Please follow-up with your sanitation manager. Call today to schedule follow-up. Please contact your primary care physician to arrange follow-up. Return to the ER immediately for any worsening or new concerning symptoms. Referrals: Riri Awad PA [Primary Care Provider] -
[2022-06-20 18:40] VITALS: BP 167/99; PULSE 120; RESP 14; TEMP 36.8; O2SAT 95
[2022-06-20 18:49] VITALS: BP 167/99; PULSE 120; RESP 14; TEMP 36.8; O2SAT 95
[2022-06-23 14:33] LABS: Creatine Kinase 75 U/L (26 - 192)
== END 2022-06-20 18:57 | disposition home or self-care (01) ==
PROVIDERS: Student in an Organized Health Care Education/Training Program; Emergency Provider Emergency Medicine; PCP Physician Assistant Medical
DX: T50.905A Adverse effect of unspecified drugs, medicaments and biological substances, initial encounter (principal); R00.0 Tachycardia, unspecified
CPT/HCPCS: 36415; 80053; 93005; 99284; 82550; 82552; 83735; 84443; 84484; 85025; 85379; 93010; 99283

== ENCOUNTER 2022-06-21 15:41 | Outpatient (REF) | payer MEDICAID, SELFPAY ==
[2022-06-21 19:22] LABS: Cholesterol 205 mg/dL (<200); Ferritin 206 ng/mL (8-252); HDL Cholesterol 34 mg/dL (40-60); Triglyceride 533 mg/dL (<150)
[2022-06-21 19:39] LABS: LDL CHOLESTEROL 102 mg/dL (<100)
[2022-06-21 19:56] LABS: Hemoglobin A1C 10.2 % (<5.7)
== END 2022-06-21 15:42 | disposition home or self-care (01) ==
LOC: NCHCN 15:41
PROVIDERS: PCP Physician Assistant Medical; Visit Provider Physician Assistant Medical
DX: I10 Essential (primary) hypertension (principal); R73.9 Hyperglycemia, unspecified; K76.0 Fatty (change of) liver, not elsewhere classified
CPT/HCPCS: 80061; 83721; 82728; 83036

== ENCOUNTER 2022-06-22 09:57 | Emergency (ER) | payer MEDICAID, SELFPAY ==
--- NOTE | 2022-06-22 10:00 | RT.EKG_ITS ---
APPROVED REPORT Exam: Resting ECG Reason for Exam: dizziness Patient Location: E HR:115 bpm ECG Measurements Heart Rate 115 AXIS CO 161 P 49 QRSd 86 QRS -4 QT 328 T 44 QTc 455 Conclusion Sinus tachycardia...rate> 99 Consider anterior infarct...Q >30mS in V2-V5. Sinus. Normal axis. No STEMI. I have reviewed and interpreted ECG and agree with software generated interpretation.
[2022-06-22 10:05] VITALS: BP 149/93; PULSE 121; RESP 18; TEMP 36.7; O2SAT 96
[2022-06-22 10:32] LABS: BE (Venous) 5 mmol/L (-2-3); HCO3 (Venous) 29 mmol/L (23-28); O2 Sat (Venous) 85 %; TCO2 (Venous) 25 mmol/L (24-29); pCO2 (Venous) 41 mmHg (41-51); pH (Venous) 7.45 (7.31-7.41); pO2 (Venous) 47 mmHg
[2022-06-22 10:36] LABS: Abs Immature Grans 0.04 10^3/uL (0.0-0.06); Absolute Basophil Count 0.06 10^3/uL (0.0-0.2); Absolute Eosinophil Count 0.16 10^3/uL (0.0-0.7); Absolute Lymphocyte Count 1.94 10^3/uL (1.2-3.4); Absolute Monocyte Count 0.67 10^3/uL (0.1-0.8); Absolute Neutrophil Count 4.95 10^3/uL (1.2-6.7); Basophils % 0.8; HCT 43.4 % (36.0-46.0); HGB 15.2 g/dL (11.2-15.7); Immature Grans % 0.5; Lymphocytes % 24.8; MCH 31.7 pg (27.0-33.0); MCV 90 fL (80-95); MPV 9.1 fL (8.0-11.0); Monocytes % 8.6; Neutrophils % 63.3; Platelet Count 283 10^3/uL (130-400); RDW 13.7 % (11.7-14.6); RDW-SD 45.5 fL; WBC 7.82 10^3/uL (4.4-10.8)
[2022-06-22] MEDS: Lactated Ringers 1,000 ML 1000 ML IV (10:39)
--- NOTE | 2022-06-22 11:51 | ED.GENADUL_ITS ---
Discharge Plan Disposition Patient Disposition: Home Discharge Details Clinical Impression: Diabetes mellitus, Hypokalemia Primary Care Provider: Riri Awad ED Provider: Lennie Sahu Home Meds and New Rx's Prescriptions: New metformin 500 mg tablet 500 mg PO BID Qty: 30 0RF Continued omeprazole 40 mg capsule,delayed release(DR/EC) 40 mg PO DAILY Qty: 90 3RF ondansetron HCl 4 mg tablet 4 mg PO Q6H PRN (Reason: nausea and vomiting) Qty: 14 1RF prochlorperazine maleate 5 mg tablet See Rx Instructions PO TID PRN (Reason: headaches) Qty: 30 3RF Rx Instructions: 5-10 mg orally three times a day PRN; acetaminophen [Tylenol Extra Strength] 500 mg tablet 1,000 mg PO Q6H PRN prednisone 20 mg tablet 20 mg PO BID Qty: 10 0RF cyclobenzaprine 10 mg tablet 10 mg PO Q8H Qty: 10 0RF Mirena 20 mcg/24 hours (7 yrs) 52 mg intrauterine device 1 device intrauterine ONCE Rx Instructions: as a single dose meclizine 12.5 mg tablet 12.5 mg PO TID PRN sucralfate 1 gram tablet See Rx Instructions .ROUTE .COMPLEX Qty: 90 3RF Dose Instruction: TAKE ONE TABLET BY MOUTH THREE TIMES A DAY 30 MIN BEFORE BREAKFAST, LUNCH AND DINNER Rx Instructions: TAKE ONE TABLET BY MOUTH THREE TIMES A DAY 30 MIN BEFORE BREAKFAST, LUNCH AND DINNER hydrochlorothiazide 25 mg tablet 25 mg PO DAILY Humira(CF) Pen 40 mg/0.4 mL pen injector kit 40 mg SUBCUT Q2W Patient Comments: pt states not taking lisinopril 10 mg Tablet 20 mg PO HS Discharge Instructions Instructions: Gestational Diabetes Diet (DC), Hypokalemia (ED), Diabetes and Nutrition (ED), Diabetes and Exercise (ED) Additional Instructions: Start taking your metformin Take metformin at night to start for the next 48 hours increase to twice a day after that time if tolerated Refer to enclosed packet information Follow-up with your doctor to set up a follow-up appointment Stand Alone Forms: Work Release Referrals: Riri Awad PA [Primary Care Provider] - 1 day Medical Decision Making 51-year-old female presents with vague presyncopal symptoms On assessment of her prior evaluation it does look like her blood sugar was 267 and she has had polydipsia and polyphagia at home Blood sugar is 262 here and her A1c is 10 which her doctor ordered and follow-up I suspect she has type 2 diabetes, will initiate metformin 500 mg twice daily She also has hypokalemia, 3.2, will give 40 mEq of potassium EKG without significant acute abnormality, feeling symptomatically improved Tachycardia resolved after fluids, suspect tachycardia is related to hyperglycemia No evidence of diabetic ketoacidosis Patient's PCP was also concern for diarrhea diabetes We will follow-up closely HPI General Date/Time Provider Initiated Documentation: 06/22/22 09:59 . HPI Narrative: This 51-year-old female reports that she felt lightheaded at work today and was tachycardic which is why she presents. She states she has been evaluated previously for similar symptoms. Initially symptoms were attributed to immuno logic administration 2 weeks ago. States she has had persistent tachycardia since initial diagnosis. Denies any chest pain or shortness of breath. Denies any chance of . Does report she had a full cardiac work-up during her last evaluation. Denies any fever or chills. Had lisinopril increased yesterday. Related Data Home Medications Medication Instructions Recorded Confirmed lisinopril 10 mg tablet 20 mg PO HS 06/28/19 06/22/22 adalimumab 40 mg/0.4 mL 40 mg subcut Q2W 05/13/21 06/22/22 subcutaneous pen kit (Humira(CF) Pen) hydrochlorothiazide 25 mg tablet 25 mg PO DAILY 05/13/21 06/22/22 acetaminophen 500 mg tablet 1,000 mg PO Q6H PRN 05/19/21 06/22/22 (Tylenol Extra Strength) omeprazole 40 mg capsule,delayed 40 mg PO DAILY #90 caps 07/28/21 06/22/22 release ondansetron HCl 4 mg tablet 4 mg PO Q6H PRN nausea and 07/28/21 06/22/22 vomiting #14 tabs levonorgestrel 21 mcg/24 hours (8 1 device intrauterine ONCE 11/05/21 06/22/22 yrs) 52 mg intrauterine device (Mirena) meclizine 12.5 mg tablet 12.5 mg PO TID PRN 11/05/21 06/22/22 prochlorperazine maleate 5 mg See Rx Instructions PO TID PRN 12/23/21 06/22/22 tablet headaches #30 tabs cyclobenzaprine 10 mg tablet 10 mg PO Q8H #10 tabs 06/13/22 06/22/22 prednisone 20 mg tablet 20 mg PO BID #10 tabs 06/13/22 06/22/22 sucralfate 1 gram tablet See Rx Instructions .Route 06/13/22 06/22/22 .COMPLEX #90 tabs metformin 500 mg tablet 500 mg PO BID #30 tabs 06/22/22 Previous Rx's Medication Instructions Recorded omeprazole 40 mg capsule,delayed 40 mg PO DAILY #90 caps 07/28/21 release ondansetron HCl 4 mg tablet 4 mg PO Q6H PRN nausea and 07/28/21 vomiting #14 tabs prochlorperazine maleate 5 mg See Rx Instructions PO TID PRN 12/23/21 tablet headaches #30 tabs cyclobenzaprine 10 mg tablet 10 mg PO Q8H #10 tabs 06/13/22 prednisone 20 mg tablet 20 mg PO BID #10 tabs 06/13/22 sucralfate 1 gram tablet See Rx Instructions .Route 06/13/22 .COMPLEX #90 tabs metformin 500 mg tablet 500 mg PO BID #30 tabs 06/22/22 Allergies Allergy/AdvReac Type Severity Reaction Status Date / Time lactose Allergy Mild Other (See Unverified 06/22/22 10:04 Comment) Penicillins Allergy Unknown Skin Rash Unverified 06/22/22 10:04 General Stated Complaint: Dizzy/Sync ALBINO: 3 PFSH All Active Problems (Updated 06/22/22 @ 12:39 by ZENY Geiger) Medication adverse effect (Acute) Diabetes mellitus (Chronic) Hypokalemia (Acute) COVID-19 (Acute) Heart burn (Acute) Nausea (Acute) Post-cholecystectomy syndrome (Acute) Migraine headache without aura (Acute) Medical History Anemia due to chronic blood loss (12/11/12) Depression Dizziness Family distress Former smoker HTN (hypertension) Hx of sleep apnea Menometrorrhagia (12/11/12) Migraine headache Neck pain on right side Obesity Pancreatitis Psoriasis PTSD (post-traumatic stress disorder) Snoring Tobacco use Unresolved grief Vertigo Surgical History History of carpal tunnel release of both wrists History of section x5 History of cholecystectomy Hx of appendectomy Hx of tonsillectomy S/P laparoscopic cholecystectomy (~05/26/21) Chronic cholecystitis and Cholelithiasis Social History Smoking/Tobacco Use Status: Former Tobacco Use Quit Date: 02/20/14 Smoking risk assessment performed?: Yes Alcohol Intake: current Alcohol Intake frequency: holidays/special occasions only Drug use: Never Substance use type: does not use Current gender identity: female Do you feel safe at home: Yes Do you feel safe in your relationship?: Yes Exam Narrative Exam Narrative: Patient is alert, oriented, calm, cooperative, pupils equal round reactive to light and accommodation, lungs clear to auscultation bilaterally, no respiratory distress, cardiac rate rhythm within normal limits No abdominal tenderness, no pallor, fully alert and oriented x4, cranial nerves II through XII intact, ambulatory with steady gait Course Vital Signs Vital signs: Vital Signs Temperature 36.7 C 06/22/22 10:05 Pulse 121 H 06/22/22 10:05 Respiratory Rate 18 06/22/22 10:05 Blood Pressure 149/93 H 06/22/22 10:05 Pulse Oximetry 96 06/22/22 10:05 Temperature 36.7 C 06/22/22 10:05 Temperature Source Oral 06/22/22 10:05 Pulse 121 H 06/22/22 10:05 Respiratory Rate 18 06/22/22 10:05 Respiratory Effort Normal 06/22/22 10:31 Respiratory Depth Normal 06/22/22 10:31 Respiratory Pattern Normal 06/22/22 10:31 Blood Pressure 149/93 H 06/22/22 10:05 Pulse Oximetry 96 06/22/22 10:05 Oxygen Delivery Method Room Air 06/22/22 10:05 Oxygen Flow Rate 0 06/22/22 10:05 Lab/Test Results Lab/Test Results: Laboratory Tests Range/Units 06/22/22 06/22/22 10:25 10:25 WBC (4.4-10.8) 10^3/uL 7.82 RBC (3.93-5.22) 10^6/uL 4.80 Hgb (11.2-15.7) g/dL 15.2 Hct (36.0-46.0) % 43.4 MCV (80-95) fL 90 MCH (27.0-33.0) pg 31.7 MCHC (32.0-36.0) % 35.0 RDW (11.7-14.6) % 13.7 Plt Count (130-400) 10^3/uL 283 MPV (8.0-11.0) fL 9.1 Immature Gran % 0.5 Neutrophils % 63.3 Lymphocytes % 24.8 Monocytes % 8.6 Eosinophils % 2.0 Basophils % 0.8 Nucleated RBC % (0.0-0.3) % 0.0 Absolute Neutrophils (1.2-6.7) 10^3/uL 4.95 Absolute Lymphocytes (1.2-3.4) 10^3/uL 1.94 Absolute Monocytes (0.1-0.8) 10^3/uL 0.67 Absolute Eosinophils (0.0-0.7) 10^3/uL 0.16 Absolute Basophils (0.0-0.2) 10^3/uL 0.06 VBG pH (7.31-7.41) 7.45 H VBG pCO2 (41-51) mmHg 41 VBG pO2 mmHg 47 VBG HCO3 (23-28) mmol/L 29 H VBG Total CO2 (24-29) mmol/L 25 VBG O2 Saturation % 85 VBG Base Excess (-2-3) mmol/L 5 H
[2022-06-22 12:23] LABS: Anion Gap 9.4 mmol/L (3-11); BUN 9 mg/dL (7-18); CO2 26.6 mmol/L (21.0-32.0); CREATININE 0.7 mg/dL (0.55-1.02); Calcium 9.5 mg/dL (8.5-10.1); Chloride 98 mmol/L (98-107); Estimated GFR 105.95 (mL/min/1.73m2); Glucose 284 mg/dL (74-106); Potassium 3.2 mmol/L (3.5-5.1); Sodium 134 mmol/L (136-145)
[2022-06-22 12:28] VITALS: BP 125/77; PULSE 100; RESP 16; O2SAT 95
[2022-06-22] MEDS: Potassium Chloride 20 MEQ TABCR 40 MEQ PO (13:05)
[2022-06-22 13:10] VITALS: BP 135/83; PULSE 78; RESP 16; O2SAT 94
== END 2022-06-22 13:11 | disposition home or self-care (01) ==
PROVIDERS: Emergency Provider Physician Assistant; PCP Physician Assistant Medical
DX: E11.9 Type 2 diabetes mellitus without complications (principal); E87.6 Hypokalemia; R42 Dizziness and giddiness; R00.0 Tachycardia, unspecified
CPT/HCPCS: 80048; 82805; 93005; 96360; 99283; 85025; 93010; 99284

== ENCOUNTER 2022-06-24 15:32 | Outpatient (CLI) | payer MEDICAID, SELFPAY ==
--- NOTE | 2022-06-24 13:11 | DI.RAD_ITS ---
Exam(s) XR LUMBAR SPINE COMPLETE EXAM: XR LUMBAR SPINE COMPLETE CLINICAL HISTORY: LT LUMBAR RADICULOPATHY, M54.16. TECHNIQUE: 2D digital imaging was performed. COMPARISON: CT CT ABDOMEN PELVIS W from 05/13/2021 FINDINGS: Five views: No evidence of fracture or listhesis nor pars defects. There is advanced disc space narrowing at L4-5 level, similar to CT scan 05/13/2021. Other disc spac es continue to exhibit normal height. Mild facet joint degenerative changes. Sacroiliac joints unre markable. IUD noted in the pelvis. IMPRESSION: Advanced disc space narrowing at L4-5 level noted. Sub endplate marrow density consistent with eithe r Modic type 1 or type 3 Modic changes. The above findings are unchanged from an abdominal CT scan o f 05/13/2021. DATA REPOSITORY: RADIATION DOSE DELIVERED:
== END 2022-06-24 15:52 ==
LOC: DI 15:33
PROVIDERS: PCP Physician Assistant Medical; Visit Provider Physician Assistant Medical
DX: M54.16 Radiculopathy, lumbar region (principal)
CPT/HCPCS: 72110

== ENCOUNTER 2022-07-14 15:08 | Outpatient (CLI) | payer MEDICAID, SELFPAY ==
[2022-07-14 15:05] LABS: Abs Immature Grans 0.01 10^3/uL (0.0-0.06); Absolute Basophil Count 0.03 10^3/uL (0.0-0.2); Absolute Eosinophil Count 0.16 10^3/uL (0.0-0.7); Absolute Lymphocyte Count 1.91 10^3/uL (1.2-3.4); Absolute Monocyte Count 0.47 10^3/uL (0.1-0.8); Absolute Neutrophil Count 3.46 10^3/uL (1.2-6.7); Basophils % 0.5; Eosinophils % 2.6; HCT 38.6 % (36.0-46.0); HGB 13.3 g/dL (11.2-15.7); Immature Grans % 0.2; Lymphocytes % 31.6; MCH 32.9 pg (27.0-33.0); MCHC 34.5 % (32.0-36.0); MCV 96 fL (80-95); Monocytes % 7.8; Neutrophils % 57.3; Platelet Count 284 10^3/uL (130-400); RBC 4.04 10^6/uL (3.93-5.22); RDW 14.6 % (11.7-14.6); RDW-SD 50.7 fL; WBC 6.04 10^3/uL (4.4-10.8)
[2022-07-14 15:26] LABS: ALT 80 U/L (14-59); AST 48 U/L (15-37); Albumin 4.2 g/dL (3.4-5.0); Alkaline Phosphatase 75 U/L (46-116); Anion Gap 8.6 mmol/L (3-11); BUN 15 mg/dL (7-18); Bilirubin, Total 0.9 mg/dL (0.2-1.0); CO2 26.4 mmol/L (21.0-32.0); CREATININE 0.7 mg/dL (0.55-1.02); Calcium 9.3 mg/dL (8.5-10.1); Chloride 103 mmol/L (98-107); Estimated GFR 105.95 (mL/min/1.73m2); Glucose 119 mg/dL (74-106); Potassium 3.8 mmol/L (3.5-5.1); Sodium 138 mmol/L (136-145); Total Protein 7.7 g/dL (6.4-8.2)
[2022-07-18 09:41] LABS: HBs Antibody, Quant <3.1 mIU/mL (See Note); Hepatitis B Surface Ab Negative (See Note)
[2022-07-18 09:49] LABS: Hepatitis B Surface Ag Negative (Negative)
[2022-07-18 10:19] LABS: Hepatitis C Ab w Rflx HCV PCR Negative (Negative)
[2022-07-18 10:33] LABS: Hep B Core Antibody Negative (Negative)
[2022-07-19 10:59] LABS: TB Interpretation Negative (Negative); TB1 Ag minus Nil 0.02 IU/ml; TB2 Ag minus Nil 0.02 IU/mL
== END 2022-07-14 15:09 | disposition home or self-care (01) ==
LOC: LBO 15:09
PROVIDERS: PCP Physician Assistant Medical; Visit Provider Physician Assistant
DX: Z51.81 Encounter for therapeutic drug level monitoring (principal)
CPT/HCPCS: 36415; 80053; 86704; 86706; 86803; 87340; 85025; 86480

== ENCOUNTER 2022-11-07 10:23 | Outpatient (CLI) | payer MEDICAID, SELFPAY ==
--- NOTE | 2022-11-07 10:15 | RT.EKG_ITS ---
APPROVED REPORT Exam: Resting ECG Reason for Exam: chest discomfort Patient Location: O HR:72 bpm ECG Measurements Heart Rate 72 AXIS [place] 183 P 49 QRSd 87 QRS 35 QT 395 T 54 QTc 433 Conclusion Sinus rhythm...normal P axis, V-rate 50- 99 Normal Electrocardiogram
== END 2022-11-07 10:24 | disposition home or self-care (01) ==
LOC: DI.CM 10:23
PROVIDERS: PCP Physician Assistant Medical; Visit Provider Nurse Practitioner Family
DX: R07.89 Other chest pain (principal)
CPT/HCPCS: 93010

== ENCOUNTER 2022-11-07 14:43 | Outpatient (CLI) | payer MEDICAID, SELFPAY ==
[2022-11-07 13:15] LABS: HCT 42.9 % (36.0-46.0); HGB 14.3 g/dL (11.2-15.7); MCH 31.8 pg (27.0-33.0); MCHC 33.3 % (32.0-36.0); MCV 95 fL (80-95); MPV 8.7 fL (8.0-11.0); Platelet Count 272 10^3/uL (130-400); RDW 13.5 % (11.7-14.6); RDW-SD 47.3 fL; WBC 5.97 10^3/uL (4.4-10.8)
[2022-11-07 13:59] LABS: ALT 27 U/L (14-59); AST 19 U/L (15-37); Albumin 4.3 g/dL (3.4-5.0); Alkaline Phosphatase 97 U/L (46-116); Anion Gap 11.2 mmol/L (3-11); BUN 14 mg/dL (7-18); Bilirubin, Total 0.7 mg/dL (0.2-1.0); CO2 26.8 mmol/L (21.0-32.0); CREATININE 0.7 mg/dL (0.55-1.02); Calcium 9.7 mg/dL (8.5-10.1); Chloride 103 mmol/L (98-107); Glucose 90 mg/dL (74-106); Potassium 3.7 mmol/L (3.5-5.1); Sodium 141 mmol/L (136-145); Total Protein 7.7 g/dL (6.4-8.2)
== END 2022-11-07 14:44 | disposition home or self-care (01) ==
LOC: LBO 14:44
PROVIDERS: PCP Physician Assistant Medical; Visit Provider Nurse Practitioner Family
DX: R07.89 Other chest pain (principal); M79.18 Myalgia, other site; Z82.49 Family history of ischemic heart disease and other diseases of the circulatory system
CPT/HCPCS: 36415; 80053; 85027

== ENCOUNTER 2022-11-14 00:28 | Outpatient (CLI) | payer MEDICAID, SELFPAY ==
--- NOTE | 2022-11-14 06:43 | ETT_ITS ---
APPROVED REPORT Exam: Exercise Treadmill Patient Location: Out-Patient Room/Bed: Stress Nurse: Jv Short RN Ordering Provider:LYNN RAMESH, Contact Number: BMI: 41.56 Baseline Rhythm: Sinus Rhythm Indications: Chest pain. Medical History Medical History: Diabetes, HTN, Obstructive sleep apnea, Obesity Cardiac Medications: Lisinopril Allergies: PCN Cardiac Risk Factors: HTN, DM, Obesity, TRACI Previous Cardiac Procedures: none Pretest Chest Pain Characteristics: No chest pain Exercise History: Physically active Physical Disabilities: none Lung Sounds: Clear to auscultation Heart Sounds: Regular Stress Test Details Test: Exercise stress testing was performed using a Dillan protocol. Rest Stress HR Resting HR Supine: 76 bpm Max Heart Rate (APMHR): 170 bpm Resting HR Standin bpm Target HR (85% APMHR): 145 bpm Max HR Achieved: 162 bpm % of APMHR: 95 Recovery HR: 88 bpm HR response to stress: Normal HR response to stress BP Resting BP Supine: 118/86 mmHg Resting BP Standin/88 mmHg Max BP: 130/86 mmHg Recovery BP: 120/78 mmHg BP response to stress: Normal blood pressure response to stress. ECG Resting ECG: Sinus Rhythm Ectopy: none Stress ECG: Sinus Tachycardia ST Change: No significant ST segment changes noted Arrhythmia: None Recovery ECG: Sinus Rhythm Recovery Arrhythmia: None Clinical Reason for Termination: Fatigue, Target HR Achieved Stress Symptoms: none Exercise duration: 6 min47 sec Highest Stage Reached: Stage 3: 3.4 mph at 14% grade. Exercise capacity: 8.23 METs Angina Score: None Goldman Treadmill Score: 6.2 Rate Pressure Product: [id number] Stress ECG Conclusion 1. Resting electrocardiogram was within normal limits 2. Patient exercised on the Dillan protocol and completed a workload of 8.23 METS 3. Normal heart rate and blood pressure response to exercise. The patient achieved 95% of predicted heart rate for age 4. There was no electrocardiographic evidence of myocardial ischemia 5. There were no significant dysrhythmias Goldman Treadmill Score is 6.2 which is Low risk. Stress Test Summary STAGE Time (mins) Speed (mph) Grade (%) HR BP SpO2 SYMPTOMS METS Supine 76 118/86 96 none Standing 88 120/88 96 none 1 3 1.7 10 132 130/86 94 none 4.5 2 6 2.5 12 146 98 none 7 3 9 3.4 14 160 none 10 1 min recovery 160 130/86 none 3 min recovery 94 120/80 none 6 min recovery 93 126/78 none
== END 2022-11-14 00:48 ==
LOC: DI 00:28
PROVIDERS: PCP Physician Assistant Medical; Visit Provider Nurse Practitioner Family
DX: R07.9 Chest pain, unspecified (principal)
CPT/HCPCS: 93017

== ENCOUNTER → 2022-12-20 01:02 | Outpatient (CLI) | payer MEDICAID, SELFPAY ==
--- NOTE | 2022-12-20 | DI.MAMMO_ITS ---
Exam(s) MAMMO SCREENING EXAM: MAMMO SCREENING CLINICAL HISTORY: SCREENING, Z12.39, [facility], Z00.00 TECHNIQUE: Bilateral full field digital CC and MLO mammographic images were obtained with 3D tomosyn thesis and utilizing computer aided detection (CAD). COMPARISON: This is a baseline examination. FINDINGS: Masses/Architectural Distortion: None seen. Microcalcifications: No suspicious pleomorphic-type are seen. Skin Thickening/Nipple Retraction: None. IMPRESSION: 1. No significant interval change with no specific features of malignancy noted. 2. Unless there is more urgent need, screening mammography is recommended, as per [employer] guidelines. BI-RADS Category 1 - Negative Breast Density - Category B - Scattered areas of fibroglandular density Breast density category C or D implies that the patient has dense breast tissue. Dense breast tissue is very common and is not abnormal but dense breast tissue can make it harder to find cancer on a ma mmogram. Also, dense breast tissue may increase their breast cancer risk. This information about the result of the mammogram report was provided to the patient to raise their awareness. Use this report when you speak with the patient about their risks for breast cancer, which includes their family hist ory. At that time, you may recommend for more screening tests (Ultrasound or MRI) as they might be us eful based on their risk. A negative radiographic report should not delay biopsy if a dominant or clinically suspicious mass is present. Up to ten percent of cancers are not identified on mammography. A negative report may reinforce clinical impression. Adenosis and dense breasts may obscure an underlying neoplasm. False positive reports average 6 to 10%. Patient will receive a letter notifying them of these results.
== END ==
PROVIDERS: PCP Physician Assistant Medical; Visit Provider Physician Assistant Medical
DX: Z12.31 Encounter for screening mammogram for malignant neoplasm of breast (principal)
CPT/HCPCS: 77063; 77067

== ENCOUNTER 2023-02-08 10:36 | Emergency (ER) | payer MEDICAID, SELFPAY ==
--- NOTE | 2023-02-08 10:30 | RT.EKG_ITS ---
APPROVED REPORT Exam: Resting ECG Reason for Exam: weakness, fall Patient Location: E HR:72 bpm ECG Measurements Heart Rate 72 AXIS [place] 183 P 6 QRSd 87 QRS 9 QT 396 T 31 QTc 433 Conclusion Sinus rhythm...normal P axis, V-rate 60- 99 NSR, Normal axis, normal intervals, No STEMI, no ssignificant changes from previous.
[2023-02-08 10:44] VITALS: BP 132/88; PULSE 70; RESP 18; O2SAT 100
[2023-02-08 11:11] LABS: Bilirubin Negative (Negative); Blood Large (Negative); Clarity Cloudy (Clear); Glucose Negative (Negative); Ketones Negative (Negative); Leukocyte Esterase Moderate (Negative); Nitrite Negative (Negative)
[2023-02-08 11:19] LABS: Bacteria Moderate HPF (Negative); C & S Indicated? Yes; Casts Negative LPF (Negative); Crystals Negative HPF (Negative); Epithelial Cells Few HPF (Negative); Mucus Negative (Negative); WBC 20-50 HPF (0-5)
[2023-02-08 11:38] LABS: Abs Immature Grans 0.01 10^3/uL (0.0-0.06); Absolute Basophil Count 0.03 10^3/uL (0.0-0.2); Absolute Eosinophil Count 0.13 10^3/uL (0.0-0.7); Absolute Lymphocyte Count 1.59 10^3/uL (1.2-3.4); Absolute Monocyte Count 0.36 10^3/uL (0.1-0.8); Absolute Neutrophil Count 3.25 10^3/uL (1.2-6.7); Basophils % 0.6; Eosinophils % 2.4; HCT 41.3 % (36.0-46.0); Immature Grans % 0.2; Lymphocytes % 29.6; MCH 31.7 pg (27.0-33.0); MCHC 33.9 % (32.0-36.0); MCV 93 fL (80-95); MPV 8.3 fL (8.0-11.0); Monocytes % 6.7; Neutrophils % 60.5; Platelet Count 241 10^3/uL (130-400); RBC 4.42 10^6/uL (3.93-5.22); RDW 13.7 % (11.7-14.6); RDW-SD 47.4 fL; WBC 5.37 10^3/uL (4.4-10.8)
[2023-02-08 11:59] LABS: ALT 21 U/L (14-59); AST 17 U/L (15-37); Albumin 4.1 g/dL (3.4-5.0); Alkaline Phosphatase 85 U/L (46-116); Anion Gap 6.7 mmol/L (3-11); BUN 12 mg/dL (7-18); Bilirubin, Total 0.7 mg/dL (0.2-1.0); CO2 29.3 mmol/L (21.0-32.0); CREATININE 0.6 mg/dL (0.55-1.02); Calcium 9.3 mg/dL (8.5-10.1); Chloride 104 mmol/L (98-107); Estimated GFR 109.28 (mL/min/1.73m2); Glucose 91 mg/dL (74-106); Potassium 3.5 mmol/L (3.5-5.1); Sodium 140 mmol/L (136-145); Total Protein 7.9 g/dL (6.4-8.2)
[2023-02-08 11:59] LABS: COVID-19 PCR Negative (Negative); Influenza A PCR Negative (Negative); Influenza B PCR Negative (Negative); RSV PCR Negative (Negative)
[2023-02-08 12:02] LABS: Source Nasopharynx
[2023-02-08 12:06] LABS: Troponin I < 50 ng/L (<or=60)
--- NOTE | 2023-02-08 12:50 | DI.RAD_ITS ---
Exam(s) XR CHEST 2V PA LATERAL EXAM: XR CHEST 2V PA LATERAL CLINICAL HISTORY: chest pain. TECHNIQUE: 2D digital imaging was performed. COMPARISON: CR,XR XR PORTABLE CHEST AP from 07/01/2020 FINDINGS: 2 views: Heart size is normal. The mediastinum is not widened. Lungs are clear. No infiltrates nor pleural effusions. IMPRESSION: No acute pulmonary findings. DATA REPOSITORY: RADIATION DOSE DELIVERED:
--- NOTE | 2023-02-08 13:14 | ED.GENADUL_ITS ---
Discharge Plan Disposition Patient Disposition: Home Discharge Details Clinical Impression: UTI (urinary tract infection), Atypical chest pain Primary Care Provider: Riri Awad ED Provider: Lennie Sahu Home Meds and New Rx's Prescriptions: New cephalexin 500 mg capsule 500 mg PO BID 7 Days Qty: 14 0RF Continued omeprazole 40 mg capsule,delayed release(DR/EC) 40 mg PO DAILY Qty: 90 3RF ondansetron HCl 4 mg tablet 4 mg PO Q6H PRN (Reason: nausea and vomiting) Qty: 14 1RF prochlorperazine maleate 5 mg tablet See Rx Instructions PO TID PRN (Reason: headaches) Qty: 30 3RF Rx Instructions: 5-10 mg orally three times a day PRN; acetaminophen [Tylenol Extra Strength] 500 mg tablet 1,000 mg PO Q6H PRN cyclobenzaprine 10 mg tablet 10 mg PO Q8H Qty: 10 0RF Mirena 20 mcg/24 hours (7 yrs) 52 mg intrauterine device 1 device intrauterine ONCE Rx Instructions: as a single dose meclizine 12.5 mg tablet 12.5 mg PO TID PRN sucralfate 1 gram tablet See Rx Instructions .ROUTE .COMPLEX Qty: 90 3RF Dose Instruction: TAKE ONE TABLET BY MOUTH THREE TIMES A DAY 30 MIN BEFORE BREAKFAST, LUNCH AND DINNER Rx Instructions: TAKE ONE TABLET BY MOUTH THREE TIMES A DAY 30 MIN BEFORE BREAKFAST, LUNCH AND DINNER hydrochlorothiazide 25 mg tablet 25 mg PO DAILY Humira(CF) Pen 40 mg/0.4 mL pen injector kit 40 mg SUBCUT Q2W Patient Comments: pt states not taking lisinopril 10 mg Tablet 20 mg PO HS metformin 500 mg tablet 500 mg PO BID Qty: 30 0RF Discharge Instructions Instructions: Chest Pain (ED), Urinary Tract Infection in Women (ED) Additional Instructions: Please take antibiotics as prescribed, it looks like you have a urinary tract infection Yogurt daily while on the antibiotic Your tests today are reassuring, my recommendation is that you follow-up with your primary care physician for reassessment should you have persistent symptoms Recommend Tylenol as needed for pain and rest Stand Alone Forms: Work Release Referrals: Riri Awad PA [Primary Care Provider] - 2 days Discharge Data Discharge Date/Time-TO BE ENTERED AT DEPARTURE: 02/08/23 13:47 Medical Decision Making 52-year-old female presenting alert and oriented, reproducible chest wall pain, EKG without evidence of obvious ischemia Afebrile and nontoxic, heart score of 3, symptoms since last night, no indication for repeat troponin at this time, will refer back to primary care physician, will use supportive care Work note supplied I suspect this is atypical chest pain, likely musculoskeletal in nature, low suspicion clinically for PE given no hypoxia or tachypnea or exogenous estrogen Oxygen 99% on room air, temp of 97.9 which was taken personally by me orally Declines chance of Low suspicion return with new or worsening complaints reviewed HPI General Date/Time Provider Initiated Documentation: 02/08/23 10:39 . HPI Narrative: This 52-year-old female with history of hypertension, metabolic syndrome presents with report of chest pain which started after lifting some heavy boxes at the [facility]. He was lifting heavy boxes over her head which is new for her, she states the pain started several hours later she has worsened pain with movement. She denies any shortness of breath, nausea, diaphoresis. She denies any exertional shortness of breath. She denies any pleuritic chest pain or calf pain or swelling. Denies any recent flights, surgeries, long drives. She has a family history of coronary artery disease but she does not smoke. Related Data Home Medications Medication Instructions Recorded Confirmed lisinopril 10 mg tablet 20 mg PO HS 06/28/19 10/21/22 adalimumab 40 mg/0.4 mL 40 mg subcut Q2W 05/13/21 06/22/22 subcutaneous pen kit (Humira(CF) Pen) hydrochlorothiazide 25 mg tablet 25 mg PO DAILY 05/13/21 06/22/22 acetaminophen 500 mg tablet 1,000 mg PO Q6H PRN 05/19/21 10/21/22 (Tylenol Extra Strength) omeprazole 40 mg capsule,delayed 40 mg PO DAILY #90 caps 07/28/21 10/21/22 release ondansetron HCl 4 mg tablet 4 mg PO Q6H PRN nausea and 07/28/21 10/21/22 vomiting #14 tabs levonorgestrel 21 mcg/24 hours (8 1 device intrauterine ONCE 11/05/21 10/21/22 yrs) 52 mg intrauterine device (Mirena) meclizine 12.5 mg tablet 12.5 mg PO TID PRN 11/05/21 10/21/22 prochlorperazine maleate 5 mg See Rx Instructions PO TID PRN 12/23/21 06/22/22 tablet headaches #30 tabs cyclobenzaprine 10 mg tablet 10 mg PO Q8H #10 tabs 06/13/22 06/22/22 sucralfate 1 gram tablet See Rx Instructions .Route 06/13/22 10/21/22 .COMPLEX #90 tabs metformin 500 mg tablet 500 mg PO BID #30 tabs 06/22/22 10/21/22 cephalexin 500 mg capsule 500 mg PO BID 7 days #14 caps 02/08/23 Previous Rx's Medication Instructions Recorded omeprazole 40 mg capsule,delayed 40 mg PO DAILY #90 caps 07/28/21 release ondansetron HCl 4 mg tablet 4 mg PO Q6H PRN nausea and 07/28/21 vomiting #14 tabs prochlorperazine maleate 5 mg See Rx Instructions PO TID PRN 12/23/21 tablet headaches #30 tabs cyclobenzaprine 10 mg tablet 10 mg PO Q8H #10 tabs 06/13/22 sucralfate 1 gram tablet See Rx Instructions .Route 06/13/22 .COMPLEX #90 tabs metformin 500 mg tablet 500 mg PO BID #30 tabs 06/22/22 cephalexin 500 mg capsule 500 mg PO BID 7 days #14 caps 02/08/23 Allergies Allergy/AdvReac Type Severity Reaction Status Date / Time lactose Allergy Mild Other (See Unverified 02/08/23 10:50 Comment) Penicillins Allergy Unknown Skin Rash Unverified 02/08/23 10:50 General Stated Complaint: Chest Pain ALBINO: 3 PFSH All Active Problems (Updated 02/08/23 @ 13:21 by ZENY Geiger) Atypical chest pain (Acute) UTI (urinary tract infection) (Acute) COVID-19 (Acute) Heart burn (Acute) Nausea (Acute) Post-cholecystectomy syndrome (Acute) Migraine headache without aura (Acute) Medical History Anemia due to chronic blood loss (12/11/12) Depression Dizziness Family distress Former smoker HTN (hypertension) Hx of sleep apnea Menometrorrhagia (12/11/12) Migraine headache Neck pain on right side Obesity Pancreatitis Psoriasis PTSD (post-traumatic stress disorder) Snoring Tobacco use Unresolved grief Vertigo Surgical History History of carpal tunnel release of both wrists History of section x5 History of cholecystectomy Hx of appendectomy Hx of tonsillectomy S/P laparoscopic cholecystectomy (~05/26/21) Chronic cholecystitis and Cholelithiasis Social History Smoking/Tobacco Use Status: Former Tobacco Use Quit Date: 02/20/14 Smoking risk assessment performed?: Yes Drug use: Never Substance use type: does not use Housing: house Current gender identity: female Do you feel safe at home: Yes Do you feel safe in your relationship?: Yes Course Vital Signs Vital signs: Vital Signs Pulse 70 02/08/23 10:44 Respiratory Rate 18 02/08/23 10:44 Blood Pressure 132/88 02/08/23 10:44 Pulse Oximetry 100 02/08/23 10:44 Pulse 70 02/08/23 10:44 Respiratory Rate 18 02/08/23 10:44 Respiratory Effort Normal 02/08/23 11:37 Respiratory Depth Normal 02/08/23 11:37 Respiratory Pattern Normal 02/08/23 11:37 Blood Pressure 132/88 02/08/23 10:44 Pulse Oximetry 100 02/08/23 10:44 Oxygen Delivery Method Room Air 02/08/23 10:44 Oxygen Flow Rate 0 02/08/23 10:44 Lab/Test Results Lab/Test Results: 02/08/23 10:58 Urine - Reflex from Ua Urine Culture - Pending Laboratory Tests Range/Units 02/08/23 02/08/23 02/08/23 10:39 10:58 11:02 WBC (4.4-10.8) 10^3/uL RBC (3.93-5.22) 10^6/uL Hgb (11.2-15.7) g/dL Hct (36.0-46.0) % MCV (80-95) fL MCH (27.0-33.0) pg MCHC (32.0-36.0) % RDW (11.7-14.6) % Plt Count (130-400) 10^3/uL MPV (8.0-11.0) fL Immature Gran % Neutrophils % Band Neutrophils % Lymphocytes % Atypical Lymphs % Monocytes % Eosinophils % Basophils % Metamyelocytes % Myelocytes % Promyelocytes % Other Cells % Nucleated RBC % (0.0-0.3) % Absolute Neutrophils (1.2-6.7) 10^3/uL Absolute Lymphocytes (1.2-3.4) 10^3/uL Absolute Monocytes (0.1-0.8) 10^3/uL Absolute Eosinophils (0.0-0.7) 10^3/uL Absolute Basophils (0.0-0.2) 10^3/uL RBC Morphology Polychromasia Hypochromasia Poikilocytosis Basophilic Stippling Anisocytosis Microcytosis Macrocytosis Spherocytes Tear Drop Cells Ovalocytes Stomatocytes [place] Bodies [place] Cells/Echinocytes Acanthocytes (Spur) Schistocytes VBG Lactate Cancelled Sodium (136-145) mmol/L Potassium (3.5-5.1) mmol/L Chloride (98-107) mmol/L Carbon Dioxide (21.0-32.0) mmol/L Anion Gap (3-11) mmol/L BUN (7-18) mg/dL Creatinine (0.55-1.02) mg/dL Est GFR (CKD-EPI 2020) (mL/min/1.73m2) Glucose (74-106) mg/dL Calcium (8.5-10.1) mg/dL Total Bilirubin (0.2-1.0) mg/dL AST (15-37) U/L ALT (14-59) U/L Alkaline Phosphatase (46-116) U/L Troponin I (<or=60) ng/L Total Protein (6.4-8.2) g/dL Albumin (3.4-5.0) g/dL Procalcitonin Cancelled Urine Color (Yellow) Yellow Urine Clarity (Clear) Cloudy Urine pH (5-8) 6.0 Ur Specific [place] (1.005-1.025) 1.020 Urine Protein (Negative) mg/dL Negative Urine Ketones (Negative) mg/dL Negative Urine Blood (Negative) Large H Urine Nitrite (Negative) Negative Urine Bilirubin (Negative) Negative Urine Urobilinogen (Up to 0.2) mg/dL 1.0 H Ur Leukocyte Esterase (Negative) Moderate H Urine RBC (0-2) HPF 10-20 H Urine WBC (0-5) HPF 20-50 H Ur Epithelial Cells (Negative) HPF Few Urine Crystals (Negative) HPF Negative Urine Bacteria (Negative) HPF Moderate Urine Casts (Negative) LPF Negative Urine Mucus (Negative) Negative Ur Culture Indicated? Yes Urine Glucose (Negative) mg/dL Negative COVID-19 Source Nasopharynx SARS-CoV-2 (PCR) (Negative) Negative Influenza Type A (PCR) (Negative) Negative Influenza Type B (PCR) (Negative) Negative RSV (PCR) (Negative) Negative Range/Units 02/08/23 02/08/23 02/08/23 11:30 11:31 13:42 WBC (4.4-10.8) 10^3/uL 5.37 Cancelled RBC (3.93-5.22) 10^6/uL 4.42 Cancelled Hgb (11.2-15.7) g/dL 14.0 Cancelled Hct (36.0-46.0) % 41.3 Cancelled MCV (80-95) fL 93 Cancelled MCH (27.0-33.0) pg 31.7 Cancelled MCHC (32.0-36.0) % 33.9 Cancelled RDW (11.7-14.6) % 13.7 Cancelled Plt Count (130-400) 10^3/uL 241 Cancelled MPV (8.0-11.0) fL 8.3 Cancelled Immature Gran % 0.2 Cancelled Neutrophils % 60.5 Cancelled Band Neutrophils % Cancelled Lymphocytes % 29.6 Cancelled Atypical Lymphs % Cancelled Monocytes % 6.7 Cancelled Eosinophils % 2.4 Cancelled Basophils % 0.6 Cancelled Metamyelocytes % Cancelled Myelocytes % Cancelled Promyelocytes % Cancelled Other Cells % Cancelled Nucleated RBC % (0.0-0.3) % 0.0 Cancelled Absolute Neutrophils (1.2-6.7) 10^3/uL 3.25 Cancelled Absolute Lymphocytes (1.2-3.4) 10^3/uL 1.59 Cancelled Absolute Monocytes (0.1-0.8) 10^3/uL 0.36 Cancelled Absolute Eosinophils (0.0-0.7) 10^3/uL 0.13 Cancelled Absolute Basophils (0.0-0.2) 10^3/uL 0.03 Cancelled RBC Morphology Cancelled Polychromasia Cancelled Hypochromasia Cancelled Poikilocytosis Cancelled Basophilic Stippling Cancelled Anisocytosis Cancelled Microcytosis Cancelled Macrocytosis Cancelled Spherocytes Cancelled Tear Drop Cells Cancelled Ovalocytes Cancelled Stomatocytes Cancelled [place] Bodies Cancelled [place] Cells/Echinocytes Cancelled Acanthocytes (Spur) Cancelled Schistocytes Cancelled VBG Lactate Sodium (136-145) mmol/L 140 Potassium (3.5-5.1) mmol/L 3.5 Chloride (98-107) mmol/L 104 Carbon Dioxide (21.0-32.0) mmol/L 29.3 Anion Gap (3-11) mmol/L 6.7 BUN (7-18) mg/dL 12 Creatinine (0.55-1.02) mg/dL 0.6 Est GFR (CKD-EPI 2020) (mL/min/1.73m2) 109.28 Glucose (74-106) mg/dL 91 Calcium (8.5-10.1) mg/dL 9.3 Total Bilirubin (0.2-1.0) mg/dL 0.7 AST (15-37) U/L 17 ALT (14-59) U/L 21 Alkaline Phosphatase (46-116) U/L 85 Troponin I (<or=60) ng/L < 50 Cancelled Total Protein (6.4-8.2) g/dL 7.9 Albumin (3.4-5.0) g/dL 4.1 Procalcitonin Urine Color (Yellow) Urine Clarity (Clear) Urine pH (5-8) Ur Specific [place] (1.005-1.025) Urine Protein (Negative) mg/dL Urine Ketones (Negative) mg/dL Urine Blood (Negative) Urine Nitrite (Negative) Urine Bilirubin (Negative) Urine Urobilinogen (Up to 0.2) mg/dL Ur Leukocyte Esterase (Negative) Urine RBC (0-2) HPF Urine WBC (0-5) HPF Ur Epithelial Cells (Negative) HPF Urine Crystals (Negative) HPF Urine Bacteria (Negative) HPF Urine Casts (Negative) LPF Urine Mucus (Negative) Ur Culture Indicated? Urine Glucose (Negative) mg/dL COVID-19 Source SARS-CoV-2 (PCR) (Negative) Influenza Type A (PCR) (Negative) Influenza Type B (PCR) (Negative) RSV (PCR) (Negative)
[2023-02-08 13:41] VITALS: BP 131/94; PULSE 77; O2SAT 99
== END 2023-02-08 13:47 | disposition home or self-care (01) ==
PROVIDERS: Emergency Medicine Emergency Medical Services; Emergency Provider Physician Assistant; PCP Physician Assistant Medical
DX: R07.9 Chest pain, unspecified (principal); R42 Dizziness and giddiness; N39.0 Urinary tract infection, site not specified; I10 Essential (primary) hypertension; Z87.891 Personal history of nicotine dependence; Z11.52 Encounter for screening for COVID-19
CPT/HCPCS: 36415; 80053; 84145; 87040; 87637; 93005; 99284; 71046; 81003; 81015; 83605; 84484; 85025; 87086; 93010; 99283

== ENCOUNTER 2023-04-06 14:59 | Outpatient (REF) | payer MEDICAID, SELFPAY | END 2023-04-06 15:00 | disposition home or self-care (01) | LOC: NCHCN 14:59 | PROVIDERS: PCP Physician Assistant Medical; Visit Provider Physician Assistant Medical | DX: J02.9 Acute pharyngitis, unspecified (principal) | CPT/HCPCS: 87070 ==

== ENCOUNTER 2024-05-17 09:41 | Outpatient (CLI) | payer MEDICAID, SELFPAY ==
--- NOTE | 2024-05-17 09:30 | RT.EKG_ITS ---
APPROVED REPORT Exam: Resting ECG Reason for Exam: hypertension Patient Location: O HR:74 bpm ECG Measurements Heart Rate 74 AXIS [place] 184 P 24 QRSd 96 QRS 28 QT 392 T 37 QTc 435 Conclusion Sinus rhythm...normal P axis, V-rate 50- 99 Normal Electrocardiogram
== END 2024-05-17 09:42 | disposition home or self-care (01) ==
LOC: DI.CM 09:45
PROVIDERS: PCP Physician Assistant Medical; Visit Provider Nurse Practitioner Family
DX: R07.89 Other chest pain (principal)
CPT/HCPCS: 93010

== ENCOUNTER 2024-05-17 10:24 | Emergency (ER) | payer MEDICAID, SELFPAY ==
[2024-05-17] VITALS (7 sets, daily range): BP systolic 145–166; BP diastolic 97–117; PULSE 70–75; RESP 13–20; TEMP 36.8; O2SAT 96–98
--- NOTE | 2024-05-17 10:15 | RT.EKG_ITS ---
APPROVED REPORT Exam: Resting ECG Reason for Exam: chest pain Patient Location: E HR:75 bpm ECG Measurements Heart Rate 75 AXIS [place] 177 P 22 QRSd 81 QRS 23 QT 380 T 31 QTc 425 Conclusion Sinus rhythm...normal P axis, V-rate 60- 99
--- NOTE | 2024-05-17 10:45 | DI.RAD_ITS ---
Exam(s) XR CHEST 2V PA LATERAL EXAM: XR CHEST 2V PA LATERAL CLINICAL HISTORY: Chest pain. TECHNIQUE: 2D digital imaging was performed. COMPARISON: CR XR CHEST 2V PA LATERAL from 02/08/2023 FINDINGS: 2 views: Heart size is normal. The mediastinum is not widened. Lungs are clear. No infiltrates nor pleural effusions. IMPRESSION: No acute pulmonary findings. DATA REPOSITORY: RADIATION DOSE DELIVERED:
[2024-05-17 11:01] LABS: Abs Immature Grans 0.01 10^3/uL (0.0-0.06); Absolute Basophil Count 0.03 10^3/uL (0.0-0.2); Absolute Eosinophil Count 0.14 10^3/uL (0.0-0.7); Absolute Monocyte Count 0.47 10^3/uL (0.1-0.8); Basophils % 0.4 %; HCT 43.2 % (36.0-46.0); HGB 14.7 g/dL (11.2-15.7); Immature Grans % 0.1 %; Lymphocytes % 21.3 %; MCV 94 fL (80-95); MPV 8.4 fL (8.0-11.0); Monocytes % 6.7 %; Neutrophils % 69.5 %; Platelet Count 258 10^3/uL (130-400); RDW 13.3 % (11.7-14.6); RDW-SD 45.6 fL; WBC 7.05 10^3/uL (4.4-10.8)
[2024-05-17 11:19] LABS: ALT 25 U/L (14-59); AST 18 U/L (15-37); Albumin 4.1 g/dL (3.4-5.0); Alkaline Phosphatase 95 U/L (46-116); Anion Gap 6.9 mmol/L (3-11); BUN 16 mg/dL (7-18); Bilirubin, Total 0.6 mg/dL (0.2-1.0); CO2 30.1 mmol/L (21.0-32.0); CREATININE 0.6 mg/dL (0.55-1.02); Calcium 9.2 mg/dL (8.5-10.1); Chloride 106 mmol/L (98-107); Estimated GFR 108.61 (mL/min/1.73m2); Glucose 95 mg/dL (74-106); Lipase 32 U/L (<78); Potassium 3.7 mmol/L (3.5-5.1); Sodium 143 mmol/L (136-145); Total Protein 7.8 g/dL (6.4-8.2)
[2024-05-17 11:22] LABS: Troponin I < 4 ng/L (<or=51)
[2024-05-17 12:21] LABS: Troponin I < 4 ng/L (<or=51)
--- NOTE | 2024-05-17 14:54 | ED.GENADUL_ITS ---
Discharge Plan Disposition Patient Disposition: Home Condition: Stable Discharge Details Clinical Impression: Atypical chest pain, Chest wall pain Primary Care Provider: Riri Awad ED Provider: Lennie Sahu Home Meds and New Rx's Prescriptions: New cyclobenzaprine 10 mg tablet 10 mg PO TID PRNQty: 10 0RF Continued ondansetron HCl 4 mg tablet 4 mg PO Q8H PRN (Reason: nausea and vomiting) Qty: 10 0RF acetaminophen [Tylenol Extra Strength] 500 mg tablet 1,000 mg PO Q6H PRN Mirena 20 mcg/24 hours (7 yrs) 52 mg intrauterine device 1 device intrauterine ONCE Rx Instructions: as a single dose Discharge Instructions Instructions: Chest Pain, Adult ED Additional Instructions: Please follow-up with your doctor regarding your blood pressure is still slightly elevated Take Motrin 600 mg every 8 hours with food for the next 3 to 5 days to see if it improves her pain You may also take Flexeril which is a muscle relaxant at night as needed for discomfort do not combine this with alcohol or drive while taking this medication Please return should you develop worsening chest pain, shortness of breath, or should any new concerns arise Stand Alone Forms: Work Release HPI General Date/Time Provider Initiated Documentation: 05/17/24 10:25 . HPI Narrative: The patient reports chest pain starting while seated at work today. She went to urgent care for assessment. She helped a friend move this weekend but had no pain until today. She states work has been stressful. Pain worsens with touch. No shortness of breath, nausea, vomiting, sweatiness, calf pain, or swelling. No history of coagulopathy, early cardiac history in parents, smoking, or illicit substance use. No hyperlipidemia. Remote history of hypertension, medication discontinued due to good control. Related Data Home Medications ?Medication ?Instructions ?Recorded ?Confirmed acetaminophen 500 mg tablet 1,000 mg PO Q6H PRN 05/19/21 05/17/24 (Tylenol Extra Strength) levonorgestrel 21 mcg/24 hr (up to 1 device intrauterine ONCE 11/05/21 05/17/24 8 years) 52 mg intrauterine device (Mirena) ondansetron HCl 4 mg tablet 4 mg PO Q8H PRN nausea and 04/04/24 05/17/24 vomiting #10 tabs cyclobenzaprine 10 mg tablet 10 mg PO TID PRN #10 tabs 05/17/24 Previous Rx's ?Medication ?Instructions ?Recorded ondansetron HCl 4 mg tablet 4 mg PO Q8H PRN nausea and 04/04/24 vomiting #10 tabs cyclobenzaprine 10 mg tablet 10 mg PO TID PRN #10 tabs 05/17/24 Allergies Allergy/AdvReac Type Severity Reaction Status Date / Time lactose Allergy Mild Other (See Unverified 05/17/24 10:33 Comment) Penicillins Allergy Unknown Skin Rash Unverified 05/17/24 10:33 General Stated Complaint: Chest Pain ALBINO: 2 Exam Narrative Exam Narrative: General Appearance: Alert and oriented, in no acute distress. Vital signs: Within normal limits. HEENT: Within normal limits. Respiratory: Lungs clear to auscultation. Cardiovascular: Regular heart rate and rhythm. Back, Musculoskeletal: Reproducible chest wall tenderness. Extremities: No calf swelling, tenderness, or peripheral edema. Distal pulses intact. Skin: Warm and dry, no rash. Neurological: Normal. Course Vital Signs Vital signs: Vital Signs Temperature 36.8 C 05/17/24 10:30 Pulse 75 05/17/24 10:30 Respiratory Rate 20 05/17/24 10:30 Blood Pressure 166/117 H 05/17/24 10:30 Temperature 36.8 C 05/17/24 10:30 Pulse 70 05/17/24 11:01 Pulse 71 05/17/24 11:00 Respiratory Rate 16 05/17/24 10:50 Blood Pressure 145/97 H 05/17/24 11:01 Blood Pressure Mean 113 05/17/24 11:01 Pulse Oximetry 97 05/17/24 11:01 Pain Level 1 05/17/24 10:56 Lab/Test Results Lab/Test Results: Laboratory Tests Range/Units 05/17/24 05/17/24 05/17/24 10:43 11:46 13:49 WBC (4.4-10.8) 10^3/uL 7.05 RBC (3.93-5.22) 10^6/uL 4.60 Hgb (11.2-15.7) g/dL 14.7 Hct (36.0-46.0) % 43.2 MCV (80-95) fL 94 MCH (27.0-33.0) pg 32.0 MCHC (32.0-36.0) % 34.0 RDW (11.7-14.6) % 13.3 Plt Count (130-400) 10^3/uL 258 MPV (8.0-11.0) fL 8.4 Immature Gran % % 0.1 Neutrophils % % 69.5 Lymphocytes % % 21.3 Monocytes % % 6.7 Eosinophils % % 2.0 Basophils % % 0.4 Nucleated RBC % (0.0-0.3) % 0.0 Absolute Neutrophils (1.2-6.7) 10^3/uL 4.90 Absolute Lymphocytes (1.2-3.4) 10^3/uL 1.50 Absolute Monocytes (0.1-0.8) 10^3/uL 0.47 Absolute Eosinophils (0.0-0.7) 10^3/uL 0.14 Absolute Basophils (0.0-0.2) 10^3/uL 0.03 Sodium (136-145) mmol/L 143 Potassium (3.5-5.1) mmol/L 3.7 Chloride (98-107) mmol/L 106 Carbon Dioxide (21.0-32.0) mmol/L 30.1 Anion Gap (3-11) mmol/L 6.9 BUN (7-18) mg/dL 16 Creatinine (0.55-1.02) mg/dL 0.6 Est GFR (CKD-EPI 2020) (mL/min/1.73m2) 108.61 Glucose (74-106) mg/dL 95 Calcium (8.5-10.1) mg/dL 9.2 Total Bilirubin (0.2-1.0) mg/dL 0.6 AST (15-37) U/L 18 ALT (14-59) U/L 25 Alkaline Phosphatase (46-116) U/L 95 Troponin I (<or=51) ng/L < 4 < 4 Cancelled Total Protein (6.4-8.2) g/dL 7.8 Albumin (3.4-5.0) g/dL 4.1 Lipase (<78) U/L 32 Medical Decision Making Two troponins less than 4. Chest x-ray shows no acute abnormality. EKG is nonischemic. Initial Assessment: -year-old female presents with chest pain which started while seated at work today. Pain worsens with touch. No shortness of breath, nausea, vomiting, sweatiness, calf pain, or swelling. No history of coagulopathy, early cardiac history in family, smoking, or illicit substance use. Remote history of hypertension, medication discontinued due to good control. Physical exam: reproducible chest wall tenderness without rashes or lesions, lungs clear, regular heart rate and rhythm, no peripheral edema. ED Course: - Chest x-ray per radiology interpretation of my review, does not show evidence of acute abnormality. - Two troponins less than four which is reassuring. - EKG is nonischemic. - Patient is chest pain free at time of reassessment and has reproducible discomfort. - Tylenol encouraged. - Ibuprofen every 8 hours for the next 3 days. - Muscle relaxants as needed. - Return precautions reviewed and patient expressed understanding. Final Assessment: Patient's chest pain began while seated at work and worsens with touch. No acute abnormalities found in chest x-ray, troponin levels, or EKG. Pain is reproducible and patient is chest pain free at reassessment. Recomm ended Tylenol, ibuprofen, and muscle relaxants. Clinical Impression: - Chest pain Disposition: - Discharge Patient Education: Return precautions reviewed and patient expressed understanding. MDM Components Evaluation: - Number of Differential Diagnoses or Management Options: Chest pain - Amount and Complexity of Data Reviewed: Chest x-ray, troponin levels, EKG - Risk of Complication and Morbidity or Mortality: Low risk based on diagnostic results and patient presentation. Quality:[facility] Health Related Social Needs: No Data to Display PFSH All Active Problems (Updated 05/17/24 @ 12:43 by ZENY Geiger) Chest wall pain (Acute) Atypical chest pain (Acute) COVID-19 (Acute) Heart burn (Acute) Nausea (Acute) Post-cholecystectomy syndrome (Acute) Migraine headache without aura (Acute) Medical History Tobacco use Family distress Obesity PTSD (post-traumatic stress disorder) Neck pain on right side Depression Unresolved grief Migraine headache Snoring Pancreatitis Dizziness Vertigo Menometrorrhagia (12/11/12) Anemia due to chronic blood loss (12/11/12) Hx of sleep apnea Psoriasis HTN (hypertension) Former smoker Surgical History History of cholecystectomy S/P laparoscopic cholecystectomy (~05/26/21) Chronic cholecystitis and Cholelithiasis History of carpal tunnel release of both wrists Hx of tonsillectomy Hx of appendectomy History of section x5 Social History Smoking/Tobacco Use Status: Former Tobacco Use Quit Date: 02/20/14 Smoking risk assessment performed?: Yes Drug use: Never Substance use type: does not use Housing: house Current gender identity: female Do you feel safe at home: Yes Do you feel safe in your relationship?: Yes
== END 2024-05-17 12:52 | disposition home or self-care (01) ==
PROVIDERS: Emergency Provider Physician Assistant; PCP Physician Assistant Medical
DX: R07.89 Other chest pain (principal); I10 Essential (primary) hypertension; Z87.891 Personal history of nicotine dependence
CPT/HCPCS: 36415; 80053; 83690; 93005; 99285; 71046; 84484; 85025; 93010; 99284